=== PATIENT | male | born 1940 | race Caucasian/White ===

== ENCOUNTER 2020-10-13 06:29 | Outpatient (REF) | payer MEDICARE, BC, SELFPAY ==
[2020-10-13 11:23] LABS: MANUAL DIFF FLAG NO
[2020-10-13 11:30] LABS: Basophils Absolute Auto 0.1 X10*3/uL (0.0-0.2); Basophils Percent Auto 0.9 % (0-2); Eosinophils Absolute Auto 0.5 X10*3/uL (0.0-0.4); Eosinophils Percent Auto 9.7 % (0-4); Imm Gran Abs Auto 0.04 X10*3/uL (0.00-0.03); Imm Gran Pct Auto 0.7 % (0.0-0.4); Lymphocytes Absolute Auto 1.2 X10*3/uL (1.2-4.9); Lymphocytes Percent Auto 22.5 % (20-40); Mean Corpuscular HGB Conc 33.3 g/dl (31.0-36.0); Mean Corpuscular Volume 93.1 fL (80-98); Mean Platelet Volume 11.3 fL (9.4-12.4); Monocytes Absolute Auto 0.5 X10*3/uL (0.1-1.2); Monocytes Percent Auto 8.2 % (2-11); Neutrophils Absolute Auto 3.2 X10*3/uL (2.0-8.3); Platelet Count 186 X10*3/uL (160-400); Red Blood Count 4.19 X10*6/uL (4.60-5.80); Red Cell Distribution Width 12.6 % (11.0-16.0); White Blood Count 5.5 X10*3/uL (4.8-10.8)
[2020-10-13 11:35] LABS: Estimated Average Glucose 203 mg/dL; Hemoglobin A1c % 8.7 %
[2020-10-13 11:49] LABS: Alanine Aminotransferase 13 U/L (0-40); Albumin Level 4.6 g/dL (3.5-5.0); Alkaline Phosphatase 56 U/L (39-117); Anion Gap 16 (12-20); Aspartate Amino Transferase 13 U/L (5-37); Bilirubin Total 0.5 mg/dL (0.0-1.0); Blood Urea Nitrogen 45 mg/dL (9-16); Carbon Dioxide 26 mmol/L (22-29); Chloride 106 mmol/L (96-108); Cholesterol 150 mg/dL; Estimated Glomerular Filt Rate 38; Glucose Fasting 135 mg/dL (60-99); HDL Cholesterol 49 mg/dL; LDL Cholesterol Calculated 85 mg/dl; Potassium 5.5 mmol/l (3.3-5.1); Sodium 142 mmol/L (135-145); Triglycerides 84 mg/dL
[2020-10-13 12:00] LABS: Creatinine Urine 93.64 mg/dL; Microalbum/Creatinine Ratio Ur 54.4 ug/mg cr; Prostate Specific Antigen Scr 2.95 ng/mL (<0.05-4.0)
== END 2020-10-13 06:30 | disposition home or self-care (01) ==
LOC: HO.HMGCLDS 06:29
PROVIDERS: PCP Internal Medicine; Visit Provider Internal Medicine
DX: I12.9 Hypertensive chronic kidney disease with stage 1 through stage 4 chronic kidney disease, or unspecified chronic kidney disease (principal); E11.22 Type 2 diabetes mellitus with diabetic chronic kidney disease; N18.9 Chronic kidney disease, unspecified; E78.00 Pure hypercholesterolemia, unspecified; R35.1 Nocturia; Z12.5 Encounter for screening for malignant neoplasm of prostate
CPT/HCPCS: 36415; 80053; 80061; 82043; 83036; 84153; 85025

== ENCOUNTER 2021-02-03 11:50 | Outpatient (REF) | payer MEDICARE, BC, SELFPAY ==
[2021-02-03 13:54] LABS: MANUAL DIFF FLAG NO
[2021-02-03 13:59] LABS: Basophils Percent Auto 0.7 % (0-2); Eosinophils Absolute Auto 0.4 X10*3/uL (0.0-0.4); Eosinophils Percent Auto 6.6 % (0-4); Hematocrit 38.4 % (42-52); Imm Gran Abs Auto 0.03 X10*3/uL (0.00-0.03); Imm Gran Pct Auto 0.5 % (0.0-0.4); Lymphocytes Absolute Auto 1.1 X10*3/uL (1.2-4.9); Mean Corpuscular HGB Conc 33.9 g/dl (31.0-36.0); Mean Corpuscular Hemoglobin 31.6 pg (27.0-33.0); Mean Corpuscular Volume 93.2 fL (80-98); Mean Platelet Volume 11.1 fL (9.4-12.4); Monocytes Absolute Auto 0.5 X10*3/uL (0.1-1.2); Monocytes Percent Auto 9.3 % (2-11); Neutrophils Absolute Auto 3.7 X10*3/uL (2.0-8.3); Neutrophils Percent Auto 63.9 % (45-73); Platelet Count 180 X10*3/uL (160-400); Red Blood Count 4.12 X10*6/uL (4.60-5.80); Red Cell Distribution Width 12.9 % (11.0-16.0); White Blood Count 5.8 X10*3/uL (4.8-10.8)
[2021-02-03 14:08] LABS: Estimated Average Glucose 214 mg/dL; Hemoglobin A1c % 9.1 %
[2021-02-03 14:25] LABS: Alanine Aminotransferase 12 U/L (0-40); Albumin Level 4.4 g/dL (3.5-5.0); Alkaline Phosphatase 54 U/L (39-117); Anion Gap 14 (12-20); Aspartate Amino Transferase 11 U/L (5-37); Bilirubin Total 0.5 mg/dL (0.0-1.0); Blood Urea Nitrogen 33 mg/dL (9-16); Calcium 9.1 mg/dL (8.4-10.2); Carbon Dioxide 25 mmol/L (22-29); Chloride 105 mmol/L (96-108); Estimated Glomerular Filt Rate 42; Glucose Random 174 mg/dL (60-115); Potassium 5.8 mmol/L (3.3-5.1); Sodium 138 mmol/L (135-145); Total Protein 6.6 g/dL (6.5-8.0)
[2021-02-03 14:33] LABS: Creatinine Urine 208.78 mg/dL; Microalbum/Creatinine Ratio Ur 43.5 ug/mg cr
== END 2021-02-03 11:51 | disposition home or self-care (01) ==
LOC: HO.10HDL 11:50
PROVIDERS: Visit Provider Internal Medicine
DX: E11.9 Type 2 diabetes mellitus without complications (principal); N18.9 Chronic kidney disease, unspecified; K21.9 Gastro-esophageal reflux disease without esophagitis
CPT/HCPCS: 36415; 80053; 82043; 83036; 85025

== ENCOUNTER 2021-02-18 11:11 | Outpatient (REF) | payer MEDICARE, BC, SELFPAY ==
--- NOTE | ~2021-02-18 | US_ITS ---
EXAMINATION: US EXTRACRANIAL CAROTID DUPLEX, BILATERAL CLINICAL INFORMATION: Cervical bruit COMPARISON: 01/28/2018 TECHNIQUE: Real-time ultrasound and Doppler techniques (integrating B-mode 2-D vascular images, Doppler spectral analysis and color-flow Doppler imaging) were utilized to interrogate the extracranial carotid arteries, the vertebral arteries and proximal subclavian arteries bilaterally. The degree of stenosis is determined by criteria similar to NASCET. FINDINGS: Right Side: 1. There is mild atherosclerotic plaque seen in the bifurcation/proximal ICA region. 2. The common carotid artery PSV proximally is 87 cm/s and distally 84 cm/s. 3. The proximal internal carotid artery velocities are 61 cm/s systolic and 20 cm/s diastolic. 4. The proximal external carotid artery PSV is 191 cm/s. 5. The vertebral artery shows antegrade flow. 6. The subclavian artery waveforms are normal. Left Side: 1. There is mild atherosclerotic plaque seen in the bifurcation/proximal ICA region. 2. The common carotid artery PSV proximally is 134 cm/s and distally 67 cm/s. 3. The proximal internal carotid artery velocities are 63 cm/s systolic and 22 cm/s diastolic. 4. The proximal external carotid artery PSV is 112 cm/s. 5. The vertebral artery shows antegrade flow. 6. The subclavian artery velocity is elevated. US/US carotid duplex BI IMPRESSION: 1. RIGHT: Minimal, non-hemodynamically significant stenosis of the proximal right internal carotid artery corresponding to a 0-49% stenosis by velocity criteria. 2. LEFT: Minimal, non-hemodynamically significant stenosis of the proximal left internal carotid artery corresponding to a 0-49% stenosis by velocity criteria. 3. Disease category is stable bilaterally compared to 01/28/2018.
[2021-02-18 14:46] LABS: Anion Gap 15 (12-20); Blood Urea Nitrogen 39 mg/dL (9-16); Calcium 9.5 mg/dL (8.4-10.2); Carbon Dioxide 23 mmol/L (22-29); Chloride 108 mmol/L (96-108); Estimated Glomerular Filt Rate 45; Glucose Random 200 mg/dL (60-115); Potassium 6.3 mmol/L (3.3-5.1); Sodium 140 mmol/L (135-145)
== END 2021-02-18 11:12 | disposition home or self-care (01) ==
LOC: HO.US 11:11
PROVIDERS: PCP Internal Medicine; Visit Provider Internal Medicine
DX: R09.89 Other specified symptoms and signs involving the circulatory and respiratory systems (principal); E87.5 Hyperkalemia
CPT/HCPCS: 36415; 80048; 93880

== ENCOUNTER 2021-02-19 07:36 | Outpatient (REF) | payer MEDICARE, BC, SELFPAY ==
[2021-02-19 08:27] LABS: Anion Gap 14 (12-20); Carbon Dioxide 23 mmol/L (22-29); Chloride 108 mmol/L (96-108); Potassium 5.3 mmol/L (3.3-5.1); Sodium 140 mmol/L (135-145)
== END 2021-02-19 07:37 | disposition home or self-care (01) ==
LOC: HO.LAB 07:36
PROVIDERS: PCP Internal Medicine; Visit Provider Internal Medicine
DX: E87.5 Hyperkalemia (principal)
CPT/HCPCS: 36415; 80051

== ENCOUNTER 2021-05-31 11:10 | Outpatient (REF) | payer MEDICARE, BC, SELFPAY ==
[2021-05-31 14:00] LABS: MANUAL DIFF FLAG NO
[2021-05-31 14:08] LABS: Basophils Percent Auto 0.6 % (0-2); Eosinophils Absolute Auto 0.5 X10*3/uL (0.0-0.4); Hematocrit 37.2 % (42-52); Hemoglobin 12.4 g/dl (14.0-18.0); Imm Gran Abs Auto 0.05 X10*3/uL (0.00-0.03); Lymphocytes Absolute Auto 0.9 X10*3/uL (1.2-4.9); Lymphocytes Percent Auto 16.3 % (20-40); Mean Corpuscular HGB Conc 33.3 g/dl (31.0-36.0); Mean Corpuscular Hemoglobin 30.5 pg (27.0-33.0); Mean Corpuscular Volume 91.4 fL (80-98); Mean Platelet Volume 11.3 fL (9.4-12.4); Monocytes Absolute Auto 0.5 X10*3/uL (0.1-1.2); Monocytes Percent Auto 9.8 % (2-11); Neutrophils Absolute Auto 3.3 X10*3/uL (2.0-8.3); Neutrophils Percent Auto 63.3 % (45-73); Platelet Count 221 X10*3/uL (160-400); Red Blood Count 4.07 X10*6/uL (4.60-5.80); Red Cell Distribution Width 12.3 % (11.0-16.0); White Blood Count 5.2 X10*3/uL (4.8-10.8)
[2021-05-31 14:23] LABS: Estimated Average Glucose 194 mg/dL; Hemoglobin A1c % 8.4 %
[2021-05-31 14:39] LABS: Alanine Aminotransferase 13 U/L (0-40); Albumin Level 4.4 g/dL (3.5-5.0); Alkaline Phosphatase 78 U/L (39-117); Anion Gap 17 (12-20); Aspartate Amino Transferase 12 U/L (5-37); Bilirubin Total 0.2 mg/dL (0.0-1.0); Blood Urea Nitrogen 34 mg/dL (9-16); Calcium 9.4 mg/dL (8.4-10.2); Carbon Dioxide 20 mmol/L (22-29); Chloride 108 mmol/L (96-108); Estimated Glomerular Filt Rate 39; Glucose Random 229 mg/dL (60-115); Potassium 5.9 mmol/L (3.3-5.1); Sodium 139 mmol/L (135-145); Total Protein 6.8 g/dL (6.5-8.0)
[2021-05-31 14:48] LABS: Creatinine Urine 155.13 mg/dL; Microalbum/Creatinine Ratio Ur 18.6 ug/mg cr
== END 2021-05-31 11:11 | disposition home or self-care (01) ==
LOC: HO.HMGCLDS 11:10
PROVIDERS: PCP Internal Medicine; Visit Provider Internal Medicine
DX: E11.22 Type 2 diabetes mellitus with diabetic chronic kidney disease (principal); I12.9 Hypertensive chronic kidney disease with stage 1 through stage 4 chronic kidney disease, or unspecified chronic kidney disease; N18.9 Chronic kidney disease, unspecified
CPT/HCPCS: 36415; 80053; 82043; 83036; 85025

== ENCOUNTER 2021-08-23 08:55 | Outpatient (REF) | payer MEDICARE, BC, SELFPAY | END 2021-08-23 08:56 | disposition home or self-care (01) | LOC: HO.LAB 08:55 | PROVIDERS: PCP Internal Medicine; Visit Provider Internal Medicine | DX: Z20.822 Contact with and (suspected) exposure to COVID-19 (principal) | CPT/HCPCS: C9803; U0003; U0005 ==

== ENCOUNTER 2021-12-05 07:00 | Outpatient (REF) | payer MEDICARE, BC, SELFPAY ==
[2021-12-05 07:17] LABS: MANUAL DIFF FLAG NO
[2021-12-05 07:25] LABS: Basophils Percent Auto 0.5 % (0-2); Eosinophils Absolute Auto 0.5 X10*3/uL (0.0-0.4); Eosinophils Percent Auto 8.8 % (0-4); Hematocrit 37.6 % (42.0-52.0); Hemoglobin 12.6 g/dl (14.0-18.0); Imm Gran Abs Auto 0.03 X10*3/uL (0.00-0.03); Imm Gran Pct Auto 0.5 % (0.0-0.4); Lymphocytes Absolute Auto 1.2 X10*3/uL (1.2-4.9); Lymphocytes Percent Auto 22.7 % (20-40); Mean Corpuscular HGB Conc 33.5 g/dl (31.0-36.0); Mean Corpuscular Volume 92.6 fL (80.0-98.0); Mean Platelet Volume 10.6 fL (9.4-12.4); Monocytes Absolute Auto 0.5 X10*3/uL (0.1-1.2); Monocytes Percent Auto 8.8 % (2-11); Neutrophils Absolute Auto 3.2 x10*3/uL (2.0-8.3); Neutrophils Percent Auto 58.7 % (45-73); Platelet Count 168 X10*3/uL (160-400); Red Blood Count 4.06 X10*6/uL (4.60-5.80); Red Cell Distribution Width 12.3 % (11.0-16.0); White Blood Count 5.5 X10*3/uL (4.8-10.8)
[2021-12-05 07:37] LABS: Estimated Average Glucose 209 mg/dL; Hemoglobin A1c % 8.9 %
[2021-12-05 07:54] LABS: Appearance Urine CLEAR; Color Urine YELLOW; Glucose Urine UA 100 MG/DL (NEG); Leukocyte Esterase Urine NEG (NEG); Nitrite Urine NEG (NEG); PH 5.5 (5.0-8.0); Specific Gravity - Urine >= 1.030 (1.005-1.025); Urine Blood NEG (NEG); Urine Ketones NEG (NEG); Urine Protein TRACE MG/DL (NEG-TRACE)
[2021-12-05 08:24] LABS: Creatinine Urine 129.91 mg/dL; Microalbum/Creatinine Ratio Ur 119.3 ug/mg cr
[2021-12-05 08:33] LABS: Prostate Specific Antigen Scr 2.52 ng/mL (<0.05-4.0)
[2021-12-05 08:58] LABS: Alanine Aminotransferase 11 U/L (0-40); Albumin Level 4.3 g/dL (3.5-5.0); Alkaline Phosphatase 54 U/L (39-117); Anion Gap 14 (12-20); Aspartate Amino Transferase 12 U/L (5-37); Bilirubin Total 0.4 mg/dL (0.0-1.0); Blood Urea Nitrogen 38 mg/dL (9-16); Calcium 9.7 mg/dL (8.4-10.2); Carbon Dioxide 23 mmol/L (22-29); Chloride 109 mmol/L (96-108); Cholesterol 144 mg/dL; Estimated Glomerular Filt Rate 36; Glucose Fasting 144 mg/dL (60-99); HDL Cholesterol 51 mg/dL; LDL Cholesterol Calculated 78 mg/dl; Potassium 6.2 mmol/L (3.3-5.1); Sodium 140 mmol/L (135-145); Total Protein 7.1 g/dL (6.5-8.0); Triglycerides 77 mg/dL
== END 2021-12-05 07:01 | disposition home or self-care (01) ==
LOC: HO.LAB 07:00
PROVIDERS: PCP Internal Medicine; Visit Provider Internal Medicine
DX: Z12.5 Encounter for screening for malignant neoplasm of prostate (principal); N40.0 Benign prostatic hyperplasia without lower urinary tract symptoms; E78.00 Pure hypercholesterolemia, unspecified; I10 Essential (primary) hypertension; E11.9 Type 2 diabetes mellitus without complications
CPT/HCPCS: 36415; 80053; 80061; 81003; 82043; 83036; 84153; 85025

== ENCOUNTER 2021-12-05 09:28 | Outpatient (REF) | payer MEDICARE, BC, SELFPAY ==
[2021-12-05 12:53] LABS: Anion Gap 12 (12-20); Blood Urea Nitrogen 37 mg/dL (9-16); Calcium 9.4 mg/dL (8.4-10.2); Carbon Dioxide 24 mmol/L (22-29); Chloride 106 mmol/L (96-108); Estimated Glomerular Filt Rate 36; Glucose Random 228 mg/dL (60-115); Sodium 136 mmol/L (135-145)
== END 2021-12-05 09:29 | disposition home or self-care (01) ==
LOC: HO.HMGCLDS 09:28
PROVIDERS: PCP Internal Medicine; Visit Provider Internal Medicine
DX: E87.5 Hyperkalemia (principal)
CPT/HCPCS: 36415; 80048

== ENCOUNTER 2021-12-05 13:25 | Observation (INO) | payer MEDICARE, BC, SELFPAY ==
--- NOTE | 2021-12-05 | ECG_ITS ---
Test Reason : hyperkalemia Blood Pressure : / mmHG Vent. Rate : 084 BPM Atrial Rate : 084 BPM P-R Int : 148 ms QRS Dur : 070 ms QT Int : 328 ms P-R-T Axes : 065 034 050 degrees QTc Int : 387 ms Normal sinus rhythm Nonspecific ST abnormality Borderline ECG When compared with ECG of 05-MAY-2009 07:27, No significant change was found Referred By: Generic ED Physician Electronically Signed By:AMADEO LYLES
[2021-12-05 14:18] VITALS: BP 114/70; PULSE 86; RESP 17; TEMP 37; O2SAT 98; BMI 19.3
--- NOTE | 2021-12-05 15:13 | ED.GENADULT ---
HPI - General Adult General Chief complaint: Recheck/Abnormal Lab/Rx Stated complaint: abnormal lab result Time Seen by Provider: 12/05/21 14:52 Source: patient Limitations: no limitations History of Present Illness HPI narrative: this is an 81-year-old male sent in for an elevated potassium. He states it was 6.8. He does have known renal disease. He denies any symptoms such as dizziness, chest pain, palpitations, shortness of breath, swelling his extremities. He has been maintaining his normal diet. Related Data Allergies Allergy/AdvReac Type Severity Reaction Status Date / Time dogs and cats Allergy Unknown Uncoded 02/20/17 00:00 year round seasonal Allergy Unknown Uncoded 02/20/17 00:00 Review of Systems Review of Systems: Yes all other systems are reviewed and are negative Constitutional: Constitutional: Reports as per HPI and Denies fever(s) Eyes: Eyes: Reports as per HPI and Reports no additional eye complaints ENT: Reports system reviewed and no additional complaints, except as documented, Reports as per HPI, Denies nasal congestion, Denies nasal discharge and Denies sore throat Cardiovascular: Cardiovascular: Reports as per HPI, Denies chest pain and Denies dyspnea Respiratory: Respiratory: Reports as per HPI, Denies cough and Denies dyspnea Gastrointestinal: Gastrointestinal: Reports as per HPI, Denies abdominal pain, Denies diarrhea and Denies vomiting Genitourinary: Genitourinary: Reports as per HPI, Denies hematuria, Denies dysuria and Denies urinary frequency Musculoskeletal: Musculoskeletal: Reports no additional musculoskeletal complaints and Denies numbness Integumentary/Breasts: Skin/Breast: Reports as per HPI and Denies rash Neurologic: Reports as per HPI, Denies focal weakness and Denies numbness Psychiatric: Psychiatric: Reports no additional psychiatric complaints and Reports as per HPI Endocrine: Endocrine: Reports no additional endocrine complaints and Reports as per HPI Hematologic/Lymphatic: Hematologic/Lymphatic: Reports no additional hematologic/lymphatic complaints, Reports as per HPI and Reports other (No peripheral edema) [facility] Past Medical History Medical History (Updated 12/05/21 @ 16:40 by Karthik Yeboah MD) Diabetes Hyperkalemia Social History Social History Advance Directives: No Advance Directives Information Provided: No Physical Exam ED Vital Signs: Vital Signs - 24 hr 12/05/21 14:18 12/05/21 15:49 12/05/21 16:11 Temperature 98.6 F Pulse Rate 86 86 89 Respiratory Rate 17 12 13 Blood Pressure 114/70 138/79 Pulse Oximetry 98 BMI result Body Mass Index 19.3 Const General: no acute distress Orientation/consciousness: patient oriented x3 HENMT Head: Yes normal to inspection General nose exam: Normal external nose present Mouth: moist mucous membranes Throat: Yes posterior oropharynx normal, Yes tonsils normal and Yes uvula midline Eyes Eyelids: Yes eyelids normal Conjunctivae: conjunctivae normal Pupils: Equal, round and reactive pupils present Neck Neck: Yes supple Resp Effort & Inspection: normal respiratory effort Auscultation: clear to auscultation bilaterally Cardio Rate: regular rate Rhythm: regular rhythm Heart sounds: S1 normal heart sound present, S2 normal heart sound present, no gallops, no murmurs and no rubs GI Inspection: No distended Palpation (GI): Soft to palpation and nontender Auscultation: normal bowel sounds Skin General skin exam: other (Warm and dry) Neuro General: patient oriented x3 and CN's II-XI intact bilaterally Cranial nerves: Yes Equal, round and reactive pupils present Extrem General: Yes no pedal edema Psych Affect: normal affect Attitude: cooperative Medical Decision Making Lab Data Lab results reviewed: Yes I reviewed the patient's lab results. Result diagrams: 12/05/21 15:45 12/05/21 15:45 Labs: Lab Results 12/05/21 12/05/21 12/05/21 Range/Units 15:45 15:45 15:45 WBC 6.0 (4.8-10.8) X10*3/uL RBC 4.04 L (4.60-5.80) X10*6/uL Hgb 12.6 L (14.0-18.0) g/dl Hct 37.4 L (42.0-52.0) % MCV 92.6 (80.0-98.0) fL MCH 31.2 (27.0-33.0) pg MCHC 33.7 (31.0-36.0) g/dl RDW 12.6 (11.0-16.0) % Plt Count 171 (160-400) X10*3/uL MPV 10.5 (9.4-12.4) fL Immature Gran % (Auto) 0.7 H (0.0-0.4) % Neut % (Auto) 64.1 (45-73) % Lymph % (Auto) 19.8 L (20-40) % [place] % (Auto) 7.6 (2-11) % Eos % (Auto) 7.1 H (0-4) % Baso % (Auto) 0.7 (0-2) % Lymph # (Auto) 1.2 (1.2-4.9) X10*3/uL [place] # (Auto) 0.5 (0.1-1.2) X10*3/uL Eos # (Auto) 0.4 (0.0-0.4) X10*3/uL Baso # (Auto) 0.0 (0.0-0.2) X10*3/uL Abs Immat Gran (auto) 0.04 H (0.00-0.03) X10*3/uL Absolute Neuts (auto) 3.9 (2.0-8.3) x10*3/uL Absolute Nucleated RBC 0.000 (0.0-0.012) X10*3/uL Nucleated RBC % (auto) 0.0 (0.0-0.2) /100WBC Sodium 139 (135-145) mmol/L Potassium 5.8 H (3.3-5.1) mmol/L Chloride 106 (96-108) mmol/L Carbon Dioxide 23 (22-29) mmol/L Anion Gap 16 (12-20) BUN 38 H (9-16) mg/dL Creatinine 1.81 H (0.5-1.4) mg/dL Estim Creat Clear Calc 26.6 Estimated GFR 36 Random Glucose 261 H (60-115) mg/dL Calcium 9.3 (8.4-10.2) mg/dL Magnesium 1.9 (1.6-2.6) mg/dL Total Bilirubin 0.2 (0.0-1.0) mg/dL AST 12 (5-37) U/L ALT 11 (0-40) U/L Alkaline Phosphatase 58 (39-117) U/L Total Protein 7.2 (6.5-8.0) g/dL Albumin 4.4 (3.5-5.0) g/dL Urine Color YELLOW Urine Appearance CLEAR Urine pH 6.0 (5.0-8.0) Ur Specific [place] 1.020 (1.005-1.025) Urine Protein NEG (NEG-TRACE) MG/DL Urine Glucose (UA) >=1000 H (NEG) MG/DL Urine Ketones NEG (NEG) MG/DL Urine Blood NEG (NEG) Urine Nitrite NEG (NEG) Ur Leukocyte Esterase NEG (NEG) Urine RBC 0 (0) /HPF Urine WBC 0 (0-4) /HPF Ur Squamous Epith Cells NONE /LPF Urine Bacteria NONE /LPF ECG Data Attestation: I personally reviewed and interpreted this ECG as follows: Interpretation: sinus rhythm with a rate of 84. Peak she weighs visible in leads V2 through the 4. No ST elevation, mild depression in inferolateral leads. Discharge Plan Discharge Clinical Impression: Acute hyperkalemia, Chronic kidney insufficiency
[2021-12-05 15:49] VITALS: PULSE 86; RESP 12; O2SAT 97
[2021-12-05 15:49] LABS: MANUAL DIFF FLAG NO
[2021-12-05] MEDS: Albuterol Sulfate (0.083%) 2.5 MG/3 ML VIAL.NEB 5 MG INHALE (15:49)
[2021-12-05 15:54] LABS: Basophils Percent Auto 0.7 % (0-2); Eosinophils Absolute Auto 0.4 X10*3/uL (0.0-0.4); Eosinophils Percent Auto 7.1 % (0-4); Hematocrit 37.4 % (42.0-52.0); Hemoglobin 12.6 g/dl (14.0-18.0); Imm Gran Abs Auto 0.04 X10*3/uL (0.00-0.03); Imm Gran Pct Auto 0.7 % (0.0-0.4); Lymphocytes Absolute Auto 1.2 X10*3/uL (1.2-4.9); Lymphocytes Percent Auto 19.8 % (20-40); Mean Corpuscular HGB Conc 33.7 g/dl (31.0-36.0); Mean Corpuscular Hemoglobin 31.2 pg (27.0-33.0); Mean Corpuscular Volume 92.6 fL (80.0-98.0); Mean Platelet Volume 10.5 fL (9.4-12.4); Monocytes Absolute Auto 0.5 X10*3/uL (0.1-1.2); Monocytes Percent Auto 7.6 % (2-11); Neutrophils Absolute Auto 3.9 x10*3/uL (2.0-8.3); Neutrophils Percent Auto 64.1 % (45-73); Platelet Count 171 X10*3/uL (160-400); Red Blood Count 4.04 X10*6/uL (4.60-5.80); Red Cell Distribution Width 12.6 % (11.0-16.0)
[2021-12-05 16:01] LABS: Appearance Urine CLEAR; Color Urine YELLOW; Glucose Urine UA >=1000 MG/DL (NEG); Leukocyte Esterase Urine NEG (NEG); Nitrite Urine NEG (NEG); Urine Blood NEG (NEG); Urine Ketones NEG (NEG); Urine Protein NEG (NEG-TRACE)
[2021-12-05 16:08] LABS: RBC Urine 0 /HPF (0); WBC Urine 0 /HPF (0-4)
[2021-12-05 16:11] VITALS: BP 138/79; PULSE 89; RESP 13
[2021-12-05 16:11] LABS: Alanine Aminotransferase 11 U/L (0-40); Albumin Level 4.4 g/dL (3.5-5.0); Alkaline Phosphatase 58 U/L (39-117); Anion Gap 16 (12-20); Aspartate Amino Transferase 12 U/L (5-37); Bilirubin Total 0.2 mg/dL (0.0-1.0); Blood Urea Nitrogen 38 mg/dL (9-16); Calcium 9.3 mg/dL (8.4-10.2); Carbon Dioxide 23 mmol/L (22-29); Chloride 106 mmol/L (96-108); Creatinine Clr Calc Pharmacy 26.6; Estimated Glomerular Filt Rate 36; Glucose Random 261 mg/dL (60-115); Magnesium 1.9 mg/dL (1.6-2.6); Potassium 5.8 mmol/L (3.3-5.1); Sodium 139 mmol/L (135-145); Total Protein 7.2 g/dL (6.5-8.0)
[2021-12-05] MEDS: Insulin Regular, Human 100 UNIT/ML 3 ML VIAL 10 UNIT IVPUSH (16:12)
[2021-12-05] MEDS: Sodium Bicarbonate 8.4% 50 MEQ/50 ML SYRINGE IVPUSH (16:13)
--- NOTE | 2021-12-05 17:20 | PC.NURSE ---
Sina ([facility]) [phone]
[2021-12-05] MEDS: Sodium Polystyrene Sulfon/Sorb 15 GM/60 ML ORAL.SUSP 30 GM PO (17:21)
[2021-12-05 17:28] LABS: Glucose, Whole Blood 146 mg/dL (60-115)
[2021-12-05 17:28] LABS: Glucose, Whole Blood 212 mg/dL (60-115)
--- NOTE | 2021-12-05 17:51 | PC.NURSE ---
plan for pt to be admit to the hospital. he is aware. grandson at bedside phone number placed in notes.
--- NOTE | 2021-12-05 18:09 | PHA.MEDREC ---
Pharmacy Consult ? Medication Reconciliation Pharmacy has completed the medication reconciliation. Spoke with patient in ED who had a list of all medications which also matched claim history. Patient took all AM medications.
[2021-12-05 18:46] VITALS: BP 129/71; PULSE 94; RESP 20; TEMP 36.6; O2SAT 98
--- NOTE | 2021-12-05 18:54 | PM.IMHP ---
History of Present Illness Date of Service: 12/05/21 Attending physician on admission: Lupe Xiao Chief Complaint: HYPERKALEMIA, concern about peaked T-waves EKG 81-year-old male with history of possible CKD, diabetes, hypertension, hypercholesteremia-who was sent from PCP's office because potassium was high-as per ED physician in the PCP office is potassium was 6.8, so sent to the hospital. Patient received Kayexalate, Lokelma, nebs, insulin potassium is coming down to 5.8, ED physician given admission for overnight monitoring, also was concern of EKG peak taking T-waves which seems better than previous EKG. Denies any new complaint of chest pain or shortness of breath or abdominal pain or fever or chills or nausea or vomiting Denies any cough Denies any weakness or numbness. Review of Systems Review of Systems: As above. [facility] Medical History Diabetes Hyperkalemia Pertinent family history: Patient mother had diabetes and hypertension. Social History Advance Directives: No Advance Directives Information Provided: No Meds Allergies Allergy/AdvReac Type Severity Reaction Status Date / Time dogs and cats Allergy Unknown Uncoded 02/20/17 00:00 year round seasonal Allergy Unknown Uncoded 02/20/17 00:00 Active Medications: Current Medications Amlodipine Besylate (Amlodipine Besylate 5 Mg Tablet) 5 mg PO DAILY ZELDA; Protocol Atorvastatin Calcium (Atorvastatin Calcium 20 Mg Tablet) 20 mg PO BEDTIME ZELDA Carvedilol (Carvedilol 6.25 Mg Tablet) 6.25 mg PO BID ZELDA; Protocol Neomycin/Polymyxin/Hydrocortisone (Neomycin/Polymyxin/Hc Otic [place] 10 Ml Drpbtl) 4 drop EAR-BOTH QID ZELDA Omeprazole (Omeprazole 20 Mg Capsule.Dr) 20 mg PO DAILY@0630 PRN PRN Reason: Acid Reflux Pharmacy Consult (Consult Rx Perform Med Rec) 1 each MISCELLANE ONCE PRN PRN Reason: Consult order Sodium Chloride (0.9 % Sodium Chloride Flush 3 Ml Syringe) 3 ml IVFLUSH QSHIFT ZELDA Tamsulosin HCl (Tamsulosin Hcl 0.4 Mg Capsule) 0.4 mg PO BEDTIME ZELDA Vitamin D (Cholecalciferol (Vitamin D3) 25 Mcg Tablet) 25 mcg PO DAILY [facility] Home Medications Medication Instructions Recorded Confirmed Last Taken Type amlodipine 5 mg tablet 1 tab PO DAILY 12/05/21 12/05/21 12/05/21 History carvedilol 6.25 mg tablet 1 tab PO BID 12/05/21 12/05/21 12/05/21 History cholecalciferol (vitamin D3) 25 25 mcg PO DAILY 12/05/21 12/05/21 12/05/21 History mcg (1,000 unit) tablet glipizide 10 mg tablet 1 tab PO BID@0900,1700 12/05/21 12/05/21 12/05/21 History metformin 500 mg tablet 1 tab PO BID@0900,1700 12/05/21 12/05/21 12/05/21 History [id number]-bgpnmzfdw-qbopwlmrh 3.5 4 drp OTIC (EARS) QID 12/05/21 12/05/21 12/05/21 History mg-10,000 unit/mL-1 % ear drops,susp omeprazole 20 mg capsule,delayed 20 mg PO DAILY@0630 PRN 12/05/21 12/05/21 Unknown History release simvastatin 40 mg tablet 1 tab PO BEDTIME 12/05/21 12/05/21 12/04/21 History tamsulosin 0.4 mg capsule 1 cap PO BEDTIME 12/05/21 12/05/21 12/04/21 History Physical Exam Vital Signs and Narrative: Vital Signs: Last Vital Signs Temp 97.9 F 12/05/21 18:46 Pulse 94 12/05/21 18:46 Resp 20 12/05/21 18:46 BP 129/71 12/05/21 18:46 Pulse Ox 98 12/05/21 18:46 BMI result Body Mass Index 19.3 Appearance: Alert.? Oriented X3.? Eyes: Pupils equal, round and reactive to light.? Sclera nonicteric.? ENT: Pharynx normal.? Moist mucous membranes. cvs: rrr, [id number] , no murmur res: clear to auscultation ,no rhonchii or wheezing abd: no rebound or guarding ,nt, bs present. ext pulses present , no cyanosis . neuro: axo3 , nonfocal. Results Labs CBC and Chem 7: 12/05/21 15:45 12/05/21 15:45 Labs: Laboratory Results - last 24 hr 12/05/21 12/05/21 12/05/21 15:45 15:45 15:45 MCV 92.6 MCH 31.2 MCHC 33.7 RDW 12.6 Plt Count 171 MPV 10.5 Immature Gran % (Auto) 0.7 H Neut % (Auto) 64.1 Lymph % (Auto) 19.8 L [place] % (Auto) 7.6 Eos % (Auto) 7.1 H Baso % (Auto) 0.7 Lymph # (Auto) 1.2 [place] # (Auto) 0.5 Eos # (Auto) 0.4 Baso # (Auto) 0.0 Abs Immat Gran (auto) 0.04 H Absolute Neuts (auto) 3.9 Absolute Nucleated RBC 0.000 Nucleated RBC % (auto) 0.0 Anion Gap 16 Estim Creat Clear Calc 26.6 Estimated GFR 36 POC Glucose Random Glucose 261 H Calcium 9.3 Magnesium 1.9 Total Bilirubin 0.2 AST 12 ALT 11 Alkaline Phosphatase 58 Total Protein 7.2 Albumin 4.4 Urine Color YELLOW Urine Appearance CLEAR Urine pH 6.0 Ur Specific [place] 1.020 Urine Protein NEG Urine Glucose (UA) >=1000 H Urine Ketones NEG Urine Blood NEG Urine Nitrite NEG Ur Leukocyte Esterase NEG Urine RBC 0 Urine WBC 0 Ur Squamous Epith Cells NONE Urine Bacteria NONE 12/05/21 12/05/21 16:07 17:08 MCV MCH MCHC RDW Plt Count MPV Immature Gran % (Auto) Neut % (Auto) Lymph % (Auto) [place] % (Auto) Eos % (Auto) Baso % (Auto) Lymph # (Auto) [place] # (Auto) Eos # (Auto) Baso # (Auto) Abs Immat Gran (auto) Absolute Neuts (auto) Absolute Nucleated RBC Nucleated RBC % (auto) Anion Gap Estim Creat Clear Calc Estimated GFR POC Glucose 212 H 146 H Random Glucose Calcium Magnesium Total Bilirubin AST ALT Alkaline Phosphatase Total Protein Albumin Urine Color Urine Appearance Urine pH Ur Specific [place] Urine Protein Urine Glucose (UA) Urine Ketones Urine Blood Urine Nitrite Ur Leukocyte Esterase Urine RBC Urine WBC Ur Squamous Epith Cells Urine Bacteria ECG Attestation: I personally reviewed and interpreted this ECG as follows: (EKG T-waves seems slightly better than the previous EKG.) Assessment and Plan (1) Acute hyperkalemia: Status: Acute (2) Chronic kidney insufficiency: Status: Acute Plan 81-year-old male with past medical history of possible CKD, diabetes, hypertension-ED requested admission for hyperkalemia. 1. CKD/hyperkalemia: Patient was given nebs/insulin/Kayexalate in ED Also added Lokelma Potassium is trending down Monitor patient on tele, repeat EKG in the morning. Monitor BMP in a.m.. Nephrology evaluation. 2. Diabetes: Fingersticks with coverage Hold home oral hypoglycemic medications 3. Hypertension: Continue home medications. 4. DVT prophylaxis: SubQ heparin. Above management discussed with patient in detail length-he understand and in agreement with the plan, time spent 70 minute. patient admitted for observation. Quality Stroke Does the patient have a stroke diagnosis?: No VTE Prior VTE?: No VTE Risk Level:: Medical - moderate - high VTE Device Contraindication: N/A - Device Ordered VTE Drug Contraindication: N/A - Med Ordered
[2021-12-05 19:23] LABS: COVID-19 Test Negative (Negative); IDNOW Serial# 16C4AD1C
[2021-12-05] MEDS: NeoMYCIN/Polymyxin/HC Otic Sus 10 ML DRPBTL 4 DROP EAR-BOTH (21:52)
[2021-12-05] MEDS: carvediloL 6.25 MG TABLET PO (21:52)
[2021-12-05] MEDS: Atorvastatin Calcium 20 MG TABLET PO (21:52)
[2021-12-05] MEDS: Tamsulosin HCL 0.4 MG CAPSULE PO (21:52)
[2021-12-05] MEDS: Heparin Sodium,Porcine 5,000 UNIT/ML VIAL 5000 UNIT SUBCUT (21:53)
[2021-12-05 23:51] LABS: Glucose, Whole Blood 238 mg/dL (60-115)
[2021-12-06 00:15] VITALS: BP 130/88; PULSE 90; RESP 18; TEMP 36.8; O2SAT 98
[2021-12-06] MEDS: 0.9 % Sodium Chloride Flush 3 ML SYRINGE IVFLUSH (01:01)
[2021-12-06 06:11] VITALS: BP 113/69; PULSE 88; RESP 21; TEMP 36.6; O2SAT 97
[2021-12-06 06:13] LABS: MANUAL DIFF FLAG NO
[2021-12-06 06:17] LABS: Basophils Percent Auto 0.6 % (0-2); Eosinophils Absolute Auto 0.4 X10*3/uL (0.0-0.4); Eosinophils Percent Auto 7.2 % (0-4); Hematocrit 35.5 % (42.0-52.0); Imm Gran Abs Auto 0.02 X10*3/uL (0.00-0.03); Imm Gran Pct Auto 0.4 % (0.0-0.4); Lymphocytes Absolute Auto 0.9 X10*3/uL (1.2-4.9); Lymphocytes Percent Auto 17.6 % (20-40); Mean Corpuscular HGB Conc 33.8 g/dl (31.0-36.0); Mean Corpuscular Hemoglobin 31.2 pg (27.0-33.0); Mean Corpuscular Volume 92.2 fL (80.0-98.0); Mean Platelet Volume 10.8 fL (9.4-12.4); Monocytes Absolute Auto 0.4 X10*3/uL (0.1-1.2); Monocytes Percent Auto 7.8 % (2-11); Neutrophils Absolute Auto 3.2 x10*3/uL (2.0-8.3); Neutrophils Percent Auto 66.4 % (45-73); Platelet Count 151 X10*3/uL (160-400); Red Blood Count 3.85 X10*6/uL (4.60-5.80); Red Cell Distribution Width 12.6 % (11.0-16.0); White Blood Count 4.9 X10*3/uL (4.8-10.8)
[2021-12-06 06:35] LABS: Anion Gap 14 (12-20); Blood Urea Nitrogen 38 mg/dL (9-16); Calcium 9.6 mg/dL (8.4-10.2); Carbon Dioxide 26 mmol/L (22-29); Chloride 108 mmol/L (96-108); Creatinine Clr Calc Pharmacy 27.2; Estimated Glomerular Filt Rate 37; Glucose Random 151 mg/dL (60-115); Potassium 6.1 mmol/L (3.3-5.1); Sodium 142 mmol/L (135-145)
--- NOTE | 2021-12-06 06:41 | PM.EVENT ---
Event Note Date of Service: 12/06/21 Event Note: Hyperkalemia: A.m. lab showed potassium of 6.1. Will give insulin + dextrose plus calcium gluconate. Repeat BMP in 4 hours
[2021-12-06 07:22] LABS: Glucose, Whole Blood 135 mg/dL (60-115)
[2021-12-06] MEDS: Insulin Regular, Human 100 UNIT/ML 3 ML VIAL IVPUSH (08:41)
[2021-12-06] MEDS: Calcium Gluconate/NaCl,Iso-Osm 1 GM/50 ML PLAST..BAG IV (08:48)
[2021-12-06] MEDS: Heparin Sodium,Porcine 5,000 UNIT/ML VIAL 5000 UNIT SUBCUT (08:49)
[2021-12-06] MEDS: Cholecalciferol (Vitamin D3) 25 MCG TABLET PO (09:02)
[2021-12-06] MEDS: amLODIPine Besylate 5 MG TABLET PO (09:02)
[2021-12-06] MEDS: carvediloL 6.25 MG TABLET PO (09:02)
--- NOTE | 2021-12-06 09:06 | MHC.CM.PN ---
Patient lives in a house with his and uses a cane at times. [employer] addressed with /Noelle @ [phone] and original will be mailed to her and a copy has been placed on the chart. Home/no services is the goal for dc and CM has initiated and will follow for dc planning. PCP is Dr. Beny Berrios and Patient has received Covid/Moderna vax X3.
[2021-12-06] MEDS: NeoMYCIN/Polymyxin/HC Otic Sus 10 ML DRPBTL 4 DROP EAR-BOTH (09:07)
--- NOTE | 2021-12-06 09:18 | MHC.CM.PN ---
Per RN CM, Patient has been changed from OBS to Inpatient; IMM was addressed with /Noelle over the phone at [phone] and original will be mailed certified letter to her and a copy has been placed on the chart.
[2021-12-06 09:35] VITALS: BP 123/65; PULSE 99; RESP 12; O2SAT 99
[2021-12-06 10:32] LABS: Potassium 5.6 mmol/L (3.3-5.1)
--- NOTE | 2021-12-06 10:39 | PM.CNNEP ---
History of Present Illness Reason for Consult Consult date: 12/06/21 Chief Complaint Chief complaint: Hyperkalemia EKG Changes History of Present Illness Narrative: 81-year-old male with history of CKD, diabetes, hypertension, hypercholesteremia as well as hyperkalemia was sent from PCP's office as his potassium was high. In the PCP office , potassium was 6.8. He received Kayexalate, Lokelma, nebs, insulin. He denies any intake of NSAID's, ACEI, ARB, Spironolactone or HF symptoms. He has no nausea, vomiting or diarrhea. He does not follow low K diet. He is not a diabetic. Nephrology has been consulted to assist in his clinical care during his current hospital stay Review of Systems Review of Systems Yes all other systems are reviewed and are negative PMFSH Past Medical History Medical History Diabetes Hyperkalemia Social History Social History Advance Directives: No Advance Directives Information Provided: No service: No Current occupational status: retired [employer] Allergies Allergy/AdvReac Type Severity Reaction Status Date / Time dogs and cats Allergy Unknown Uncoded 02/20/17 00:00 year round seasonal Allergy Unknown Uncoded 02/20/17 00:00 Active Medications: Current Medications Amlodipine Besylate (Amlodipine Besylate 5 Mg Tablet) 5 mg PO DAILY [facility]; Protocol Last Admin: 12/06/21 09:02 Dose: 5 mg Documented by: Atorvastatin Calcium (Atorvastatin Calcium 20 Mg Tablet) 20 mg PO BEDTIME ZELDA Last Admin: 12/05/21 21:52 Dose: 20 mg Documented by: Carvedilol (Carvedilol 6.25 Mg Tablet) 6.25 mg PO BID ZELDA; Protocol Last Admin: 12/06/21 09:02 Dose: 6.25 mg Documented by: Dextrose (Dextrose 50 % 25 Gm/50 Ml Vial) 25 gm IVPUSH Q15M PRN; Protocol PRN Reason: per Hypoglycemia Standing Ord. Glucose (Glucose Gel 15 Gm Gel..Gram.) 15 gm PO Q15M PRN; Protocol PRN Reason: per Hypoglycemia Standing Ord. Heparin Sodium (Porcine) (Heparin Sodium,Porcine 5,000 Unit/Ml Vial) 5,000 unit SUBCUT Q12H [facility] Last Admin: 12/06/21 08:49 Dose: 5,000 unit Documented by: Insulin Human Lispro (Insulin Lispro 100 Unit/Ml 3 Ml Vial) 0 unit SUBCUT QIDACHS [facility]; Protocol Last Admin: 12/06/21 08:27 Dose: Not Given Documented by: Neomycin/Polymyxin/Hydrocortisone (Neomycin/Polymyxin/Hc Otic [place] 10 Ml Drpbtl) 4 drop EAR-BOTH QID [facility] Last Admin: 12/06/21 09:07 Dose: 4 drop Documented by: Omeprazole (Omeprazole 20 Mg Capsule.Dr) 20 mg PO DAILY@0630 PRN PRN Reason: Acid Reflux Pharmacy Consult (Consult Rx Perform Med Rec) 1 each MISCELLANE ONCE PRN PRN Reason: Consult order Sodium Chloride (0.9 % Sodium Chloride Flush 3 Ml Syringe) 3 ml IVFLUSH QSHIFT [facility] Last Admin: 12/06/21 09:00 Dose: Not Given Documented by: Tamsulosin HCl (Tamsulosin Hcl 0.4 Mg Capsule) 0.4 mg PO BEDTIME [facility] Last Admin: 12/05/21 21:52 Dose: 0.4 mg Documented by: Vitamin D (Cholecalciferol (Vitamin D3) 25 Mcg Tablet) 25 mcg PO DAILY [facility] Last Admin: 12/06/21 09:02 Dose: 25 mcg Documented by: Home Medications Medication Instructions Recorded Confirmed Last Taken Type amlodipine 5 mg tablet 1 tab PO DAILY 12/05/21 12/05/21 12/05/21 History carvedilol 6.25 mg tablet 1 tab PO BID 12/05/21 12/05/21 12/05/21 History cholecalciferol (vitamin D3) 25 25 mcg PO DAILY 12/05/21 12/05/21 12/05/21 History mcg (1,000 unit) tablet glipizide 10 mg tablet 1 tab PO BID@0900,1700 12/05/21 12/05/21 12/05/21 History metformin 500 mg tablet 1 tab PO BID@0900,1700 12/05/21 12/05/21 12/05/21 History ipbvkofe-pueetxelt-tjuzdyexs 3.5 4 drp OTIC (EARS) QID 12/05/21 12/05/21 12/05/21 History mg-10,000 unit/mL-1 % ear drops,susp omeprazole 20 mg capsule,delayed 20 mg PO DAILY@0630 PRN 12/05/21 12/05/21 Unknown History release simvastatin 40 mg tablet 1 tab PO BEDTIME 12/05/21 12/05/21 12/04/21 History tamsulosin 0.4 mg capsule 1 cap PO BEDTIME 12/05/21 12/05/21 12/04/21 History Physical Exam Vital Signs: Last Vital Signs Temp 97.9 F 12/06/21 06:11 Pulse 99 12/06/21 09:35 Resp 12 12/06/21 09:35 BP 123/65 12/06/21 09:35 Pulse Ox 99 12/06/21 09:35 BMI result Body Mass Index 19.3 Const General: no acute distress Eyes EOM: EOMs intact bilaterally Neck Neck: Yes supple Resp Auscultation: diminished lung sounds Cardio Rate: regular rate GI Palpation (GI): Soft to palpation Neuro General: moves all extremities Results Lab Results Result Diagrams: 12/06/21 05:45 12/06/21 10:08 Lab results: Chemistry 12/05/21 12/06/21 12/06/21 15:45 05:45 10:08 Sodium 139 142 Potassium 5.8 H 6.1 H* 5.6 H Carbon Dioxide 23 26 BUN 38 H 38 H Creatinine 1.81 H 1.77 H Calcium 9.3 9.6 Hematology 12/05/21 12/06/21 15:45 05:45 WBC 6.0 4.9 Hgb 12.6 L 12.0 L Plt Count 171 151 L Urinalysis 12/05/21 15:45 Urine Color YELLOW Urine Appearance CLEAR Urine pH 6.0 Ur Specific [place] 1.020 Urine Protein NEG Urine Glucose (UA) >=1000 H Urine Ketones NEG Urine Blood NEG Urine Nitrite NEG Ur Leukocyte Esterase NEG Urine RBC 0 Urine WBC 0 Ur Squamous Epith Cells NONE Assessment and Plan (1) Acute hyperkalemia: Status: Acute (2) CKD (chronic kidney disease) stage 4, GFR 15-29 ml/min: Status: Acute Plan Serum potassium improving Renal functions close to baseline Not metabolically acidotic No DM; Not on ACEI/ARB/Spironolactone Good hydration; No NSAID's 2 Gram Potassium Diet Lokelma 10 Gram daily for a week followed by Lokelma 10 Gram 3 times a week at discharge Shall arrange office follow up when D/[place] Procedures Date of Service Date of Service: 12/06/21
--- NOTE | 2021-12-06 12:52 | P.DS_ITS ---
DS: Providers Provider Date of Service: 12/06/21 <Starr Roldan NP - Last Filed: 12/07/21 16:06> Date of admission: 12/05/21 18:13 <Starr Roldan NP - Last Filed: 12/07/21 16:06> Primary care physician: Beny Berrios MD <Starr Roldan NP - Last Filed: 12/07/21 16:06> Consults: 12/05/21 19:02 Consult to Nephrology Routine Consulting Provider: Leonid French Reason for consultation: ckd , hyperkalemia Has provider been notified: No <Starr Roldan NP - Last Filed: 12/07/21 16:06> Attending physician on discharge: Fox Samuel <Starr Roldan NP - Last Filed: 12/07/21 16:06> Discharging clinician: Starr Roldan <Starr Roldan NP - Last Filed: 12/07/21 16:06> DS: Diagnosis Discharge Diagnosis (1) Acute hyperkalemia: Status: Acute <Starr Roldan NP - Last Filed: 12/07/21 16:06> (2) CKD (chronic kidney disease) stage 4, GFR 15-29 ml/min: Status: Acute <Starr Roldan NP - Last Filed: 12/07/21 16:06> DS: Summary Hospital Course Hospital Course: HP as per admitting provider 81-year-old male with history of possible CKD, diabetes, hypertension, hypercholesteremia-who was sent from PCP's office because potassium was high-as per ED physician in the PCP office is potassium was 6.8, so sent to the hospital.Patient received Kayexalate, Lokelma, nebs, insulin potassium is coming down to 5.8, ED physician given admission for overnight monitoring, also was concern of EKG peak taking T-waves which seems better than previous EKG . CKD stage 4/hyperkalemia Patient was given nebs/insulin/Kayexalate in the ED Also added Lokelma potassium chronically elevated ? diet? Not on Arnold/ARB, no NSAIDs, good hydration , no acidosis continue 2gm potassium diet at home Lokelma 10gm daily for 7 days the 10gms three times weekly Seen and evaluated by nephrology, will follow up in the office as outpatient Diabetes Fingersticks with coverage Home oral hypoglycemic medications held Hypertension Continue home medications. <Starr Roldan NP - Last Filed: 12/07/21 16:06> Time Spent with Patient Time attestation: Total time spent providing and/or coordinating discharge services: <Starr Roldan NP - Last Filed: 12/07/21 16:06> Discharge coordination time: Greater than 30 minutes <Starr Roldan NP - Last Filed: 12/07/21 16:06> Quality: Stroke Does the patient have a stroke diagnosis?: No <Starr Roldan NP - Last Filed: 12/07/21 16:06> Physical Exam Vital Signs: Vital Signs: Last Vital Signs Temp 97.9 F 12/06/21 06:11 Pulse 99 12/06/21 09:35 Resp 12 12/06/21 09:35 BP 123/65 12/06/21 09:35 Pulse Ox 99 12/06/21 09:35 BMI result Body Mass Index 19.3 <Starr Roldan NP - Last Filed: 12/07/21 16:06> Appearing in no acute distress head is normocephalic atraumatic eyes pupils are PERRLA sclera is anicteric mouth throat mucous membranes are intact and moist neck is supple no lymphadenopathy, no JVD noted lung sounds are clear to auscultation heart regular rate rhythm, clear S1, S2 positive bowel sounds, abdomen is soft, nontender neuro patient is alert x3, no focal deficits <Starr Roldan NP - Last Filed: 12/07/21 16:06> DS: Data Data Completed and Pending Labs on day of discharge: Laboratory Results - last 24 hr 12/05/21 12/05/21 12/05/21 15:45 15:45 15:45 WBC 6.0 RBC 4.04 L Hgb 12.6 L Hct 37.4 L MCV 92.6 MCH 31.2 MCHC 33.7 RDW 12.6 Plt Count 171 MPV 10.5 Immature Gran % (Auto) 0.7 H Neut % (Auto) 64.1 Lymph % (Auto) 19.[address] % (Auto) 7.6 Eos % (Auto) 7.1 H Baso % (Auto) 0.7 Lymph # (Auto) 1.2 [place] # (Auto) 0.5 Eos # (Auto) 0.4 Baso # (Auto) 0.0 Abs Immat Gran (auto) 0.04 H Absolute Neuts (auto) 3.9 Absolute Nucleated RBC 0.000 Nucleated RBC % (auto) 0.0 Sodium 139 Potassium 5.8 H Chloride 106 Carbon Dioxide 23 Anion Gap 16 BUN 38 H Creatinine 1.81 H Estim Creat Clear Calc 26.6 Estimated GFR 36 POC Glucose Random Glucose 261 H Calcium 9.3 Magnesium 1.9 Total Bilirubin 0.2 AST 12 ALT 11 Alkaline Phosphatase 58 Total Protein 7.2 Albumin 4.4 Urine Color YELLOW Urine Appearance CLEAR Urine pH 6.0 Ur Specific [place] 1.020 Urine Protein NEG Urine Glucose (UA) >=1000 H Urine Ketones NEG Urine Blood NEG Urine Nitrite NEG Ur Leukocyte Esterase NEG Urine RBC 0 Urine WBC 0 Ur Squamous Epith Cells NONE Urine Bacteria NONE COVID-19 ([facility]ICK) COVID-Mainstream Data 12/05/21 12/05/21 12/05/21 16:07 17:08 18:49 WBC RBC Hgb Hct MCV MCH MCHC RDW Plt Count MPV Immature Gran % (Auto) Neut % (Auto) Lymph % (Auto) [place] % (Auto) Eos % (Auto) Baso % (Auto) Lymph # (Auto) [facility] # (Auto) Eos # (Auto) Baso # (Auto) Abs Immat Gran (auto) Absolute Neuts (auto) Absolute Nucleated RBC Nucleated RBC % (auto) Sodium Potassium Chloride Carbon Dioxide Anion Gap BUN Creatinine Estim Creat Clear Calc Estimated GFR POC Glucose 212 H 146 H Random Glucose Calcium Magnesium Total Bilirubin AST ALT Alkaline Phosphatase Total Protein Albumin Urine Color Urine Appearance Urine pH Ur Specific [place] Urine Protein Urine Glucose (UA) Urine Ketones Urine Blood Urine Nitrite Ur Leukocyte Esterase Urine RBC Urine WBC Ur Squamous Epith Cells Urine Bacteria COVID-19 ([facility]ICK) Negative COVID-19 BenchPrep Com See Note 12/05/21 12/06/21 12/06/21 23:46 05:45 05:45 WBC 4.9 RBC 3.85 L Hgb 12.0 L Hct 35.5 L MCV 92.2 MCH 31.2 MCHC 33.8 RDW 12.6 Plt Count 151 L MPV 10.8 Immature Gran % (Auto) 0.4 Neut % (Auto) 66.4 Lymph % (Auto) 17.[address] % (Auto) 7.8 Eos % (Auto) 7.2 H Baso % (Auto) 0.6 Lymph # (Auto) 0.[address] [place] # (Auto) 0.4 Eos # (Auto) 0.4 Baso # (Auto) 0.0 Abs Immat Gran (auto) 0.02 Absolute Neuts (auto) 3.2 Absolute Nucleated RBC 0.000 Nucleated RBC % (auto) 0.0 Sodium 142 Potassium 6.1 H* Chloride 108 Carbon Dioxide 26 Anion Gap 14 BUN 38 H Creatinine 1.77 H Estim Creat Clear Calc 27.2 Estimated GFR 37 POC Glucose 238 H Random Glucose 151 H D Calcium 9.6 Magnesium Total Bilirubin AST ALT Alkaline Phosphatase Total Protein Albumin Urine Color Urine Appearance Urine pH Ur Specific [place] Urine Protein Urine Glucose (UA) Urine Ketones Urine Blood Urine Nitrite Ur Leukocyte Esterase Urine RBC Urine WBC Ur Squamous Epith Cells Urine Bacteria COVID-19 ([facility]ICK) COVID-19 BenchPrep Com 12/06/21 12/06/21 07:15 10:08 WBC RBC Hgb Hct MCV MCH MCHC RDW Plt Count MPV Immature Gran % (Auto) Neut % (Auto) Lymph % (Auto) [facility] % (Auto) Eos % (Auto) Baso % (Auto) Lymph # (Auto) [facility] # (Auto) Eos # (Auto) Baso # (Auto) Abs Immat Gran (auto) Absolute Neuts (auto) Absolute Nucleated RBC Nucleated RBC % (auto) Sodium Potassium 5.6 H Chloride Carbon Dioxide Anion Gap BUN Creatinine Estim Creat Clear Calc Estimated GFR POC Glucose 135 H Random Glucose Calcium Magnesium Total Bilirubin AST ALT Alkaline Phosphatase Total Protein Albumin Urine Color Urine Appearance Urine pH Ur Specific [place] Urine Protein Urine Glucose (UA) Urine Ketones Urine Blood Urine Nitrite Ur Leukocyte Esterase Urine RBC Urine WBC Ur Squamous Epith Cells Urine Bacteria COVID-19 ([facility]ICK) COVID-19 Clin Com <Starr Roldan NP - Last Filed: 12/07/21 16:06> Discharge Plan Discharge Anticipated Discharge Date/Time: 12/06/21 13:02 <Starr Roldan NP - Last Filed: 12/07/21 16:06> Patient Disposition: Home, Self-Care <Starr Roldan NP - Last Filed: 12/07/21 16:06> Discharge Diagnosis: CKD stage 4 Acute on chronic hypernatremia <Starr Roldan NP - Last Filed: 12/07/21 16:06> Referrals: Beny Berrios MD [Primary Care Provider] - 1 Week Maxi Griffiths MD [Physician] - 1 Week <Starr Roldan NP - Last Filed: 12/07/21 16:06> Discharge Medications: New Lokelma 10 gram powder in packet 10 g PO DAILY Qty: 30 0RF Rx Instructions: take 10 grams daily for seven days then take 10 grams three times a week Continued metformin 500 mg tablet 1 tab PO BID@0900,1700 0RF carvedilol 6.25 mg tablet 1 tab PO BID 0RF glipizide 10 mg tablet 1 tab PO BID@0900,1700 0RF amlodipine 5 mg tablet 1 tab PO DAILY 0RF simvastatin 40 mg tablet 1 tab PO BEDTIME 0RF tamsulosin 0.4 mg capsule 1 cap PO BEDTIME 0RF omeprazole 20 mg Capsule,Delayed Release(Dr/Ec) 20 mg PO DAILY@0630 PRN (Reason: Acid Reflux) 0RF [id number] 3.5-10,000-1 mg/mL-unit/mL-% drops,suspension 4 drp otic (ears) QID 0RF Rx Instructions: PT HAS 3 DAYS LEFT (12/06,12/07,12/08) cholecalciferol (vitamin D3) 25 mcg (1,000 unit) Tablet 25 mcg PO DAILY 0RF <Starr Roldan NP - Last Filed: 12/07/21 16:06> Discharge Orders: Discharge Order (Routine); Ordered 12/06/21 Ordered By: Starr Roldan <Starr Roldan NP - Last Filed: 12/07/21 16:06> Diet: advance to usual diet <Starr Roldan NP - Last Filed: 12/07/21 16:06> Activity on Discharge: As tolerated <Starr Roldan NP - Last Filed: 12/07/21 16:06> Stand Alone Forms: Patient Portal Discharge page <Starr Roldan NP - Last Filed: 12/07/21 16:06> Care Plan Goals: resolution of hyperkalemia <Starr Roldan NP - Last Filed: 12/07/21 16:06> Health Concerns: CKD stage 4 Acute on chronic hypernatremia <Starr Roldan NP - Last Filed: 12/07/21 16:06> Plan of Treatment: Take medications as prescribed Follow-up with primary care as needed Follow-up with the smoke room operator You have been started on a medication called Lokelma. You will take 10 g daily for 7 days then 10 g 3 times a week. Please follow a 2 g potassium diet <Starr Roldan NP - Last Filed: 12/07/21 16:06> Assessment: see discharge summary <Starr Roldan NP - Last Filed: 12/07/21 16:06> Discharge Date/Time: 12/06/21 14:33 <Starr Roldan NP - Last Filed: 12/07/21 16:06>
[2021-12-06 13:23] LABS: Glucose, Whole Blood 175 mg/dL (60-115)
--- NOTE | 2021-12-06 13:25 | MHC.CM.PN ---
Patient has been medically cleared for dc to home today, self care.
== END 2021-12-06 14:33 | disposition home or self-care (01) ==
LOC: HO.ED 14:52 → HO.EDOVER 18:18
PROVIDERS: Admitting Provider Internal Medicine; Emergency Provider Emergency Medicine; PCP Internal Medicine; Visit Provider Nurse Practitioner Acute Care
DX: E87.5 Hyperkalemia (principal); N18.4 Chronic kidney disease, stage 4 (severe); E87.0 Hyperosmolality and hypernatremia; E11.9 Type 2 diabetes mellitus without complications; I10 Essential (primary) hypertension; E78.00 Pure hypercholesterolemia, unspecified; J30.81 Allergic rhinitis due to animal (cat) (dog) hair and dander; J30.2 Other seasonal allergic rhinitis; Z20.822 Contact with and (suspected) exposure to COVID-19; Z79.4 Long term (current) use of insulin; Z79.899 Other long term (current) drug therapy
CPT/HCPCS: 36415; 80048; 80053; 80061; 81001; 81003; 82043; 82947; 83036; 83735; 84132; 84153; 85025; 87635; 93005; 94640; 96365; 96375; 96376; 99219; 99284; 99285; J0610

== ENCOUNTER 2021-12-14 16:33 | Outpatient (REF) | payer MEDICARE, BC, SELFPAY ==
[2021-12-14 17:56] LABS: Anion Gap 15 (12-20); Blood Urea Nitrogen 37 mg/dL (9-16); Calcium 9.7 mg/dL (8.4-10.2); Carbon Dioxide 25 mmol/L (22-29); Chloride 104 mmol/L (96-108); Estimated Glomerular Filt Rate 34; Potassium 5.1 mmol/L (3.3-5.1); Sodium 139 mmol/L (135-145)
== END 2021-12-14 16:34 | disposition home or self-care (01) ==
LOC: HO.LAB 16:33
PROVIDERS: PCP Internal Medicine; Visit Provider Internal Medicine Nephrology
DX: E87.5 Hyperkalemia (principal)
CPT/HCPCS: 36415; 80051; 82310; 82565; 84520

== ENCOUNTER 2022-01-26 06:47 | Outpatient (REF) | payer MEDICARE, BC, SELFPAY ==
[2022-01-26 11:40] LABS: Anion Gap 16 (12-20); Blood Urea Nitrogen 41 mg/dL (9-16); Calcium 9.5 mg/dL (8.4-10.2); Carbon Dioxide 22 mmol/L (22-29); Chloride 106 mmol/L (96-108); Estimated Glomerular Filt Rate 31; Glucose Fasting 238 mg/dL (60-99); Potassium 4.8 mmol/L (3.3-5.1); Sodium 139 mmol/L (135-145)
[2022-01-26 11:41] LABS: Anion Gap 15 (12-20); Blood Urea Nitrogen 40 mg/dL (9-16); Calcium 9.5 mg/dL (8.4-10.2); Carbon Dioxide 23 mmol/L (22-29); Chloride 107 mmol/L (96-108); Estimated Glomerular Filt Rate 31; Potassium 5.1 mmol/L (3.3-5.1); Sodium 140 mmol/L (135-145)
[2022-01-26 11:48] LABS: Estimated Average Glucose 232 mg/dL; Hemoglobin A1c % 9.7 %
== END 2022-01-26 06:48 | disposition home or self-care (01) ==
LOC: HO.HMGCLDS 06:47
PROVIDERS: PCP Internal Medicine; Visit Provider Internal Medicine Nephrology
DX: E87.5 Hyperkalemia (principal); I12.9 Hypertensive chronic kidney disease with stage 1 through stage 4 chronic kidney disease, or unspecified chronic kidney disease; E11.22 Type 2 diabetes mellitus with diabetic chronic kidney disease; N18.9 Chronic kidney disease, unspecified
CPT/HCPCS: 36415; 80048; 80051; 82310; 82565; 83036; 84520

== ENCOUNTER 2022-03-23 11:42 | Outpatient (REF) | payer MEDICARE, BC, SELFPAY ==
[2022-03-23 14:00] LABS: Estimated Average Glucose 243 mg/dL; Hemoglobin A1c % 10.1 %
[2022-03-23 14:08] LABS: Anion Gap 15 (12-20); Blood Urea Nitrogen 41 mg/dL (9-16); Calcium 9.1 mg/dL (8.4-10.2); Carbon Dioxide 23 mmol/L (22-29); Chloride 103 mmol/L (96-108); Estimated Glomerular Filt Rate 31; Glucose Random 267 mg/dL (60-115); Potassium 5.1 mmol/L (3.3-5.1); Sodium 136 mmol/L (135-145)
== END 2022-03-23 11:43 | disposition home or self-care (01) ==
LOC: HO.10HDL 11:42
PROVIDERS: Visit Provider Internal Medicine
DX: I12.9 Hypertensive chronic kidney disease with stage 1 through stage 4 chronic kidney disease, or unspecified chronic kidney disease (principal); N18.9 Chronic kidney disease, unspecified; E11.22 Type 2 diabetes mellitus with diabetic chronic kidney disease
CPT/HCPCS: 36415; 80048; 83036

== ENCOUNTER 2022-06-28 09:40 | Outpatient (REF) | payer MEDICARE, BC, SELFPAY ==
[2022-06-28 10:47] LABS: Estimated Average Glucose 258 mg/dL; Hemoglobin A1c % 10.6 %
[2022-06-28 10:52] LABS: Alanine Aminotransferase 18 U/L (0-40); Albumin Level 4.5 g/dL (3.5-5.0); Alkaline Phosphatase 71 U/L (39-117); Anion Gap 19 (12-20); Aspartate Amino Transferase 14 U/L (5-37); Bilirubin Total 0.5 mg/dL (0.0-1.0); Blood Urea Nitrogen 40 mg/dL (9-16); Calcium 9.5 mg/dL (8.4-10.2); Carbon Dioxide 20 mmol/L (22-29); Chloride 107 mmol/L (96-108); Estimated Glomerular Filt Rate 34; Glucose Random 188 mg/dL (60-115); Potassium 5.8 mmol/L (3.3-5.1); Sodium 140 mmol/L (135-145); Total Protein 7.2 g/dL (6.5-8.0)
[2022-06-28 11:09] LABS: Microalbum/Creatinine Ratio Ur 165.3 ug/mg cr
== END 2022-06-28 09:41 | disposition home or self-care (01) ==
LOC: HO.10HDL 09:40
PROVIDERS: Visit Provider Internal Medicine
DX: I12.9 Hypertensive chronic kidney disease with stage 1 through stage 4 chronic kidney disease, or unspecified chronic kidney disease (principal); E11.22 Type 2 diabetes mellitus with diabetic chronic kidney disease; N18.9 Chronic kidney disease, unspecified
CPT/HCPCS: 36415; 80053; 82043; 83036

== ENCOUNTER 2022-09-20 14:33 | Outpatient (REF) | payer MEDICARE, BC, SELFPAY ==
[2022-09-20 16:13] LABS: Estimated Average Glucose 237 mg/dL; Hemoglobin A1c % 9.9 %
[2022-09-20 16:41] LABS: Anion Gap 14 (12-20); Blood Urea Nitrogen 46 mg/dL (9-16); Calcium 9.3 mg/dL (8.4-10.2); Carbon Dioxide 23 mmol/L (22-29); Chloride 105 mmol/L (96-108); Estimated Glomerular Filt Rate 32; Potassium 5.1 mmol/L (3.3-5.1); Sodium 137 mmol/L (135-145)
== END 2022-09-20 14:34 | disposition home or self-care (01) ==
LOC: HO.LAB 14:33
PROVIDERS: PCP Internal Medicine; Visit Provider Internal Medicine Nephrology
DX: Z13.89 Encounter for screening for other disorder (principal)
CPT/HCPCS: 36415; 80051; 82310; 82565; 83036; 84520

== ENCOUNTER 2022-10-30 10:27 | Inpatient (IN) | payer MEDICARE, BC, SELFPAY ==
[2022-10-30] VITALS (10 sets, daily range): BP systolic 112–160; BP diastolic 59–91; PULSE 85–104; RESP 15–25; TEMP 36.4–37; O2SAT 96–99; BMI 19.0; BMI 17.7
--- NOTE | ~2022-10-30 | XR_ITS ---
EXAMINATION: XR CHEST CLINICAL INFORMATION: Chest pain. COMPARISON: March 14, 2017. TECHNIQUE: Portable AP view of the chest was obtained. XR/XR chest 1V FINDINGS/IMPRESSION: There has been no significant radiographic change compared with March 14, 2017. No infiltrate, effusion, pneumothorax is seen. Minimal blunting of left costophrenic angle appears unchanged. There may be bone islands, pleural calcification, and/or calcified granulomata at the left lung base, unchanged. The heart appears normal in size. The mediastinum and soft tissues appear unremarkable. Orthopedic anchor screws project over the left humeral head. There are degenerative changes of the left glenohumeral joint.
--- NOTE | 2022-10-30 10:28 | ECG_ITS ---
Test Reason : chest pain Blood Pressure : / mmHG Vent. Rate : 109 BPM Atrial Rate : 109 BPM P-R Int : 146 ms QRS Dur : 068 ms QT Int : 308 ms P-R-T Axes : 081 019 006 degrees QTc Int : 414 ms Sinus tachycardia Septal infarct , age undetermined ST & T wave abnormality, consider lateral ischemia Abnormal ECG When compared with ECG of 05-DEC-2021 14:16, Septal infarct is now Present ST now depressed in Inferior leads T wave inversion now evident in Lateral leads Referred By: Generic ED Physician Electronically Signed By:CHRIS CELESTIN MD
--- NOTE | 2022-10-30 10:43 | ED_ITS ---
HPI - Chest Pain General Chief Complaint: Chest Pain Stated Complaint: Chest pain Time Seen by Provider: 10/30/22 10:41 Source: patient Mode of arrival: ambulatory Limitations: no limitations History of Present Illness HPI narrative: 4 days of intermittent chest tightness lasting 30 minutes. Last night had it bad at midnight took an omeprazole which got him better but then came on again at 4am. complaint: chest heaviness Onset (ago): day(s) Timing of current episode: episodic Onset: during rest and during exertion Pain location: substernal Treatment prior to arrival: none Risk Factors Coronary artery disease risk factors: diabetes, hyperlipidemia and hypertension Related Data Home Medications Medication Instructions Recorded Confirmed amlodipine 5 mg tablet 1 tab PO DAILY@0400 12/05/21 10/30/22 carvedilol 6.25 mg tablet 1 tab PO BID@0400,1600 12/05/21 10/30/22 cholecalciferol (vitamin D3) 25 25 mcg PO DAILY@0400 12/05/21 10/30/22 mcg (1,000 unit) tablet glipizide 10 mg tablet 1 tab PO BID@0400,1600 12/05/21 10/30/22 simvastatin 40 mg tablet 1 tab PO DAILY@1600 12/05/21 10/30/22 tamsulosin 0.4 mg capsule 1 cap PO BEDTIME 12/05/21 10/30/22 dapagliflozin 10 mg tablet 1 tab PO DAILY 10/30/22 10/30/22 (Farxiga) sodium zirconium cyclosilicate 10 10 g PO SUTUTH 10/30/22 10/30/22 gram oral powder packet (kelks) Previous Rx's Medication Instructions Recorded heparin (porcine) 25,000 unit/250 25,000 unit (250 mL) continuous IV 10/30/22 mL in 0.45 % sodium chloride IV infusion .Q0M #6,000 mL soln heparin (porcine) 5,000 unit/mL 2,100 unit (0.42 mL) IVPUSH 10/30/22 injection solution PROTOCOL BOLUS PRN 40 Unit/Kg - Heparin Protocol #25 mL heparin (porcine) 5,000 unit/mL 4,200 unit (0.84 mL) IVPUSH 10/30/22 injection solution PROTOCOL BOLUS PRN 80 Unit/Kg - Heparin Protocol #25 mL ondansetron HCl (PF) 4 mg/2 mL 4 mg (2 mL) IVPUSH Q8H PRN Nausea 10/30/22 injection solution And Vomiting #10 mL Allergies Allergy/AdvReac Type Severity Reaction Status Date / Time dogs and cats Allergy Unknown Uncoded 02/20/17 00:00 year round seasonal Allergy Unknown Uncoded 02/20/17 00:00 Review of Systems Review of Systems: Yes all other systems are reviewed and are negative Cardiovascular: Cardiovascular: Reports chest pain Neurologic: Denies Sensory deficit (Neuro) [facility] Past Medical History Medical History Chronic kidney insufficiency Diabetes Hyperkalemia Social History Social History Alcohol intake: never Smoked in Last 30 Days: No Use of substances other than those prescribed or required for medical reasons: No Advance Directives: No Advance Directives Information Provided: Yes service: No Current occupational status: retired Physical Exam Vital Signs: Vital Signs: Last Vital Signs Temp 98.2 F 10/30/22 11:09 Pulse 94 10/30/22 13:57 Resp 18 10/30/22 13:57 BP 127/73 10/30/22 13:57 Pulse Ox 98 10/30/22 13:57 O2 Del Method 10/30/22 13:57 BMI result Body Mass Index 17.7 Const: General: healthy appearing Nutritional Appearance: average body habitus Orientation/consciousness: oriented to person and patient oriented x3 Limitations: no limitations HEENT: Head: Yes normal to inspection Ears: external ears normal General nose exam: Normal external nose present Mouth: Normal oral and palatal mucosa present and oropharynx normal Throat: Yes posterior oropharynx normal Eyes: General: appearance normal, both eyes and all related structures Neck: Other: supple Neck: Yes normal visual inspection Chest: Chest palpation & inspection: normal inspection of the chest Resp: Auscultation: clear to auscultation bilaterally Cardio: Jugular venous distension: no JVD Rate: regular rate Rhythm: regular rhythm Heart sounds: S1 normal heart sound present and S2 normal heart sound present GI: Inspection: Yes normal to inspection Palpation (GI): Soft to palpation, nontender and No hepatosplenomegaly present Auscultation: normal bowel sounds : General: Yes no CVA tenderness Back/Spine/Pelvis: Back: no CVA tenderness Skin: General skin exam: no rashes or lesions noted Neuro: General: oriented to person and patient oriented x3 Cranial nerves: Yes CN's II-XII intact bilaterally Motor exam (neuro): 5/5 motor strength present throughout Sensory Exam: No Sensory deficit (Neuro) Extrem: General: Yes normal to inspection Psych: Appearance: grossly normal Course Reevaluation(s) Reevaluation #1: I spent 40 minutes of critical care, with interventions, assessments, speaking to patient, consultants, and family. Time: 12:32 Reevaluation #2: patient with elevated troponins, discussed plan in detail with dr. Brown Time: 15:02 Medications Administered Generic Name Dose Route Start Last Admin Trade Name Freq PRN Reason Stop Dose Admin Heparin Sodium/Sodium Chloride 25,000 unit in 250 mls @ 0 mls/hr 10/30/22 12:45 10/30/22 13:55 Heparin Sodium,Porcine/1/2ns IVCONT 14 units/kg/hr .Q0M ZELDA 7.42 mls/hr Administration Protocol Per Protocol Nitroglycerin 0.4 mg 10/30/22 10:43 10/30/22 11:12 Nitroglycerin 0.4 Mg Tab.Subl SUBLINGUAL 0.4 mg [id number] PRN Administration Chest Pain Discontinued Medications Generic Name Dose Route Start Last Admin Trade Name Freq PRN Reason Stop Dose Admin Aspirin 325 mg 10/30/22 10:43 10/30/22 11:12 Aspirin Enteric Coated 325 Mg Tablet.Dr RAO 10/30/22 10:44 325 mg ONCE ONE Administration Heparin Sodium (Porcine) 4,500 unit 10/30/22 12:21 10/30/22 13:44 Heparin Sodium,Porcine 5,000 Unit/Ml Vial 80 unit/kg (4500 unit) 10/30/22 12:22 4,500 unit IVPUSH Administration ONCE ONE Nitroglycerin 1 inch 10/30/22 12:14 10/30/22 13:41 Nitroglycerin 2 % Oint 1 Gm Packet TRANSDERMA 10/30/22 12:15 1 inch ONCE ONE Administration Medical Decision Making Differential Diagnosis Differential Diagnoses: The differential diagnosis associated with the presentation includes (Acute AL, cardiac ischemia, GI distress, PE) patient with cardiac ischemia Admission/Observation Consideration of admission/observation: Escalation of care including admission/observation considered (Upon arrival this 82 yo male with HTN, DM, high cholesterol was considered for admission) Consult Healthcare Provider Management of the patient was discussed with: Hospitalist and Photocopier Technician (Dr. Brown, cardiology) Lab Data MDM Lab Attestation statement: I reviewed the patient's lab results. 10/30/22 10:59 10/30/22 10:59 Labs: Lab Results 10/30/22 10/30/22 10/30/22 Range/Units 10:59 10:59 10:59 WBC 6.7 (4.8-10.8) X10*3/uL RBC 4.79 D (4.60-5.80) X10*6/uL Hgb 14.9 D (14.0-18.0) g/dl Hct 43.5 D (42.0-52.0) % MCV 90.8 (80.0-98.0) fL MCH 31.1 (27.0-33.0) pg MCHC 34.3 (31.0-36.0) g/dl RDW 12.6 (11.0-16.0) % Plt Count 183 (160-400) X10*3/uL MPV 10.4 (9.4-12.4) fL Immature Gran % (Auto) 0.7 H (0.0-0.4) % Neut % (Auto) 72.6 (45-73) % Lymph % (Auto) 14.8 L (20-40) % [place] % (Auto) 7.0 (2-11) % Eos % (Auto) 4.2 H (0-4) % Baso % (Auto) 0.7 (0-2) % Lymph # (Auto) 1.0 L (1.2-4.9) X10*3/uL [place] # (Auto) 0.5 (0.1-1.2) X10*3/uL Eos # (Auto) 0.3 (0.0-0.4) X10*3/uL Baso # (Auto) 0.1 (0.0-0.2) X10*3/uL Abs Immat Gran (auto) 0.05 H (0.00-0.03) X10*3/uL Absolute Neuts (auto) 4.9 (2.0-8.3) x10*3/uL Absolute Nucleated RBC 0.000 (0.0-0.012) X10*3/uL Nucleated RBC % (auto) 0.0 (0.0-0.2) /100WBC PT (10.0-13.1) SEC INR (0.9-1.1) aPTT Heparin Protocol (53-77.9) SEC Sodium (135-145) mmol/L Potassium (3.3-5.1) mmol/L Chloride (96-108) mmol/L Carbon Dioxide (22-29) mmol/L Anion Gap (12-20) BUN (9-16) mg/dL Creatinine (0.5-1.4) mg/dL Estim Creat Clear Calc Estimated GFR Random Glucose (60-115) mg/dL Calcium (8.4-10.2) mg/dL Troponin I High Sens 163.0 H* (<3.5-35.0) ng/L COVID-19 ([facility]RICK) Negative (Negative) COVID-19 Clin Com See Note 10/30/22 10/30/22 10/30/22 Range/Units 12:39 12:39 12:40 WBC (4.8-10.8) X10*3/uL RBC (4.60-5.80) X10*6/uL Hgb (14.0-18.0) g/dl Hct (42.0-52.0) % MCV (80.0-98.0) fL MCH (27.0-33.0) pg MCHC (31.0-36.0) g/dl RDW (11.0-16.0) % Plt Count (160-400) X10*3/uL MPV (9.4-12.4) fL Immature Gran % (Auto) (0.0-0.4) % Neut % (Auto) (45-73) % Lymph % (Auto) (20-40) % [place] % (Auto) (2-11) % Eos % (Auto) (0-4) % Baso % (Auto) (0-2) % Lymph # (Auto) (1.2-4.9) X10*3/uL [place] # (Auto) (0.1-1.2) X10*3/uL Eos # (Auto) (0.0-0.4) X10*3/uL Baso # (Auto) (0.0-0.2) X10*3/uL Abs Immat Gran (auto) (0.00-0.03) X10*3/uL Absolute Neuts (auto) (2.0-8.3) x10*3/uL Absolute Nucleated RBC (0.0-0.012) X10*3/uL Nucleated RBC % (auto) (0.0-0.2) /100WBC PT 11.7 (10.0-13.1) SEC INR 1.0 (0.9-1.1) aPTT Heparin Protocol 35.0 L (53-77.9) SEC Sodium 140 (135-145) mmol/L Potassium 5.3 H (3.3-5.1) mmol/L Chloride 106 (96-108) mmol/L Carbon Dioxide 21 L (22-29) mmol/L Anion Gap 18 (12-20) BUN 39 H (9-16) mg/dL Creatinine 1.65 H (0.5-1.4) mg/dL Estim Creat Clear Calc 26.3 Estimated GFR 40 Random Glucose 172 H (60-115) mg/dL Calcium 9.4 (8.4-10.2) mg/dL Troponin I High Sens 406.7 H* D (<3.5-35.0) ng/L COVID-19 (KENRICK) (Negative) COVID-19 Clin Com Independent Interpretation I performed an independent interpretation of an: EKG (sinus tachycardia, Qs V1and V2, St depression II, III, and AVF and V4-V6) and Plain X-Ray (CXR no infiltrate) Independent Historian Clinical information obtained from an independent historian. History obtained from or confirmed by: Other (son and grandson) Discharge Plan Discharge Clinical Impression: Acute coronary syndrome, Elevated troponin Patient Disposition: Admitted As Inpatient
[2022-10-30 11:04] LABS: MANUAL DIFF FLAG NO
[2022-10-30 11:09] LABS: Basophils Absolute Auto 0.1 X10*3/uL (0.0-0.2); Basophils Percent Auto 0.7 % (0-2); Eosinophils Absolute Auto 0.3 X10*3/uL (0.0-0.4); Eosinophils Percent Auto 4.2 % (0-4); Hematocrit 43.5 % (42.0-52.0); Hemoglobin 14.9 g/dl (14.0-18.0); Imm Gran Abs Auto 0.05 X10*3/uL (0.00-0.03); Imm Gran Pct Auto 0.7 % (0.0-0.4); Lymphocytes Percent Auto 14.8 % (20-40); Mean Corpuscular HGB Conc 34.3 g/dl (31.0-36.0); Mean Corpuscular Hemoglobin 31.1 pg (27.0-33.0); Mean Corpuscular Volume 90.8 fL (80.0-98.0); Mean Platelet Volume 10.4 fL (9.4-12.4); Monocytes Absolute Auto 0.5 X10*3/uL (0.1-1.2); Neutrophils Absolute Auto 4.9 x10*3/uL (2.0-8.3); Neutrophils Percent Auto 72.6 % (45-73); Platelet Count 183 X10*3/uL (160-400); Red Blood Count 4.79 X10*6/uL (4.60-5.80); Red Cell Distribution Width 12.6 % (11.0-16.0); White Blood Count 6.7 X10*3/uL (4.8-10.8)
[2022-10-30] MEDS: Nitroglycerin 0.4 MG TAB.SUBL SUBLINGUAL (11:12)
[2022-10-30] MEDS: Aspirin Enteric Coated 325 MG TABLET.DR PO (11:12)
--- NOTE | 2022-10-30 11:14 | PC.NURSE ---
pt AOx3, heart rate slightly elevated, vss otherwise stable. EKG done, child monitor on. Labs drawn. IV inserted. Awaiting lab results.
[2022-10-30 11:25] LABS: COVID-19 Test Negative (Negative); IDNOW Serial# BCCEAD1C
--- NOTE | 2022-10-30 12:14 | ECG_ITS ---
Test Reason : CARDIA ISCHEMIA Blood Pressure : / mmHG Vent. Rate : 087 BPM Atrial Rate : 087 BPM P-R Int : 152 ms QRS Dur : 074 ms QT Int : 360 ms P-R-T Axes : 064 026 080 degrees QTc Int : 433 ms Normal sinus rhythm ST & T wave abnormality, consider anterior ischemia Abnormal ECG When compared with ECG of 30-OCT-2022 10:33, ST no longer depressed in Inferior leads Non-specific change in ST segment in Anterior leads T wave inversion now evident in Anterior leads Referred By: Joseph Steen Electronically Signed By:CHRIS CELESTIN MD
--- NOTE | 2022-10-30 13:06 | P.CONCA_ITS ---
History of Present Illness History of Present Illness Date of Service: 10/30/22 Requesting physician: Joseph Steen Consult reason: other (Acute coronary syndrome) Chief complaint: Chest pain Narrative: I was requested to see Mango in cardiology consultation today for acute onset chest pain. Patient is 82-year-old male with prior history of diabetes, irregular heartbeat, hypertension, chronic kidney disease. Patient has been having intermittent episodes of retrosternal chest heaviness for the last 4 days. Symptoms not always exertional nature. This morning at around 00:00 he developed severe chest discomfort which she describes as pain. He thought this is acid reflux related discomfort in to go omeprazole and then started to do sit-ups. Pain then somewhat subsided. Subsequently woke up at 04:00 with more severe chest discomfort came to the emergency room. Initial EKG in the emergency room shows ST sagging in the inferior and lateral leads. First troponins 163. Creatinine is stable. Patient then got aspirin and sublingual nitroglycerin currently is completely chest pain-free. Patient denies any other recent complaints. Denies any prior cardiovascular history of myocardial infarction or CAD or vascular events Review of Systems Constitutional: Constitutional: Reports no additional constitutional complaints Eyes: Eyes: Reports no additional eye complaints Cardiovascular: Cardiovascular: Reports chest pain, Reports chest pain at rest, Denies leg edema, Denies lightheadedness, Denies Loss of Consciousness, Denies palpitations, Denies dyspnea on exertion and Denies orthopnea Respiratory: Respiratory: Reports no additional respiratory complaints and Denies dyspnea on exertion Gastrointestinal: Gastrointestinal: Reports no additional gastrointestinal complaints Genitourinary: Genitourinary: Reports no additional male genitourinary complaints Musculoskeletal: Musculoskeletal: Reports no additional musculoskeletal complaints Integumentary/Breasts: Skin/Breast: Reports system reviewed and no additional complaints, except as docu Neurologic: Reports system reviewed and no additional complaints, except as documented Psychiatric: Psychiatric: Reports no additional psychiatric complaints Endocrine: Endocrine: Reports no additional endocrine complaints and Denies palpitations PMFSH Past Medical History Medical History Chronic kidney insufficiency Diabetes Hyperkalemia Social History Social History Alcohol intake: never Smoked in Last 30 Days: No Use of substances other than those prescribed or required for medical reasons: No Advance Directives: No Advance Directives Information Provided: Yes service: No Current occupational status: retired Meds Allergies Allergy/AdvReac Type Severity Reaction Status Date / Time dogs and cats Allergy Unknown Uncoded 02/20/17 00:00 year round seasonal Allergy Unknown Uncoded 02/20/17 00:00 Active Medications: Current Medications Heparin Sodium (Porcine) (Heparin Sodium,Porcine 5,000 Unit/Ml Vial) 2,100 unit 40 unit/kg (2100 unit) IVPUSH PROTOCOL BOLUS PRN; Protocol PRN Reason: 40 unit/kg - Heparin Protocol Heparin Sodium (Porcine) (Heparin Sodium,Porcine 5,000 Unit/Ml Vial) 4,200 unit 80 unit/kg (4200 unit) IVPUSH PROTOCOL BOLUS PRN; Protocol PRN Reason: 80 unit/kg - Heparin Protocol Heparin Sodium/Sodium Chloride (Heparin Sodium,Porcine/1/2ns) 25,000 unit in 250 mls @ 0 mls/hr IVCONT .Q0M ZELDA; Protocol Nitroglycerin (Nitroglycerin 0.4 Mg Tab.Subl) 0.4 mg SUBLINGUAL Q5MX3 PRN PRN Reason: Chest Pain Last Admin: 10/30/22 11:12 Dose: 0.4 mg Pharmacy Consult (Consult Rx Perform Med Rec) 1 each MISCELLANE ONCE PRN PRN Reason: Consult order Home Medications Medication Instructions Recorded Confirmed Last Taken Type amlodipine 5 mg tablet 1 tab PO DAILY@0400 12/05/21 10/30/22 12/05/21 History carvedilol 6.25 mg tablet 1 tab PO BID@0400,1600 12/05/21 10/30/22 10/30/22 History cholecalciferol (vitamin D3) 25 25 mcg PO DAILY@0400 12/05/21 10/30/22 12/05/21 History mcg (1,000 unit) tablet glipizide 10 mg tablet 1 tab PO BID@0400,1600 12/05/21 10/30/22 12/05/21 History metformin 500 mg tablet 1 tab PO BID@0400,1600 12/05/21 10/30/22 12/05/21 History simvastatin 40 mg tablet 1 tab PO DAILY@1600 12/05/21 10/30/22 12/04/21 History tamsulosin 0.4 mg capsule 1 cap PO BEDTIME 12/05/21 10/30/22 12/04/21 History dapagliflozin 10 mg tablet 1 tab PO DAILY 10/30/22 10/30/22 10/30/22 History (Farxiga) sodium zirconium cyclosilicate 10 10 g PO SUTUTH 10/30/22 10/30/22 Unknown History gram oral powder packet ([place]) Physical Exam Vital Signs: Vital Signs: Last Vital Signs Temp 98.2 F 10/30/22 11:09 Pulse 93 10/30/22 12:34 Resp 16 10/30/22 12:34 BP 131/75 10/30/22 12:34 Pulse Ox 98 10/30/22 12:34 O2 Del Method 10/30/22 12:34 BMI result Body Mass Index 17.7 Const: General: cooperative, comfortable, no acute distress, well developed, alert and awake Nutritional Appearance: well nourished and thin Orientation/consciousness: patient oriented x3 Limitations: no limitations HEENT: Head: Yes normocephalic and Yes atraumatic Neck: Neck: Yes trachea midline and Yes no JVD Carotids: bruit on the left Resp: Effort & Inspection: normal respiratory effort Auscultation: clear to auscultation bilaterally Cardio: Jugular venous distension: no JVD Palpation: normal PMI Rate: regular rate Rhythm: regular rhythm Heart sounds: S1 normal heart sound present, S2 normal heart sound present, no click, no gallops, no murmurs and no rubs GI: Auscultation: normal bowel sounds Skin: General skin exam: no rashes or lesions noted Neuro: General: patient oriented x3 and no focal motor deficits Extrem: General: Yes no clubbing, cyanosis or edema Psych: Appearance: grossly normal Objective Labs and Meds 10/30/22 10:59 10/30/22 10:59 Lab results: Laboratory Results - last 24 hr 10/30/22 10/30/22 10/30/22 10:59 10:59 10:59 WBC 6.7 RBC 4.79 D Hgb 14.9 D Hct 43.5 D MCV 90.8 MCH 31.1 MCHC 34.3 RDW 12.6 Plt Count 183 MPV 10.4 Immature Gran % (Auto) 0.7 H Neut % (Auto) 72.6 Lymph % (Auto) 14.8 L [place] % (Auto) 7.0 Eos % (Auto) 4.2 H Baso % (Auto) 0.7 Lymph # (Auto) 1.0 L [place] # (Auto) 0.5 Eos # (Auto) 0.3 Baso # (Auto) 0.1 Abs Immat Gran (auto) 0.05 H Absolute Neuts (auto) 4.9 Absolute Nucleated RBC 0.000 Nucleated RBC % (auto) 0.0 Troponin I High Sens 163.0 H* COVID-19 (KENRICK) Negative COVID-19 Clin Com See Note EKG shows normal sinus rhythm with ST sagging inferior lateral leads Imaging Radiologist's impression: Impressions Chest X-Ray 10/30/22 11:38 FINDINGS/IMPRESSION: There has been no significant radiographic change compared with March 14, 2017. No infiltrate, effusion, pneumothorax is seen. Minimal blunting of left costophrenic angle appears unchanged. There may be bone islands, pleural calcification, and/or calcified granulomata at the left lung base, unchanged. The heart appears normal in size. The mediastinum and soft tissues appear unremarkable. Orthopedic anchor screws project over the left humeral head. There are degenerative changes of the left glenohumeral joint. Assessment and Plan (1) Acute coronary syndrome: Status: Acute Acute coronary syndrome with high risk features with elevated biomarkers as well as EKG changes along with high likelihood of underlying obstructive CAD with multiple risk factors with underlying chronic kidney disease. Management was discussed with the patient. Best management will be to do a cardiac love terization to evaluate for coronary anatomy. Given his chronic kidney disease at high risk for contrast induced nephropathy had renal failure. This was discussed with him as well. Will start him on IV heparin. He has been given aspirin. Continue statin therapy and continue beta-susan therapy and maximize beta-susan therapy. He is clinically currently stable. Arrangements are being made for him to be transferred to [facility] for cardiac catheterization. He understands and agrees the risks, benefits, alternatives to the procedure. Thank you for allowing me to partake in his care. Time Spent With Patient Time: Total time managing care of this patient today ____ minutes. Procedures Date of Service Date of Service: 10/30/22
--- NOTE | 2022-10-30 13:10 | PHA.MEDREC ---
Pharmacy Consult ? Medication Reconciliation Pharmacy has completed the medication reconciliation.
[2022-10-30 13:16] LABS: Prothrombin Time 11.7 SEC (10.0-13.1)
[2022-10-30 13:26] LABS: Anion Gap 18 (12-20); Blood Urea Nitrogen 39 mg/dL (9-16); Calcium 9.4 mg/dL (8.4-10.2); Carbon Dioxide 21 mmol/L (22-29); Chloride 106 mmol/L (96-108); Creatinine Clr Calc Pharmacy 26.3; Estimated Glomerular Filt Rate 40; Glucose Random 172 mg/dL (60-115); Potassium 5.3 mmol/L (3.3-5.1); Sodium 140 mmol/L (135-145)
[2022-10-30] MEDS: Nitroglycerin 2 % Oint 1 GM Packet 1 INCH TRANSDERMA (13:41)
[2022-10-30] MEDS: Heparin Sodium,Porcine 5,000 UNIT/ML VIAL 4500 UNIT IVPUSH (13:44)
[2022-10-30 13:46] LABS: Troponin-I High Sensitivity 406.7 ng/L (<3.5-35.0)
[2022-10-30] MEDS: Heparin Sodium,Porcine/1/2NS 25,000 UNIT/250 ML IV.SOLN 7.42 UNIT IVCONT (13:55)
--- NOTE | 2022-10-30 13:58 | PC.NURSE ---
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
--- NOTE | 2022-10-30 14:06 | PM.IMHP ---
History of Present Illness Date of Service: 10/30/22 Chief Complaint: Chest Pain 82-year-old male presents to the emergency room with intermittent chest heaviness retrosternal in nature for the last 4 days. Symptoms were not consistently secondary to exertion. Patient received aspirin/sublingual mitral and is pain-free current lay. Heparin drip initiated. Patient carries a history type 2 diabetes/hypertension/CKD 3 Review of Systems Review of Systems: Admits to chest pain retrosternal in nature Denies orthopnea/exertional dyspnea Denies lower extremity edema Denies fever chills denies nausea vomiting diarrhea PMFSH Medical History Chronic kidney insufficiency Diabetes Hyperkalemia Social History Alcohol intake: never Smoked in Last 30 Days: No Use of substances other than those prescribed or required for medical reasons: No Advance Directives: No Advance Directives Information Provided: Yes service: No Current occupational status: retired [employer] Allergies Allergy/AdvReac Type Severity Reaction Status Date / Time dogs and cats Allergy Unknown Uncoded 02/20/17 00:00 year round seasonal Allergy Unknown Uncoded 02/20/17 00:00 Active Medications: Current Medications Amlodipine Besylate (Amlodipine Besylate 5 Mg Tablet) 5 mg PO DAILY@0400 ZELDA; Protocol Carvedilol (Carvedilol 6.25 Mg Tablet) 6.25 mg PO BID@0400,1600 ZELDA; Protocol Glipizide (Glipizide 10 Mg Tablet) 10 mg PO BID@0400,1600 ZELDA Heparin Sodium (Porcine) (Heparin Sodium,Porcine 5,000 Unit/Ml Vial) 2,100 unit 40 unit/kg (2100 unit) IVPUSH PROTOCOL BOLUS PRN; Protocol PRN Reason: 40 unit/kg - Heparin Protocol Heparin Sodium (Porcine) (Heparin Sodium,Porcine 5,000 Unit/Ml Vial) 4,200 unit 80 unit/kg (4200 unit) IVPUSH PROTOCOL BOLUS PRN; Protocol PRN Reason: 80 unit/kg - Heparin Protocol Heparin Sodium/Sodium Chloride (Heparin Sodium,Porcine/1/2ns) 25,000 unit in 250 mls @ 0 mls/hr IVCONT .Q0M ZELDA; Protocol Last Admin: 10/30/22 13:55 Dose: 14 units/kg/hr, 7.42 mls/hr Nitroglycerin (Nitroglycerin 0.4 Mg Tab.Subl) 0.4 mg SUBLINGUAL Q5MX3 PRN PRN Reason: Chest Pain Last Admin: 10/30/22 11:12 Dose: 0.4 mg Non-Formulary Medication (Simvastatin) 1 tab PO DAILY@1600 [facility] Non-Formulary Medication (Dapagliflozin [Farxiga]) 1 tab PO DAILY [facility] Pharmacy Consult (Consult Rx Perform Med Rec) 1 each MISCELLANE ONCE PRN PRN Reason: Consult order Sodium Zirconium Cyclosilicate (Sodium Zirconium Cyclosilicate 10 Gm Powd.Pack) 10 [facility]m [facility] Tamsulosin HCl (Tamsulosin Hcl 0.4 Mg Capsule) 0.4 mg PO BEDTIME [facility] Vitamin D (Cholecalciferol (Vitamin D3) 25 Mcg Tablet) 25 mcg PO DAILY@0400 [facility] Home Medications Medication Instructions Recorded Confirmed Last Taken Type amlodipine 5 mg tablet 1 tab PO DAILY@0400 12/05/21 10/30/22 12/05/21 History carvedilol 6.25 mg tablet 1 tab PO BID@0400,1600 12/05/21 10/30/22 10/30/22 History cholecalciferol (vitamin D3) 25 25 mcg PO DAILY@0400 12/05/21 10/30/22 12/05/21 History mcg (1,000 unit) tablet glipizide 10 mg tablet 1 tab PO BID@0400,1600 12/05/21 10/30/22 12/05/21 History metformin 500 mg tablet 1 tab PO BID@0400,1600 12/05/21 10/30/22 12/05/21 History simvastatin 40 mg tablet 1 tab PO DAILY@1600 12/05/21 10/30/22 12/04/21 History tamsulosin 0.4 mg capsule 1 cap PO BEDTIME 12/05/21 10/30/22 12/04/21 History dapagliflozin 10 mg tablet 1 tab PO DAILY 10/30/22 10/30/22 10/30/22 History (Farxiga) sodium zirconium cyclosilicate 10 10 g PO SUTUTH 10/30/22 10/30/22 Unknown History gram oral powder packet (Lokelma) Physical Exam Vital Signs and Narrative: Vital Signs: Last Vital Signs Temp 98.2 F 10/30/22 11:09 Pulse 94 10/30/22 13:57 Resp 18 10/30/22 13:57 BP 127/73 10/30/22 13:57 Pulse Ox 98 10/30/22 13:57 O2 Del Method 10/30/22 13:57 BMI result Body Mass Index 17.7 Const: Other: Awake alert oriented x3 chest pain-free Neck: Other: No JVD Resp: Other: Clear to auscultation bilaterally no rales rhonchi or wheezes Cardio: Other: No S4; positive S1-S2; no S3 murmurs rubs or gallops GI: Other: Soft nontender nondistended normoactive bowel sounds Neuro: Other: Cranial nerves 2-12 grossly intact as tested. Motor 5/5 all extremities. Sensation intact. Cognition appropriate Extrem: Other: No edema bilaterally Results Labs 10/30/22 10:59 10/30/22 12:39 Labs: Laboratory Results - last 24 hr 10/30/22 10/30/22 10/30/22 10:59 10:59 10:59 MCV 90.8 MCH 31.1 MCHC 34.3 RDW 12.6 Plt Count 183 MPV 10.4 Immature Gran % (Auto) 0.7 H Neut % (Auto) 72.6 Lymph % (Auto) 14.8 L [place] % (Auto) 7.0 Eos % (Auto) 4.2 H Baso % (Auto) 0.7 Lymph # (Auto) 1.0 L [place] # (Auto) 0.5 Eos # (Auto) 0.3 Baso # (Auto) 0.1 Abs Immat Gran (auto) 0.05 H Absolute Neuts (auto) 4.9 Absolute Nucleated RBC 0.000 Nucleated RBC % (auto) 0.0 PT INR aPTT Heparin Protocol Anion Gap Estim Creat Clear Calc Estimated GFR Random Glucose Calcium Troponin I High Sens 163.0 H* COVID-19 (KENRICK) Negative COVID-19 Clin Com See Note 10/30/22 10/30/22 10/30/22 12:39 12:39 12:40 MCV MCH MCHC RDW Plt Count MPV Immature Gran % (Auto) Neut % (Auto) Lymph % (Auto) [place] % (Auto) Eos % (Auto) Baso % (Auto) Lymph # (Auto) [place] # (Auto) Eos # (Auto) Baso # (Auto) Abs Immat Gran (auto) Absolute Neuts (auto) Absolute Nucleated RBC Nucleated RBC % (auto) PT 11.7 INR 1.0 aPTT Heparin Protocol 35.0 L Anion Gap 18 Estim Creat Clear Calc 26.3 Estimated GFR 40 Random Glucose 172 H Calcium 9.4 Troponin I High Sens 406.7 H* D COVID-19 (KENRICK) COVID-19 Clin Com Imaging Radiologist's Impressions: Impressions Chest X-Ray 10/30/22 11:38 FINDINGS/IMPRESSION: There has been no significant radiographic change compared with March 14, 2017. No infiltrate, effusion, pneumothorax is seen. Minimal blunting of left costophrenic angle appears unchanged. There may be bone islands, pleural calcification, and/or calcified granulomata at the left lung base, unchanged. The heart appears normal in size. The mediastinum and soft tissues appear unremarkable. Orthopedic anchor screws project over the left humeral head. There are degenerative changes of the left glenohumeral joint. Assessment and Plan (1) Acute coronary syndrome: Status: Acute (2) CKD (chronic kidney disease) stage 4, GFR 15-29 ml/min: Status: Acute (3) DM type 2 (diabetes mellitus, type 2): Status: Acute Plan 82-year-old male with history of CKD 4/diabetes type 2/hypertension presents with 4 days of intermittent recurrent retrosternal chest pain. In the emergency room initial troponin 1632 hours later 406 1. ACS -admit to telemetry -heparin drip -continue aspirin/statin/beta-susan -discussed with Cardiology; transferred to [facility] for cardiac catheterization when bed available 2. Dm II -hold metformin pending catheterization -continue glyburide and Farxiga -cover with lispro correctional scale 3. CKD 4 -as above hold metformin pending catheterization -follow renals/divalents Full COde Heparin Patient will require 2 inpatient midnights to maintain heparin drip with ultimate transfer to [facility] for cardiac catheterization. This cannot be achieved a lesser acute facility Time Spent With Patient Time: Total time managing care of this patient today ____ minutes. Quality Stroke Does the patient have a stroke diagnosis?: No VTE Prior VTE?: No VTE Risk Level:: Medical - moderate - high VTE Device Contraindication: Treatment Not Indicated VTE Drug Contraindication: N/A - Med Ordered
--- NOTE | 2022-10-30 14:15 | PM.DS ---
DS: Providers Provider Date of Service: 10/31/22 Date of admission: 10/30/22 14:04 Date of discharge: 10/31/22 Primary care physician: Beny Berrios MD Consults: 10/30/22 12:33 Consult to Cardiology Stat Consulting Provider: Bro Brown Reason for consultation: cardiac ischemia Has provider been notified: Yes DS: Diagnosis Discharge Diagnosis (1) Acute coronary syndrome: Status: Acute (2) CKD (chronic kidney disease) stage 4, GFR 15-29 ml/min: Status: Acute (3) DM type 2 (diabetes mellitus, type 2): Status: Acute DS: Summary Hospital Course Hospital Course: Patient is 82-year-old male with prior history of diabetes, irregular heartbeat, hypertension, chronic kidney disease.? Patient has been having intermittent episodes of retrosternal chest heaviness for the last 4 days.? Symptoms not always exertional nature.? This morning at around 00:00 he developed severe chest discomfort which she describes as pain.? He thought this is acid reflux related discomfort in to go omeprazole and then started to do sit-ups.? Pain then somewhat subsided.? Subsequently woke up at 04:00 with more severe chest discomfort came to the emergency room.? Initial EKG in the emergency room shows ST sagging in the inferior and lateral leads.? First troponins 163.? Creatinine is stable.? Patient then got aspirin and sublingual nitroglycerin currently is completely chest pain-free.? Patient denies any other recent complaints.? Denies any prior cardiovascular history of myocardial infarction or CAD or vascular events [facility] Admitted to telemetry on heparin drip. Statin/aspirin/beta-blockade continued. Uneventful stay. Transferred to [facility] for cardiac catheterization Time Spent with Patient Time attestation: Total time managing care of this patient today ____ minutes. Discharge coordination time: Greater than 30 minutes Quality: Safe Use of Opioids Does Pt have an Active Cancer Diagnosis on the Problem List?: No Quality: Stroke Does the patient have a stroke diagnosis?: No Physical Exam Vital Signs: Vital Signs: Last Vital Signs Temp 98.2 F 10/30/22 11:09 Pulse 94 10/30/22 13:57 Resp 18 10/30/22 13:57 BP 127/73 10/30/22 13:57 Pulse Ox 98 10/30/22 13:57 O2 Del Method 10/30/22 13:57 BMI result Body Mass Index 17.7 Const: Other: Awake alert oriented x3 chest pain-free Neck: Other: No JVD Resp: Other: Clear to auscultation bilaterally no rales rhonchi or wheezes Cardio: Other: No S4; positive S1-S2; no S3 murmurs rubs or gallops GI: Other: Soft nontender nondistended normoactive bowel sounds Neuro: Other: Cranial nerves 2-12 grossly intact as tested. Motor 5/5 all extremities. Sensation intact. Cognition appropriate Extrem: Other: No edema bilaterally DS: Data Data Completed and Pending Labs on day of discharge: Laboratory Results - last 24 hr 10/30/22 10/30/22 10/30/22 10:59 10:59 10:59 WBC 6.7 RBC 4.79 D Hgb 14.9 D Hct 43.5 D MCV 90.8 MCH 31.1 MCHC 34.3 RDW 12.6 Plt Count 183 MPV 10.4 Immature Gran % (Auto) 0.7 H Neut % (Auto) 72.6 Lymph % (Auto) 14.8 L [place] % (Auto) 7.0 Eos % (Auto) 4.2 H Baso % (Auto) 0.7 Lymph # (Auto) 1.0 L [place] # (Auto) 0.5 Eos # (Auto) 0.3 Baso # (Auto) 0.1 Abs Immat Gran (auto) 0.05 H Absolute Neuts (auto) 4.9 Absolute Nucleated RBC 0.000 Nucleated RBC % (auto) 0.0 PT INR aPTT Heparin Protocol Sodium Potassium Chloride Carbon Dioxide Anion Gap BUN Creatinine Estim Creat Clear Calc Estimated GFR Random Glucose Calcium Troponin I High Sens 163.0 H* COVID-19 (KENRICK) Negative COVID-19 Clin Com See Note 10/30/22 10/30/22 10/30/22 12:39 12:39 12:40 WBC RBC Hgb Hct MCV MCH MCHC RDW Plt Count MPV Immature Gran % (Auto) Neut % (Auto) Lymph % (Auto) [place] % (Auto) Eos % (Auto) Baso % (Auto) Lymph # (Auto) [place] # (Auto) Eos # (Auto) Baso # (Auto) Abs Immat Gran (auto) Absolute Neuts (auto) Absolute Nucleated RBC Nucleated RBC % (auto) PT 11.7 INR 1.0 aPTT Heparin Protocol 35.0 L Sodium 140 Potassium 5.3 H Chloride 106 Carbon Dioxide 21 L Anion Gap 18 BUN 39 H Creatinine 1.65 H Estim Creat Clear Calc 26.3 Estimated GFR 40 Random Glucose 172 H Calcium 9.4 Troponin I High Sens 406.7 H* D COVID-19 (KENRICK) COVID-19 Clin Com Discharge Plan Discharge Anticipated Discharge Date/Time: 10/31/22 08:02 Patient Disposition: er [facility] Discharge Diagnosis: Acute coronary syndrome Referrals: Beny Berrios MD [Primary Care Provider] - 1 Week Discharge Medications: New heparin(porcine) in 0.45% NaCl 25,000 unit/250 mL Parenteral Solution 25,000 unit continuous IV infusion .Q0M Qty: 6000 0RF ondansetron HCl (PF) 4 mg/2 mL Solution 4 mg IVPUSH Q8H PRN (Reason: Nausea And Vomiting) Qty: 10 0RF heparin (porcine) 5,000 unit/mL Solution 2,100 unit IVPUSH PROTOCOL BOLUS PRN (Reason: 40 Unit/Kg - Heparin Protocol) Qty: 25 0RF heparin (porcine) 5,000 unit/mL Solution 4,200 unit IVPUSH PROTOCOL BOLUS PRN (Reason: 80 Unit/Kg - Heparin Protocol) Qty: 25 0RF Continued Farxiga 10 mg tablet 1 tab PO DAILY Lokelma 10 gram powder in packet 10 g PO SUTUTH Rx Instructions: take 10 grams daily for seven days then take 10 grams three times a week carvedilol 6.25 mg tablet 1 tab PO BID@0400,1600 glipizide 10 mg tablet 1 tab PO BID@0400,1600 amlodipine 5 mg tablet 1 tab PO DAILY@0400 simvastatin 40 mg tablet 1 tab PO DAILY@1600 tamsulosin 0.4 mg capsule 1 cap PO BEDTIME cholecalciferol (vitamin D3) 25 mcg (1,000 unit) Tablet 25 mcg PO DAILY@0400 Discontinued metformin 500 mg tablet 1 tab PO BID@0400,1600 No Action metformin 500 mg tablet 1 tab PO BID Discharge Orders: Discharge Order (Routine); Ordered 10/31/22 Ordered By: Luc Martin Diet: Advance to usual diet Activity on Discharge: As tolerated Stand Alone Forms: Patient Portal Discharge page Care Plan Goals: Continue heparin drip and other medicines Health Concerns: Notify nursing if any chest pain Plan of Treatment: Transfer to [facility] for cardiac catheterization Assessment: See discharge summary
[2022-10-30 14:17] LABS: Hematocrit 41.3 % (42.0-52.0); Hemoglobin 14.2 g/dl (14.0-18.0); Mean Corpuscular HGB Conc 34.4 g/dl (31.0-36.0); Mean Corpuscular Hemoglobin 30.7 pg (27.0-33.0); Mean Corpuscular Volume 89.2 fL (80.0-98.0); Mean Platelet Volume 10.4 fL (9.4-12.4); Platelet Count 178 X10*3/uL (160-400); Red Blood Count 4.63 X10*6/uL (4.60-5.80); Red Cell Distribution Width 12.6 % (11.0-16.0); White Blood Count 6.7 X10*3/uL (4.8-10.8)
--- NOTE | 2022-10-30 15:46 | PC.NURSE ---
called pharmacy for missing meds
[2022-10-30] MEDS: carvediloL 6.25 MG TABLET PO (16:45)
[2022-10-30] MEDS: glipiZIDE 10 MG TABLET PO (16:45)
[2022-10-30] MEDS: Atorvastatin Calcium 20 MG TABLET PO (16:46)
--- NOTE | 2022-10-30 17:03 | PC.NURSE ---
pt states he takes metformin 500 mg bid, this nurse called pharmacy and they were able to verify this and will add the medication.
[2022-10-30 18:12] LABS: COVID-19 Test Negative (Negative); IDNOW Serial# 9DB6401D
[2022-10-30 19:22] LABS: Glucose, Whole Blood 224 mg/dL (60-115)
[2022-10-30 20:44] LABS: Troponin-I High Sensitivity 2031.1 ng/L (<3.5-35.0)
--- NOTE | 2022-10-30 20:49 | PC.NURSE ---
lab called with increased trop, Dr. Almanza was notified, pt being transferred up to 477.
[2022-10-30 21:05] LABS: PTT Heparin Drip 166.2 SEC (53-77.9)
[2022-10-30 21:19] LABS: Glucose, Whole Blood 274 mg/dL (60-115)
--- NOTE | 2022-10-30 21:48 | PC.NURSE ---
Addendum entered by Luda García RN 10/30/22 23:40: 2250; ptt 64.9 Per protocol, heparin drip decreased and restarted at 10 units/kg/hr, 5.3 mls/hr. Next ptt lab at 0452. witnessed with secondary nurse. Original Note: 2109; patient arrived to room 477, lab notified with critical PTT of 166.2. Per protocol, heparin drip paused, ptt at 2212
[2022-10-30] MEDS: Insulin Lispro 100 UNIT/ML 3 ML VIAL SUBCUT (22:00)
[2022-10-30] MEDS: Tamsulosin HCL 0.4 MG CAPSULE PO (22:01)
[2022-10-30 22:33] LABS: PTT Heparin Drip 64.9 SEC (53-77.9)
[2022-10-30] MEDS: 0.9 % Sodium Chloride Flush 3 ML SYRINGE IVFLUSH (22:55)
[2022-10-30] MEDS: Acetaminophen 325 MG TABLET 650 MG PO (23:04)
[2022-10-31 03:40] VITALS: BP 116/67; PULSE 88; RESP 20; TEMP 37; O2SAT 98
[2022-10-31] MEDS: carvediloL 6.25 MG TABLET PO (03:49)
[2022-10-31] MEDS: Cholecalciferol (Vitamin D3) 25 MCG TABLET PO (03:49)
[2022-10-31] MEDS: glipiZIDE 10 MG TABLET PO (03:50)
[2022-10-31] MEDS: amLODIPine Besylate 5 MG TABLET PO (03:51)
[2022-10-31 04:45] LABS: Hematocrit 37.5 % (42.0-52.0); Mean Corpuscular HGB Conc 34.7 g/dl (31.0-36.0); Mean Corpuscular Hemoglobin 31.3 pg (27.0-33.0); Mean Corpuscular Volume 90.4 fL (80.0-98.0); Mean Platelet Volume 10.5 fL (9.4-12.4); Platelet Count 180 X10*3/uL (160-400); Red Blood Count 4.15 X10*6/uL (4.60-5.80); Red Cell Distribution Width 12.6 % (11.0-16.0); White Blood Count 6.2 X10*3/uL (4.8-10.8)
[2022-10-31 04:55] LABS: INTERNATIONAL NORM RATIO 1.1 (0.9-1.1); Prothrombin Time 12.2 SEC (10.0-13.1)
[2022-10-31 04:57] LABS: PTT Heparin Drip 57.2 SEC (53-77.9)
[2022-10-31 07:37] LABS: Glucose, Whole Blood 128 mg/dL (60-115)
[2022-10-31] MEDS: 0.9 % Sodium Chloride Flush 3 ML SYRINGE IVFLUSH (07:52)
[2022-10-31] MEDS: Sodium Zirconium Cyclosilicate 10 GM POWD.PACK PO (07:52)
[2022-10-31] MEDS: Empagliflozin 10 MG TABLET PO (07:56)
[2022-10-31 07:58] VITALS: BP 129/71; PULSE 80; RESP 20; TEMP 36.3; O2SAT 98
--- NOTE | 2022-10-31 08:41 | MHC.CM.PN ---
IMM 10/31/22 Male DX NSTEMI He lives with his . He is independent all functional mobility. DP [facility] via ALS for Cardiac cath. A HCP has been documented. The patient has receiced copies. It has been scanned into EMR. A copy has been sent with the patient to [facility].
--- NOTE | 2022-10-31 10:06 | PM.PNCARD ---
Subjective Subjective Date of Service: 10/31/22 Principal diagnosis: Acute coronary syndrome. Interval history: Patient has no recurrent chest pain at this point time. Troponin peaked at 1999. Creatinine is improved to 1.65. Patient is waiting for transfer to [facility] for cardiac catheterization. Blood pressure is stable. No ventricular arrhythmias overnight. Review of Systems Review of Systems Yes all other systems are reviewed and are negative Physical Exam Vital Signs: Last Vital Signs Temp 97.4 F 10/31/22 07:58 Pulse 80 10/31/22 07:58 Resp 20 10/31/22 07:58 BP 129/71 10/31/22 07:58 Pulse Ox 98 10/31/22 07:58 O2 Del Method 10/31/22 07:58 BMI result Body Mass Index 17.7 Const General: cooperative, comfortable, no acute distress, well developed, alert and awake Nutritional Appearance: well nourished and thin Orientation/consciousness: patient oriented x3 Limitations: no limitations Neck Neck: Yes trachea midline and Yes no JVD Carotids: bruit on the left Resp Effort & Inspection: normal respiratory effort Auscultation: clear to auscultation bilaterally Cardio Jugular venous distension: no JVD Palpation: normal PMI Rate: regular rate Rhythm: regular rhythm Heart sounds: S1 normal heart sound present, S2 normal heart sound present, no click, no gallops, no murmurs and no rubs GI Auscultation: normal bowel sounds Skin General skin exam: no rashes or lesions noted Neuro General: patient oriented x3 and no focal motor deficits Extrem General: Yes no clubbing, cyanosis or edema Psych Appearance: grossly normal Objective Labs and Meds 10/31/22 04:38 10/30/22 12:39 Lab results: Laboratory Results - last 24 hr 10/30/22 10/30/22 10/30/22 10:59 10:59 10:59 WBC 6.7 RBC 4.79 D Hgb 14.9 D Hct 43.5 D MCV 90.8 MCH 31.1 MCHC 34.3 RDW 12.6 Plt Count 183 MPV 10.4 Immature Gran % (Auto) 0.7 H Neut % (Auto) 72.6 Lymph % (Auto) 14.8 L Stearns % (Auto) 7.0 Eos % (Auto) 4.2 H Baso % (Auto) 0.7 Lymph # (Auto) 1.0 L Stearns # (Auto) 0.5 Eos # (Auto) 0.3 Baso # (Auto) 0.1 Abs Immat Gran (auto) 0.05 H Absolute Neuts (auto) 4.9 Absolute Nucleated RBC 0.000 Nucleated RBC % (auto) 0.0 PT INR aPTT Heparin Protocol Sodium Potassium Chloride Carbon Dioxide Anion Gap BUN Creatinine Estim Creat Clear Calc Estimated GFR POC Glucose Random Glucose Calcium Troponin I High Sens 163.0 H* COVID-19 (KENRICK) Negative COVID-19 Clin Com See Note 10/30/22 10/30/22 10/30/22 12:39 12:39 12:40 WBC RBC Hgb Hct MCV MCH MCHC RDW Plt Count MPV Immature Gran % (Auto) Neut % (Auto) Lymph % (Auto) Stearns % (Auto) Eos % (Auto) Baso % (Auto) Lymph # (Auto) Stearns # (Auto) Eos # (Auto) Baso # (Auto) Abs Immat Gran (auto) Absolute Neuts (auto) Absolute Nucleated RBC Nucleated RBC % (auto) PT 11.7 INR 1.0 aPTT Heparin Protocol 35.0 L Sodium 140 Potassium 5.3 H Chloride 106 Carbon Dioxide 21 L Anion Gap 18 BUN 39 H Creatinine 1.65 H Estim Creat Clear Calc 26.3 Estimated GFR 40 POC Glucose Random Glucose 172 H Calcium 9.4 Troponin I High Sens 406.7 H* D COVID-19 (KENRICK) COVID-19 Clin Com 10/30/22 10/30/22 10/30/22 14:08 14:08 17:44 WBC 6.7 RBC 4.63 Hgb 14.2 Hct 41.3 L MCV 89.2 MCH 30.7 MCHC 34.4 RDW 12.6 Plt Count 178 MPV 10.4 Immature Gran % (Auto) Neut % (Auto) Lymph % (Auto) Stearns % (Auto) Eos % (Auto) Baso % (Auto) Lymph # (Auto) Stearns # (Auto) Eos # (Auto) Baso # (Auto) Abs Immat Gran (auto) Absolute Neuts (auto) Absolute Nucleated RBC 0.000 Nucleated RBC % (auto) 0.0 PT TNP INR TNP aPTT Heparin Protocol TNP Sodium Potassium Chloride Carbon Dioxide Anion Gap BUN Creatinine Estim Creat Clear Calc Estimated GFR POC Glucose Random Glucose Calcium Troponin I High Sens COVID-19 (KENRICK) Negative COVID-[facility] Clin Com See Note 10/30/22 10/30/22 10/30/22 19:19 20:04 20:04 WBC RBC Hgb Hct MCV MCH MCHC RDW Plt Count MPV Immature Gran % (Auto) Neut % (Auto) Lymph % (Auto) Stearns % (Auto) Eos % (Auto) Baso % (Auto) Lymph # (Auto) Stearns # (Auto) Eos # (Auto) Baso # (Auto) Abs Immat Gran (auto) Absolute Neuts (auto) Absolute Nucleated RBC Nucleated RBC % (auto) PT INR aPTT Heparin Protocol 166.2 H* D Sodium Potassium Chloride Carbon Dioxide Anion Gap BUN Creatinine Estim Creat Clear Calc Estimated GFR POC Glucose 224 H Random Glucose Calcium Troponin I High Sens 2031.1 H* D COVID-19 (KENRICK) COVID-[place] 10/30/22 10/30/22 10/31/22 21:14 22:13 04:38 WBC RBC Hgb Hct MCV MCH MCHC RDW Plt Count MPV Immature Gran % (Auto) Neut % (Auto) Lymph % (Auto) Stearns % (Auto) Eos % (Auto) Baso % (Auto) Lymph # (Auto) Stearns # (Auto) Eos # (Auto) Baso # (Auto) Abs Immat Gran (auto) Absolute Neuts (auto) Absolute Nucleated RBC Nucleated RBC % (auto) PT INR aPTT Heparin Protocol 64.9 D 57.2 Sodium Potassium Chloride Carbon Dioxide Anion Gap BUN Creatinine Estim Creat Clear Calc Estimated GFR POC Glucose 274 H Random Glucose Calcium Troponin I High Sens COVID-19 (KENRICK) COVID-[place] 10/31/22 10/31/22 10/31/22 04:38 04:38 07:18 WBC 6.2 RBC 4.15 L Hgb 13.0 L Hct 37.5 L MCV 90.4 MCH 31.3 MCHC 34.7 RDW 12.6 Plt Count 180 MPV 10.5 Immature Gran % (Auto) Neut % (Auto) Lymph % (Auto) Stearns % (Auto) Eos % (Auto) Baso % (Auto) Lymph # (Auto) Stearns # (Auto) Eos # (Auto) Baso # (Auto) Abs Immat Gran (auto) Absolute Neuts (auto) Absolute Nucleated RBC 0.000 Nucleated RBC % (auto) 0.0 PT 12.2 INR 1.1 aPTT Heparin Protocol Sodium Potassium Chloride Carbon Dioxide Anion Gap BUN Creatinine Estim Creat Clear Calc Estimated GFR POC Glucose Random Glucose Calcium Troponin I High Sens 1678.6 H* COVID-19 ([facility]RICK) COVID-19 Clin Com 10/31/22 07:33 WBC RBC Hgb Hct MCV MCH MCHC RDW Plt Count MPV Immature Gran % (Auto) Neut % (Auto) Lymph % (Auto) Stearns % (Auto) Eos % (Auto) Baso % (Auto) Lymph # (Auto) Stearns # (Auto) Eos # (Auto) Baso # (Auto) Abs Immat Gran (auto) Absolute Neuts (auto) Absolute Nucleated RBC Nucleated RBC % (auto) PT INR aPTT Heparin Protocol Sodium Potassium Chloride Carbon Dioxide Anion Gap BUN Creatinine Estim Creat Clear Calc Estimated GFR POC Glucose 128 H Random Glucose Calcium Troponin I High Sens COVID-19 (KENRICK) COVID-19 Clin Com Imaging Radiologist's impression: Impressions Chest X-Ray 10/30/22 11:38 FINDINGS/IMPRESSION: There has been no significant radiographic change compared with March 14, 2017. No infiltrate, effusion, pneumothorax is seen. Minimal blunting of left costophrenic angle appears unchanged. There may be bone islands, pleural calcification, and/or calcified granulomata at the left lung base, unchanged. The heart appears normal in size. The mediastinum and soft tissues appear unremarkable. Orthopedic anchor screws project over the left humeral head. There are degenerative changes of the left glenohumeral joint. Progress Note: A&P Assessment and plan (1) Acute coronary syndrome: Status: Acute Assessment and Plan: Patient currently is asymptomatic. Plan for transfer to [facility] today for cardiac catheterization hopefully later today. Continue IV heparin. Continue aspirin blood pressure is better optimized continue metoprolol and high-intensity statin therapy. Patient and patient's family at bedside and discussed the need for cardiac catheterization. Kidney function is improved marginally. Still at risk for contrast induced nephropathy but understands the risk. Cardiac catheterization to further guide therapy. Risks and benefits were discussed again. Will sign of the case. Case discussed with his cardiology team. Time Spent With Patient Time: Total time managing care of this patient today ____ minutes. Progress Note: Quality Stroke Does the patient have a stroke diagnosis?: No Procedures Date of Service Date of Service: 10/31/22
== END 2022-10-31 10:32 | disposition short-term general hospital (02) | DRG 684 ==
LOC: HO.ED 10:58 → HO.EDOVER 14:11 → HO.IMC 19:05
PROVIDERS: Internal Medicine; Admitting Provider Hospitalist; Emergency Provider Emergency Medicine; PCP Internal Medicine; Visit Provider Hospitalist
DX: I12.9 Hypertensive chronic kidney disease with stage 1 through stage 4 chronic kidney disease, or unspecified chronic kidney disease (principal); N18.9 Chronic kidney disease, unspecified; E11.22 Type 2 diabetes mellitus with diabetic chronic kidney disease; Z20.822 Contact with and (suspected) exposure to COVID-19; Z79.84 Long term (current) use of oral hypoglycemic drugs; Z79.899 Other long term (current) drug therapy
CPT/HCPCS: 36415; 71045; 80048; 82947; 84484; 85025; 85027; 85610; 85730; 87635; 93005; 99285; J1643

== ENCOUNTER 2023-01-03 10:06 | Outpatient (REF) | payer MEDICARE, BC, SELFPAY ==
[2022-12-26 08:52] VITALS: BP 134/64; BP 144/80; BMI 19.4
[2023-01-03 14:12] LABS: MANUAL DIFF FLAG NO
[2023-01-03 14:23] LABS: Basophils Absolute Auto 0.1 X10*3/uL (0.0-0.2); Basophils Percent Auto 1.1 % (0-2); Eosinophils Absolute Auto 0.3 X10*3/uL (0.0-0.4); Eosinophils Percent Auto 4.1 % (0-4); Hemoglobin 9.5 g/dl (14.0-18.0); Imm Gran Abs Auto 0.03 X10*3/uL (0.00-0.03); Imm Gran Pct Auto 0.5 % (0.0-0.4); Lymphocytes Absolute Auto 0.7 X10*3/uL (1.2-4.9); Lymphocytes Percent Auto 11.1 % (20-40); Mean Corpuscular HGB Conc 30.6 g/dl (31.0-36.0); Mean Corpuscular Hemoglobin 26.1 pg (27.0-33.0); Mean Corpuscular Volume 85.2 fL (80.0-98.0); Mean Platelet Volume 10.1 fL (9.4-12.4); Monocytes Absolute Auto 0.6 X10*3/uL (0.1-1.2); Monocytes Percent Auto 8.9 % (2-11); Neutrophils Percent Auto 74.3 % (45-73); Platelet Count 297 X10*3/uL (160-400); Red Blood Count 3.64 X10*6/uL (4.60-5.80); Red Cell Distribution Width 14.8 % (11.0-16.0); White Blood Count 6.7 X10*3/uL (4.8-10.8)
[2023-01-03 14:39] LABS: Estimated Average Glucose 146 mg/dL; Hemoglobin A1c % 6.7 %
[2023-01-03 14:47] LABS: Alanine Aminotransferase 20 U/L (0-40); Albumin Level 3.6 g/dL (3.5-5.0); Alkaline Phosphatase 126 U/L (39-117); Anion Gap 15 (12-20); Aspartate Amino Transferase 16 U/L (5-37); Bilirubin Total 0.4 mg/dL (0.0-1.0); Blood Urea Nitrogen 27 mg/dL (9-16); Calcium 8.5 mg/dL (8.4-10.2); Carbon Dioxide 22 mmol/L (22-29); Chloride 108 mmol/L (96-108); Estimated Glomerular Filt Rate 36; Glucose Random 116 mg/dL (60-115); Iron 18 mcg/dL (45-160); Percent Iron Saturation 5 % (15-50); Potassium 4.5 mmol/L (3.3-5.1); Sodium 140 mmol/L (135-145); Total Iron Binding Capacity 334 mcg/dL (228-428); Total Protein 6.6 g/dL (6.5-8.0); Unsaturated Iron Binding 316 ug/dL
== END 2023-01-03 10:07 | disposition home or self-care (01) ==
LOC: HO.10HDL 10:06
PROVIDERS: Visit Provider Internal Medicine
DX: D64.9 Anemia, unspecified (principal); E11.9 Type 2 diabetes mellitus without complications; Z95.1 Presence of aortocoronary bypass graft
CPT/HCPCS: 36415; 80053; 83036; 83540; 85025

== ENCOUNTER 2023-04-13 06:11 | Outpatient (REF) | payer MEDICARE, BC, SELFPAY ==
[2023-04-05 14:09] VITALS: BP 114/54; BP 134/64; BP 144/80; BMI 18.7
[2023-04-13 13:55] LABS: MANUAL DIFF FLAG NO
[2023-04-13 14:08] LABS: Basophils Percent Auto 0.7 % (0-2); Eosinophils Absolute Auto 0.2 X10*3/uL (0.0-0.4); Eosinophils Percent Auto 4.7 % (0-4); Hematocrit 44.9 % (42.0-52.0); Hemoglobin 14.6 g/dl (14.0-18.0); Imm Gran Abs Auto 0.03 X10*3/uL (0.00-0.03); Imm Gran Pct Auto 0.7 % (0.0-0.4); Lymphocytes Absolute Auto 0.5 X10*3/uL (1.2-4.9); Mean Corpuscular HGB Conc 32.5 g/dl (31.0-36.0); Mean Corpuscular Hemoglobin 27.5 pg (27.0-33.0); Mean Corpuscular Volume 84.7 fL (80.0-98.0); Monocytes Absolute Auto 0.6 X10*3/uL (0.1-1.2); Monocytes Percent Auto 12.7 % (2-11); Neutrophils Absolute Auto 3.2 x10*3/uL (2.0-8.3); Neutrophils Percent Auto 71.2 % (45-73); Platelet Count 154 X10*3/uL (160-400); Red Cell Distribution Width 19.9 % (11.0-16.0); White Blood Count 4.5 X10*3/uL (4.8-10.8)
[2023-04-13 14:20] LABS: Estimated Average Glucose 157 mg/dL; Hemoglobin A1c % 7.1 %
[2023-04-13 14:21] LABS: Alanine Aminotransferase 30 U/L (0-40); Albumin Level 3.7 g/dL (3.5-5.0); Alkaline Phosphatase 97 U/L (39-117); Anion Gap 14 (12-20); Aspartate Amino Transferase 26 U/L (5-37); Bilirubin Total 0.5 mg/dL (0.0-1.0); Blood Urea Nitrogen 41 mg/dL (9-16); Carbon Dioxide 23 mmol/L (22-29); Chloride 104 mmol/L (96-108); Estimated Glomerular Filt Rate 31; Glucose Random 170 mg/dL (60-115); Potassium 3.9 mmol/L (3.3-5.1); Sodium 137 mmol/L (135-145); Total Protein 6.6 g/dL (6.5-8.0)
[2023-04-13 14:31] LABS: Creatinine Urine 59.26 mg/dL; Microalbum/Creatinine Ratio Ur 84.3 ug/mg cr
== END 2023-04-13 06:12 | disposition home or self-care (01) ==
LOC: HO.HMGCLDS 06:11
PROVIDERS: Absent Provider Internal Medicine Nephrology; PCP Internal Medicine; Visit Provider Internal Medicine
DX: E11.22 Type 2 diabetes mellitus with diabetic chronic kidney disease (principal); I12.9 Hypertensive chronic kidney disease with stage 1 through stage 4 chronic kidney disease, or unspecified chronic kidney disease; N18.9 Chronic kidney disease, unspecified; D63.1 Anemia in chronic kidney disease; I25.10 Atherosclerotic heart disease of native coronary artery without angina pectoris
CPT/HCPCS: 36415; 80053; 82043; 83036; 85025

== ENCOUNTER 2023-05-21 12:26 | Outpatient (REF) | payer MEDICARE, BC, SELFPAY ==
[2023-04-05 14:09] VITALS: BP 114/54; BP 134/64; BP 144/80; BMI 18.7
[2023-05-21 16:00] LABS: MANUAL DIFF FLAG NO
[2023-05-21 16:08] LABS: Basophils Percent Auto 0.8 % (0-2); Eosinophils Absolute Auto 0.3 X10*3/uL (0.0-0.4); Eosinophils Percent Auto 6.3 % (0-4); Hematocrit 43.1 % (42.0-52.0); Hemoglobin 14.2 g/dl (14.0-18.0); Imm Gran Abs Auto 0.02 X10*3/uL (0.00-0.03); Imm Gran Pct Auto 0.4 % (0.0-0.4); Lymphocytes Absolute Auto 0.6 X10*3/uL (1.2-4.9); Lymphocytes Percent Auto 11.2 % (20-40); Mean Corpuscular HGB Conc 32.9 g/dl (31.0-36.0); Mean Corpuscular Hemoglobin 29.5 pg (27.0-33.0); Mean Corpuscular Volume 89.4 fL (80.0-98.0); Mean Platelet Volume 10.5 fL (9.4-12.4); Monocytes Absolute Auto 0.5 X10*3/uL (0.1-1.2); Monocytes Percent Auto 9.6 % (2-11); Neutrophils Absolute Auto 3.5 x10*3/uL (2.0-8.3); Neutrophils Percent Auto 71.7 % (45-73); Platelet Count 161 X10*3/uL (160-400); Red Blood Count 4.82 X10*6/uL (4.60-5.80); Red Cell Distribution Width 16.6 % (11.0-16.0); White Blood Count 4.9 X10*3/uL (4.8-10.8)
[2023-05-21 16:12] LABS: Estimated Average Glucose 160 mg/dL; Hemoglobin A1c % 7.2 % (<6.0)
[2023-05-21 16:27] LABS: Anion Gap 12 (12-20); Blood Urea Nitrogen 47 mg/dL (9-16); Carbon Dioxide 23 mmol/L (22-29); Chloride 109 mmol/L (96-108); Estimated Glomerular Filt Rate 29; Glucose Random 229 mg/dL (60-115); Potassium 5.2 mmol/L (3.3-5.1); Sodium 139 mmol/L (135-145)
== END 2023-05-21 12:27 | disposition home or self-care (01) ==
LOC: HO.HMGCLDS 12:26
PROVIDERS: PCP Internal Medicine; Visit Provider Internal Medicine
DX: I25.10 Atherosclerotic heart disease of native coronary artery without angina pectoris (principal); I12.9 Hypertensive chronic kidney disease with stage 1 through stage 4 chronic kidney disease, or unspecified chronic kidney disease; E11.22 Type 2 diabetes mellitus with diabetic chronic kidney disease; N18.9 Chronic kidney disease, unspecified
CPT/HCPCS: 36415; 80048; 83036; 85025

== ENCOUNTER 2023-06-05 06:37 | Outpatient (REF) | payer MEDICARE, BC, SELFPAY ==
[2023-04-05 14:09] VITALS: BP 114/54; BP 134/64; BP 144/80; BMI 18.7
[2023-06-05 11:48] LABS: Cholesterol 154 mg/dL (<200); HDL Cholesterol 69 mg/dL (>40); LDL Cholesterol Calculated 69 mg/dL (<100); Triglycerides 83 mg/dL (<150)
== END 2023-06-05 06:38 | disposition home or self-care (01) ==
LOC: HO.HMGCLDS 06:37
PROVIDERS: PCP Internal Medicine; Visit Provider Radiology Diagnostic Ultrasound
DX: E78.2 Mixed hyperlipidemia (principal)
CPT/HCPCS: 36415; 80061

== ENCOUNTER 2023-09-07 09:10 | Outpatient (AMB) | payer MEDICARE, BC, SELFPAY ==
[2023-04-05 14:09] VITALS: BP 114/54; BP 134/64; BP 144/80; BMI 18.7
--- NOTE | 2023-09-07 09:24 | HO.NEPHOV_ITS ---
HPI HPI Comments History of Present Illness Details I had the privilege of seeing Mango in follow-up of his hypertension and history of hyponatremia as well as chronic kidney disease. He is a diabetic.He is on Farxiga. His serum creatinine had gone up but stable. He had history of coronary artery bypass grafting pre He denies nausea, vomiting, diarrhea, shortness of breath, proximal nocturnal dyspnea, orthopnea, pedal edema or urinary symptoms. He has not been taking any nonsteroidal anti- inflammatory medications. He recently did not have any blood work. 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 His hemoglobin A1c is better [facility] Medical History Chronic kidney insufficiency Diabetes Hyperkalemia Social History Household Members: Spouse Housing: House Do you presently have visiting nurse or other home services: Yes (meals on wheels) Alcohol intake: never Comment: rings appropriately, 1 assist with walker Patient Tobacco Use Status: Never used Tobacco service: No Current occupational status: retired Vital Signs 09/07/23 09:25 Height 5 ft 8 in Weight 123 lb 4 oz BMI 18.7 BP 120/80 Blood Pressure Location Rt brachial Position Sitting Pulse 89 Pulse Source Pulse Oximeter Pulse Oximetry (%) 98 Oxygen Delivery Method Room Air Physical Exam Vital Signs: Last Vital Signs Pulse 89 09/07/23 09:25 BP 120/80 09/07/23 09:25 Pulse Ox 98 09/07/23 09:25 Oxygen Delivery Method Room Air 09/07/23 09:25 BMI result Body Mass Index 18.7 Const General: comfortable and no acute distress Orientation/consciousness: patient oriented x3 HEENT Head: Yes normocephalic Mouth: Normal oral and palatal mucosa present Eyes EOM: EOMs intact bilaterally Neck Neck: Yes supple Resp Auscultation: clear to auscultation bilaterally Cardio Jugular venous distension: no JVD Rate: regular rate GI Palpation (GI): Soft to palpation Auscultation: normal bowel sounds General: Yes no CVA tenderness Back/Spine/Pelvis Back: no CVA tenderness Skin General skin exam: no rashes or lesions noted Neuro General: patient oriented x3 and moves all extremities Extrem General: Yes no pedal edema Assessment & Plan Assessment & Plan (1) CKD (chronic kidney disease) stage 4, GFR 15-29 ml/min: Code(s): N18.4 - Chronic kidney disease, stage 4 (severe) (2) Hypertension: Code(s): I10 - Essential (primary) hypertension Qualifiers: Hypertension type: primary hypertension Qualified Code(s): I10 - Essential (primary) hypertension (3) Hx of CABG: Code(s): Z95.1 - Presence of aortocoronary bypass graft Plan Mango has CKD stage 4. His blood pressure is at goal. His volume status is optimal. His blood sugar control is better. He is on Farxiga. He is not on any MEI inhibitor or ARB. His urine output is good. He avoids nonsteroidal anti-inflammatory medications and tries to keep himself well hydrated. I ordered blood work for today and in 3 months. I have not made any medication changes but shall if the lab work indicates it. He should take potassium lowering medication as ordered. All his questions were answered. Time spent retrieving data, documentation and patient encounter 29 minutes. Follow-up given. Orders: Orders Blood Urea Nitrogen Today I10 - Essential (primary) hypertension, N18.4 - Chronic kidney disease, stage 4 (severe) Calcium Today I10 - Essential (primary) hypertension, N18.4 - Chronic kidney disease, stage 4 (severe) Protein Creatinine Ratio, Ur Today I10 - Essential (primary) hypertension, N18.4 - Chronic kidney disease, stage 4 (severe) Complete Blood Count Auto Diff Today I10 - Essential (primary) hypertension, N18.4 - Chronic kidney disease, stage 4 (severe) Parathyroid Hormone Intact Today I10 - Essential (primary) hypertension, N18.4 - Chronic kidney disease, stage 4 (severe) Creatinine 3 Months I10 - Essential (primary) hypertension, N18.4 - Chronic kidney disease, stage 4 (severe) Electrolytes Today I10 - Essential (primary) hypertension, N18.4 - Chronic kidney disease, stage 4 (severe) Creatinine Today I10 - Essential (primary) hypertension, N18.4 - Chronic kidney disease, stage 4 (severe) Electrolytes 3 Months I10 - Essential (primary) hypertension, N18.4 - Chronic kidney disease, stage 4 (severe) Blood Urea Nitrogen 3 Months I10 - Essential (primary) hypertension, N18.4 - Chronic kidney disease, stage 4 (severe) Coding Level of Care Code Est Pt Level 3 (57653) Diagnoses CKD (chronic kidney disease) stage 4, GFR 15-29 ml/min N18.4 Primary hypertension I10 Hypertension type: primary hypertension Hx of CABG Z95.1 Results Reviewed Nephrology Results: Hgb 14.2 g/dl (14.0-18.0) 05/21/23 WBC 4.9 X10*3/uL (4.8-10.8) 05/21/23 Plt Count 161 X10*3/uL (160-400) 05/21/23 Sodium 139 mmol/L (135-145) 05/21/23 Potassium 5.2 mmol/L (3.3-5.1) H 05/21/23 Chloride 109 mmol/L (96-108) H 05/21/23 Carbon Dioxide 23 mmol/L (22-29) 05/21/23 BUN 47 mg/dL (9-16) H 05/21/23 Creatinine 2.18 mg/dL (0.5-1.4) H 05/21/23 Calcium 9.0 mg/dL (8.4-10.2) 05/21/23 Urine Creatinine 59.26 mg/dL 04/13/23
[2023-09-07 09:25] VITALS: BP 120/80; PULSE 89; O2SAT 98; BMI 18.7
== END 2023-09-07 09:51 | disposition home or self-care (01) ==
PROVIDERS: PCP Internal Medicine; Visit Provider Internal Medicine Nephrology
DX: I12.9 Hypertensive chronic kidney disease with stage 1 through stage 4 chronic kidney disease, or unspecified chronic kidney disease (principal); N18.4 Chronic kidney disease, stage 4 (severe); Z95.1 Presence of aortocoronary bypass graft
CPT/HCPCS: 99213

== ENCOUNTER → 2023-09-07 09:10 | Outpatient (BNVA) | payer MEDICARE, BC, SELFPAY ==
[2023-04-05 14:09] VITALS: BP 114/54; BP 134/64; BP 144/80; BMI 18.7
== END ==
PROVIDERS: PCP Internal Medicine; Visit Provider Internal Medicine Nephrology
DX: I12.9 Hypertensive chronic kidney disease with stage 1 through stage 4 chronic kidney disease, or unspecified chronic kidney disease (principal); N18.4 Chronic kidney disease, stage 4 (severe); Z95.1 Presence of aortocoronary bypass graft
CPT/HCPCS: 36415; 80051; 82310; 82565; 82570; 83970; 84156; 84520; 85025; 99212

== ENCOUNTER 2023-09-07 10:01 | Outpatient (REF) | payer MEDICARE, BC, SELFPAY ==
[2023-04-05 14:09] VITALS: BP 114/54; BP 134/64; BP 144/80; BMI 18.7
[2023-09-07 10:27] LABS: MANUAL DIFF FLAG NO
[2023-09-07 10:57] LABS: Anion Gap 14 (12-20); Blood Urea Nitrogen 49 mg/dL (9-16); Calcium 9.5 mg/dL (8.4-10.2); Carbon Dioxide 25 mmol/L (22-29); Chloride 106 mmol/L (96-108); Estimated Glomerular Filt Rate 32; Potassium 5.3 mmol/L (3.3-5.1); Sodium 140 mmol/L (135-145)
[2023-09-07 11:25] LABS: Parathyroid Hormone Intact 190.1 pg/mL (8.7-77.1)
[2023-09-07 12:16] LABS: Basophils Absolute Auto 0.1 X10*3/uL (0.0-0.2); Basophils Percent Auto 0.8 % (0-2); Eosinophils Absolute Auto 0.7 X10*3/uL (0.0-0.4); Eosinophils Percent Auto 10.9 % (0-4); Hematocrit 47.1 % (42.0-52.0); Hemoglobin 15.6 g/dl (14.0-18.0); Imm Gran Abs Auto 0.04 X10*3/uL (0.00-0.03); Imm Gran Pct Auto 0.6 % (0.0-0.4); Lymphocytes Absolute Auto 0.7 X10*3/uL (1.2-4.9); Lymphocytes Percent Auto 11.1 % (20-40); Mean Corpuscular HGB Conc 33.1 g/dl (31.0-36.0); Mean Corpuscular Hemoglobin 30.4 pg (27.0-33.0); Mean Corpuscular Volume 91.6 fL (80.0-98.0); Mean Platelet Volume 10.5 fL (9.4-12.4); Monocytes Absolute Auto 0.6 X10*3/uL (0.1-1.2); Monocytes Percent Auto 8.9 % (2-11); Neutrophils Absolute Auto 4.4 x10*3/uL (2.0-8.3); Neutrophils Percent Auto 67.7 % (45-73); Platelet Count 154 X10*3/uL (160-400); Red Blood Count 5.14 X10*6/uL (4.60-5.80); Red Cell Distribution Width 13.6 % (11.0-16.0); White Blood Count 6.5 X10*3/uL (4.8-10.8)
[2023-09-07 14:15] LABS: Creatinine Urine 81.82 mg/dL; Protein/Creatinine Ratio, Ur 0.37 (<0.2); Total Protein Urine Random 30 mg/dL (<12)
== END 2023-09-07 10:02 | disposition home or self-care (01) ==
LOC: HO.10HDL 10:01
PROVIDERS: Visit Provider Internal Medicine Nephrology
DX: Z13.89 Encounter for screening for other disorder (principal)
CPT/HCPCS: 36415; 80051; 82310; 82565; 82570; 83970; 84156; 84520; 85025

== ENCOUNTER 2023-12-19 09:14 | Outpatient (REF) | payer MEDICARE, BC, SELFPAY ==
[2023-04-05 14:09] VITALS: BP 114/54; BP 134/64; BP 144/80; BMI 18.7
[2023-12-19 10:26] LABS: MANUAL DIFF FLAG NO
[2023-12-19 12:09] LABS: Basophils Percent Auto 0.6 % (0-2); Eosinophils Absolute Auto 0.7 X10*3/uL (0.0-0.4); Eosinophils Percent Auto 9.8 % (0-4); Hematocrit 47.7 % (42.0-52.0); Hemoglobin 15.5 g/dl (14.0-18.0); Imm Gran Abs Auto 0.05 X10*3/uL (0.00-0.03); Imm Gran Pct Auto 0.8 % (0.0-0.4); Lymphocytes Absolute Auto 1.1 X10*3/uL (1.2-4.9); Lymphocytes Percent Auto 15.9 % (20-40); Mean Corpuscular HGB Conc 32.5 g/dl (31.0-36.0); Mean Corpuscular Hemoglobin 30.7 pg (27.0-33.0); Mean Corpuscular Volume 94.5 fL (80.0-98.0); Mean Platelet Volume 11.4 fL (9.4-12.4); Monocytes Absolute Auto 0.6 X10*3/uL (0.1-1.2); Neutrophils Absolute Auto 4.3 x10*3/uL (2.0-8.3); Neutrophils Percent Auto 63.9 % (45-73); Platelet Count 156 X10*3/uL (160-400); Red Blood Count 5.05 X10*6/uL (4.60-5.80); Red Cell Distribution Width 14.3 % (11.0-16.0); White Blood Count 6.7 X10*3/uL (4.8-10.8)
[2023-12-19 12:48] LABS: Anion Gap 13 (12-20); Blood Urea Nitrogen 46 mg/dL (9-16); Carbon Dioxide 25 mmol/L (22-29); Chloride 108 mmol/L (96-108); Estimated Glomerular Filt Rate 34; Potassium 5.3 mmol/L (3.3-5.1); Sodium 141 mmol/L (135-145)
== END 2023-12-19 09:15 | disposition home or self-care (01) ==
LOC: HO.LAB 09:14
PROVIDERS: PCP Internal Medicine; Visit Provider Internal Medicine Nephrology
DX: I10 Essential (primary) hypertension (principal); N18.4 Chronic kidney disease, stage 4 (severe); E87.1 Hypo-osmolality and hyponatremia
CPT/HCPCS: 36415; 80051; 82310; 82565; 84520; 85025; 99212

== ENCOUNTER 2023-12-19 09:14 | Outpatient (AMB) | payer MEDICARE, BC, SELFPAY ==
[2023-04-05 14:09] VITALS: BP 114/54; BP 134/64; BP 144/80; BMI 18.7
--- NOTE | 2023-12-19 09:30 | HO.NEPHOV ---
HPI HPI Comments History of Present Illness Details I had the privilege of seeing Mango in follow-up of his hypertension and history of hyponatremia as well as chronic kidney disease. He is a diabetic.He is on Farxiga. His serum creatinine is stable. He had history of coronary artery bypass grafting pre He denies nausea, vomiting, diarrhea, shortness of breath, proximal nocturnal dyspnea, orthopnea, pedal edema or urinary symptoms. He has not been taking any nonsteroidal anti-inflammatory medications. He recently did not have any blood work. 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 His hemoglobin A1c is better [facility] Medical History Chronic kidney insufficiency Diabetes Hyperkalemia Social History Household Members: Spouse Housing: House Do you presently have visiting nurse or other home services: Yes (meals on wheels) Alcohol intake: never Comment: rings appropriately, 1 assist with walker Patient Tobacco Use Status: Never used Tobacco service: No Current occupational status: retired Vital Signs 12/19/23 09:33 Height 5 ft 8 in Weight 125 lb 8 oz BMI 19.1 BP 110/70 Blood Pressure Location Rt brachial Position Sitting Pulse 86 Pulse Source Pulse Oximeter Pulse Oximetry (%) 99 Oxygen Delivery Method Room Air Physical Exam Const General: comfortable and no acute distress Orientation/consciousness: patient oriented x3 HEENT Head: Yes normocephalic Mouth: Normal oral and palatal mucosa present Eyes EOM: EOMs intact bilaterally Neck Neck: Yes supple Resp Auscultation: clear to auscultation bilaterally Cardio Jugular venous distension: no JVD Rate: regular rate GI Palpation (GI): Soft to palpation Auscultation: normal bowel sounds General: Yes no CVA tenderness Back/Spine/Pelvis Back: no CVA tenderness Skin General skin exam: no rashes or lesions noted Neuro General: patient oriented x3 and moves all extremities Extrem General: Yes no pedal edema Assessment & Plan Assessment & Plan (1) Hypertension: Code(s): I10 - Essential (primary) hypertension Qualifiers: Hypertension type: primary hypertension Qualified Code(s): I10 - Essential (primary) hypertension (2) CKD (chronic kidney disease) stage 4, GFR 15-29 ml/min: Code(s): N18.4 - Chronic kidney disease, stage 4 (severe) Plan Mango has CKD stage 4. His blood pressure is at goal. His volume status is optimal. His blood sugar control is better. He is on Farxiga. He is not on any MEI inhibitor or ARB. His urine output is good. He avoids nonsteroidal anti-inflammatory medications and tries to keep himself well hydrated. I ordered blood work for today and in 3 months. I have not made any medication changes but shall if the lab work indicates it. He should take potassium lowering medication as ordered. All his questions were answered. Orders: Orders Electrolytes Today I10 - Essential (primary) hypertension, N18.4 - Chronic kidney disease, stage 4 (severe) Calcium Today I10 - Essential (primary) hypertension, N18.4 - Chronic kidney disease, stage 4 (severe) Blood Urea Nitrogen 3 Months I10 - Essential (primary) hypertension, N18.4 - Chronic kidney disease, stage 4 (severe) Creatinine Today I10 - Essential (primary) hypertension, N18.4 - Chronic kidney disease, stage 4 (severe) Blood Urea Nitrogen Today I10 - Essential (primary) hypertension, N18.4 - Chronic kidney disease, stage 4 (severe) Complete Blood Count Auto Diff Today I10 - Essential (primary) hypertension, N18.4 - Chronic kidney disease, stage 4 (severe) Creatinine 3 Months I10 - Essential (primary) hypertension, N18.4 - Chronic kidney disease, stage 4 (severe) Electrolytes 3 Months I10 - Essential (primary) hypertension, N18.4 - Chronic kidney disease, stage 4 (severe) Coding Level of Care Code Est Pt Level 4 (47356) Diagnoses Primary hypertension I10 Hypertension type: primary hypertension CKD (chronic kidney disease) stage 4, GFR 15-29 ml/min N18.4 Results Reviewed Nephrology Results: Hgb 15.6 g/dl (14.0-18.0) 09/07/23 WBC 6.5 X10*3/uL (4.8-10.8) 09/07/23 Plt Count 154 X10*3/uL (160-400) L 09/07/23 Sodium 140 mmol/L (135-145) 09/07/23 Potassium 5.3 mmol/L (3.3-5.1) H 09/07/23 Chloride 106 mmol/L (96-108) 09/07/23 Carbon Dioxide 25 mmol/L (22-29) 09/07/23 BUN 49 mg/dL (9-16) H 09/07/23 Creatinine 2.03 mg/dL (0.5-1.4) H 09/07/23 Calcium 9.5 mg/dL (8.4-10.2) 09/07/23 PTH Intact 190.1 pg/mL (8.7-77.1) H 09/07/23 Urine Creatinine 81.82 mg/dL 09/07/23 Protein/Creatinin Ratio 0.37 (<0.2) H 09/07/23
[2023-12-19 09:33] VITALS: BP 110/70; PULSE 86; O2SAT 99; BMI 19.1
== END 2023-12-19 09:55 | disposition home or self-care (01) ==
PROVIDERS: PCP Internal Medicine; Visit Provider Internal Medicine Nephrology
DX: I12.9 Hypertensive chronic kidney disease with stage 1 through stage 4 chronic kidney disease, or unspecified chronic kidney disease (principal); N18.4 Chronic kidney disease, stage 4 (severe)
CPT/HCPCS: 99214

== ENCOUNTER 2024-01-03 15:17 | Outpatient (REF) | payer MEDICARE, BC, SELFPAY ==
[2023-04-05 14:09] VITALS: BP 114/54; BP 134/64; BP 144/80; BMI 18.7
--- NOTE | ~2024-01-03 | US_ITS ---
EXAMINATION: US VENOUS ULTRASOUND WITH DOPPLER LOWER EXTREMITY, RIGHT CLINICAL INFORMATION: Right-sided catheter pain COMPARISON: None available. TECHNIQUE: Ultrasound of the deep veins is performed from the hip to the calf with compression sonography and color and pulse Doppler assessment. Spectral analysis with color-flow imaging is performed. FINDINGS: There is normal venous compression and respiratory variation and augmented flow. The visualized common femoral vein, superficial femoral vein, profunda femoral vein, popliteal vein, and the trifurcation region shows no evidence of deep venous thrombosis. There is no significant popliteal fossa cyst. Contralateral left common femoral vein appears normal. If the patient's symptoms persist, followup ultrasound in 5 days 7 days might be of value to exclude proximal propagation from a non-visualized calf vein. US/US venous duplex LE RT IMPRESSION: No DVT demonstrated in the right lower extremity.
== END 2024-01-03 15:18 | disposition home or self-care (01) ==
LOC: HO.US 15:17
PROVIDERS: PCP Internal Medicine; Visit Provider Internal Medicine
DX: R22.41 Localized swelling, mass and lump, right lower limb (principal); T85.848A Pain due to other internal prosthetic devices, implants and grafts, initial encounter; Y82.8 Other medical devices associated with adverse incidents
CPT/HCPCS: 93971

== ENCOUNTER 2024-03-04 09:27 | Outpatient (REF) | payer MEDICARE, BC, SELFPAY ==
[2023-04-05 14:09] VITALS: BP 114/54; BP 134/64; BP 144/80; BMI 18.7
[2024-03-04 12:27] LABS: Anion Gap 14 (12-20); Blood Urea Nitrogen 44 mg/dL (9-16); Carbon Dioxide 24 mmol/L (22-29); Chloride 105 mmol/L (96-108); Estimated Glomerular Filt Rate 37; Potassium 5.1 mmol/L (3.3-5.1); Sodium 138 mmol/L (135-145)
== END 2024-03-04 09:28 | disposition home or self-care (01) ==
LOC: HO.10HDL 09:27
PROVIDERS: Visit Provider Internal Medicine Nephrology
DX: Z13.89 Encounter for screening for other disorder (principal)
CPT/HCPCS: 36415; 80051; 82565; 84520

== ENCOUNTER 2024-03-04 13:14 | Outpatient (REF) | payer MEDICARE, BC, SELFPAY ==
[2023-04-05 14:09] VITALS: BP 114/54; BP 134/64; BP 144/80; BMI 18.7
== END 2024-03-04 13:15 | disposition home or self-care (01) ==
LOC: HO.LNP 13:14
PROVIDERS: Visit Provider Internal Medicine
DX: H66.91 Otitis media, unspecified, right ear (principal)
CPT/HCPCS: 36415; 80051; 82565; 84520; 87070; 87077; 87186; 87205

== ENCOUNTER 2024-03-21 14:28 | Outpatient (AMB) | payer MEDICARE, BC, SELFPAY ==
[2023-04-05 14:09] VITALS: BP 114/54; BP 134/64; BP 144/80; BMI 18.7
--- NOTE | 2024-03-21 15:08 | HO.NEPHOV_ITS ---
Vital Signs 03/21/24 15:09 Height 5 ft 8 in Weight 122 lb 2 oz BMI 18.6 BP 118/70 Blood Pressure Location Rt brachial Position Sitting Pulse 86 Pulse Source Pulse Oximeter Pulse Oximetry (%) 99 Oxygen Delivery Method Room Air Intake Visit Reasons: Rscng missed 03/19 appt Technical Cable Jointer Required: No Accompanied by: Self / Same As Patient Allergies dogs and cats Allergy (Unknown, Uncoded 12/19/23 09:37) Unknown year round seasonal Allergy (Unknown, Uncoded 12/19/23 09:37) Unknown HPI Comments Details: I had the privilege of seeing Mango in follow-up of his hypertension as well as chronic kidney disease. He is a diabetic.He is on Farxiga. His serum creatinine is stable. He had history of coronary artery bypass grafting pre He denies nausea, vomiting, diarrhea, shortness of breath, proximal nocturnal dyspnea, orthopnea, pedal edema or urinary symptoms. He has not been taking any nonsteroidal anti-inflammatory medications. He recently did not have any blood work. 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 His hemoglobin A1c is better [facility] Medical History Chronic kidney insufficiency Diabetes Hyperkalemia Social History Household Members: Spouse Housing: House Do you presently have visiting nurse or other home services: Yes (meals on wheels) Alcohol intake: never Comment: rings appropriately, 1 assist with walker Patient Tobacco Use Status: Never used Tobacco service: No Current occupational status: retired Physical Exam Vital Signs: Last Vital Signs Pulse 86 03/21/24 15:09 BP 118/70 03/21/24 15:09 Pulse Ox 99 03/21/24 15:09 Oxygen Delivery Method Room Air 03/21/24 15:09 BMI result Body Mass Index 18.6 Const General: comfortable and no acute distress Orientation/consciousness: patient oriented x3 HEENT Head: Yes normocephalic Mouth: Normal oral and palatal mucosa present Eyes EOM: EOMs intact bilaterally Neck Neck: Yes supple Resp Auscultation: clear to auscultation bilaterally Cardio Jugular venous distension: no JVD Rate: regular rate GI Palpation (GI): Soft to palpation Auscultation: normal bowel sounds General: Yes no CVA tenderness Back/Spine/Pelvis Back: no CVA tenderness Skin General skin exam: no rashes or lesions noted Neuro General: patient oriented x3 and moves all extremities Extrem General: Yes no pedal edema Results Reviewed Nephrology Results: Hgb 15.5 g/dl (14.0-18.0) 12/19/23 WBC 6.7 X10*3/uL (4.8-10.8) 12/19/23 Plt Count 156 X10*3/uL (160-400) L 12/19/23 Sodium 138 mmol/L (135-145) 03/04/24 Potassium 5.1 mmol/L (3.3-5.1) 03/04/24 Chloride 105 mmol/L (96-108) 03/04/24 Carbon Dioxide 24 mmol/L (22-29) 03/04/24 BUN 44 mg/dL (9-16) H 03/04/24 Creatinine 1.77 mg/dL (0.5-1.4) H 03/04/24 Calcium 9.0 mg/dL (8.4-10.2) 12/19/23 PTH Intact 190.1 pg/mL (8.7-77.1) H 09/07/23 Urine Creatinine 81.82 mg/dL 09/07/23 Protein/Creatinin Ratio 0.37 (<0.2) H 09/07/23 Assessment & Plan Assessment & Plan (1) CKD (chronic kidney disease) stage 4, GFR 15-29 ml/min: Code(s): N18.4 - Chronic kidney disease, stage 4 (severe) Category: Medical (2) Hypertension: Code(s): I10 - Essential (primary) hypertension Category: Medical Qualifiers: Hypertension type: primary hypertension Qualified Code(s): I10 - Essential (primary) hypertension Plan Mango has CKD stage 4. His blood pressure is at goal. His volume status is optimal. His blood sugar control is better. He is on Farxiga. He is not on any MEI inhibitor or ARB. His urine output is good. He avoids nonsteroidal anti-inflammatory medications and tries to keep himself well hydrated. I have not made any medication changes today. He should take potassium lowering medication as ordered. Follow up labs ordered. All his questions were answered. Orders: Orders Creatinine 03/21/24 I10 - Essential (primary) hypertension, N18.4 - Chronic ki dney disease, stage 4 (severe) Blood Urea Nitrogen 03/21/24 I10 - Essential (primary) hypertension, N18.4 - Chronic kidney disease, stage 4 (severe) Electrolytes 03/21/24 I10 - Essential (primary) hypertension, N18.4 - Chronic kidney disease, stage 4 (severe) Coding Level of Care Code Est Pt Level 4 (09304) Diagnoses CKD (chronic kidney disease) stage 4, GFR 15-29 ml/min N18.4 Primary hypertension I10 Hypertension type: primary hypertension
[2024-03-21 15:09] VITALS: BP 118/70; PULSE 86; O2SAT 99; BMI 18.6
== END 2024-03-21 15:33 | disposition home or self-care (01) ==
PROVIDERS: PCP Internal Medicine; Visit Provider Internal Medicine Nephrology
DX: I12.9 Hypertensive chronic kidney disease with stage 1 through stage 4 chronic kidney disease, or unspecified chronic kidney disease (principal); N18.4 Chronic kidney disease, stage 4 (severe)
CPT/HCPCS: 99214

== ENCOUNTER → 2024-03-21 14:28 | Outpatient (BNVA) | payer MEDICARE, BC, SELFPAY ==
[2023-04-05 14:09] VITALS: BP 114/54; BP 134/64; BP 144/80; BMI 18.7
== END ==
PROVIDERS: PCP Internal Medicine; Visit Provider Internal Medicine Nephrology
DX: I12.9 Hypertensive chronic kidney disease with stage 1 through stage 4 chronic kidney disease, or unspecified chronic kidney disease (principal); N18.4 Chronic kidney disease, stage 4 (severe)
CPT/HCPCS: 99212

== ENCOUNTER 2024-06-25 14:19 | Outpatient (REF) | payer MEDICARE, BC, SELFPAY ==
[2023-04-05 14:09] VITALS: BP 114/54; BP 134/64; BP 144/80; BMI 18.7
[2024-06-25 16:06] LABS: MANUAL DIFF FLAG NO
[2024-06-25 16:22] LABS: Alanine Aminotransferase 39 U/L (0-40); Albumin Level 3.9 g/dL (3.5-5.0); Alkaline Phosphatase 126 U/L (39-117); Anion Gap 13 (12-20); Aspartate Amino Transferase 35 U/L (5-37); Bilirubin Total 0.7 mg/dL (0.0-1.0); Blood Urea Nitrogen 35 mg/dL (9-16); Calcium 8.9 mg/dL (8.4-10.2); Carbon Dioxide 25 mmol/L (22-29); Chloride 108 mmol/L (96-108); Cholesterol 152 mg/dL (<200); Estimated Glomerular Filt Rate 48; Glucose Random 149 mg/dL (60-115); Potassium 5.3 mmol/L (3.3-5.1); Sodium 141 mmol/L (135-145); Total Protein 6.9 g/dL (6.5-8.0)
[2024-06-25 16:27] LABS: Basophils Percent Auto 0.9 % (0-2); Eosinophils Absolute Auto 0.4 X10*3/uL (0.0-0.4); Eosinophils Percent Auto 9.1 % (0-4); Hemoglobin 14.1 g/dl (14.0-18.0); Imm Gran Abs Auto 0.02 X10*3/uL (0.00-0.03); Imm Gran Pct Auto 0.4 % (0.0-0.4); Lymphocytes Absolute Auto 0.8 X10*3/uL (1.2-4.9); Mean Corpuscular HGB Conc 33.6 g/dl (31.0-36.0); Mean Corpuscular Hemoglobin 32.2 pg (27.0-33.0); Mean Corpuscular Volume 95.9 fL (80.0-98.0); Mean Platelet Volume 11.5 fL (9.4-12.4); Monocytes Absolute Auto 0.6 X10*3/uL (0.1-1.2); Neutrophils Absolute Auto 2.7 x10*3/uL (2.0-8.3); Neutrophils Percent Auto 59.6 % (45-73); Platelet Count 141 X10*3/uL (160-400); Red Blood Count 4.38 X10*6/uL (4.60-5.80); Red Cell Distribution Width 15.1 % (11.0-16.0); White Blood Count 4.5 X10*3/uL (4.8-10.8)
[2024-06-25 16:42] LABS: Estimated Average Glucose 151 mg/dL; Hemoglobin A1C 186.1945 umol/L; Hemoglobin A1c % 6.9 % (<6.0); Total Hemoglobin (HGBA1C) 3553.4602 umol/L
== END 2024-06-25 14:20 | disposition home or self-care (01) ==
LOC: HO.HMGCLDS 14:19
PROVIDERS: PCP Internal Medicine; Referring Provider Internal Medicine Nephrology; Visit Provider Internal Medicine
DX: E11.22 Type 2 diabetes mellitus with diabetic chronic kidney disease (principal); R63.4 Abnormal weight loss; I25.10 Atherosclerotic heart disease of native coronary artery without angina pectoris; I12.9 Hypertensive chronic kidney disease with stage 1 through stage 4 chronic kidney disease, or unspecified chronic kidney disease; N18.9 Chronic kidney disease, unspecified
CPT/HCPCS: 36415; 80053; 82465; 83036; 85025

== ENCOUNTER 2024-07-11 09:59 | Outpatient (AMB) | payer MEDICARE, BC, SELFPAY ==
[2023-04-05 14:09] VITALS: BP 114/54; BP 134/64; BP 144/80; BMI 18.7
--- NOTE | 2024-07-11 10:02 | HO.NEPHOV ---
Vital Signs 07/11/24 10:03 Height 5 ft 8 in Weight 116 lb BMI 17.6 BP 130/80 Blood Pressure Location Rt brachial Position Sitting Pulse 85 Pulse Source Pulse Oximeter Pulse Oximetry (%) 99 Oxygen Delivery Method Room Air Intake Visit Reasons: Oct follow up- Conf [place] Picker Required: No Accompanied by: Son Allergies dogs and cats Allergy (Unknown, Uncoded 12/19/23 09:37) Unknown year round seasonal Allergy (Unknown, Uncoded 12/19/23 09:37) Unknown HPI Comments Details: I had the privilege of seeing Mango in follow-up of his hypertension as well as chronic kidney disease. He is a diabetic.He is on Farxiga. His serum creatinine is better. He had history of coronary artery bypass grafting . He denies nausea, vomiting, diarrhea, shortness of breath, proximal nocturnal dyspnea, orthopnea, pedal edema or urinary symptoms. He has not been taking any nonsteroidal anti-inflammatory medications. 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 His hemoglobin A1c is better [facility] Medical History Chronic kidney insufficiency Diabetes Hyperkalemia Social History Household Members: Spouse Housing: House Do you presently have visiting nurse or other home services: Yes (meals on wheels) Alcohol intake: never Comment: rings appropriately, 1 assist with walker Patient Tobacco Use Status: Never used Tobacco service: No Current occupational status: retired Review of Systems Const All systems reviewed & are unremarkable except as noted in HPI and below Physical Exam Vital Signs: Last Vital Signs Pulse 85 07/11/24 10:03 BP 170/92 H 07/11/24 10:03 Pulse Ox 99 07/11/24 10:03 Oxygen Delivery Method Room Air 07/11/24 10:03 BMI result Body Mass Index 17.6 Const General: comfortable and no acute distress Orientation/consciousness: patient oriented x3 HEENT Head: Yes normocephalic Mouth: Normal oral and palatal mucosa present Eyes EOM: EOMs intact bilaterally Neck Neck: Yes supple Resp Auscultation: clear to auscultation bilaterally Cardio Jugular venous distension: no JVD Rate: regular rate GI Palpation (GI): Soft to palpation Auscultation: normal bowel sounds General: Yes no CVA tenderness Back/Spine/Pelvis Back: no CVA tenderness Skin General skin exam: no rashes or lesions noted Neuro General: patient oriented x3 and moves all extremities Extrem General: Yes no pedal edema Results Reviewed Nephrology Results: Hgb 14.1 g/dl (14.0-18.0) 06/25/24 WBC 4.5 X10*3/uL (4.8-10.8) L 06/25/24 Plt Count 141 X10*3/uL (160-400) L 06/25/24 Sodium 141 mmol/L (135-145) 06/25/24 Potassium 5.3 mmol/L (3.3-5.1) H 06/25/24 Chloride 108 mmol/L (96-108) 06/25/24 Carbon Dioxide 25 mmol/L (22-29) 06/25/24 BUN 35 mg/dL (9-16) H 06/25/24 Creatinine 1.40 mg/dL (0.5-1.4) 06/25/24 Calcium 8.9 mg/dL (8.4-10.2) 06/25/24 PTH Intact 190.1 pg/mL (8.7-77.1) H 09/07/23 Urine Creatinine 81.82 mg/dL 09/07/23 Protein/Creatinin Ratio 0.37 (<0.2) H 09/07/23 Assessment & Plan Assessment & Plan (1) Hypertension: Code(s): I10 - Essential (primary) hypertension Category: Medical Qualifiers: Hypertension type: primary hypertension Qualified Code(s): I10 - Essential (primary) hypertension (2) CKD (chronic kidney disease) stage 4, GFR 15-29 ml/min: Code(s): N18.4 - Chronic kidney disease, stage 4 (severe) Category: Medical Plan Mango has CKD stage 4. His blood pressure is at goal. His volume status is optimal. His blood sugar control is better. He is on Farxiga. He is not on any MEI inhibitor or ARB. His urine output is good. He avoids nonsteroidal anti-inflammatory medications and tries to keep himself well hydrated. I have not made any medication changes today. He should take potassium lowering medication as ordered. Follow up labs ordered. All his questions were answered Orders: Orders Creatinine 4 Months I10 - Essential (primary) hypertension, N18.4 - Chronic kidney disease, stage 4 (severe) Blood Urea Nitrogen 4 Months I10 - Essential (primary) hypertension, N18.4 - Chronic kidney disease, stage 4 (severe) Electrolytes 4 Months I10 - Essential (primary) hypertension, N18.4 - Chronic kidney disease, stage 4 (severe) Coding Level of Care Code Est Pt Level 4 (23398) Diagnoses Primary hypertension I10 Hypertension type: primary hypertension CKD (chronic kidney disease) stage 4, GFR 15-29 ml/min N18.4
[2024-07-11 10:03] VITALS: BP 130/80; PULSE 85; O2SAT 99; BMI 17.6
== END 2024-07-11 10:47 | disposition home or self-care (01) ==
PROVIDERS: PCP Internal Medicine; Visit Provider Internal Medicine Nephrology
DX: I12.9 Hypertensive chronic kidney disease with stage 1 through stage 4 chronic kidney disease, or unspecified chronic kidney disease (principal); N18.4 Chronic kidney disease, stage 4 (severe)
CPT/HCPCS: 99214

== ENCOUNTER → 2024-07-11 09:59 | Outpatient (BNVA) | payer MEDICARE, BC, SELFPAY ==
[2023-04-05 14:09] VITALS: BP 114/54; BP 134/64; BP 144/80; BMI 18.7
== END ==
PROVIDERS: PCP Internal Medicine; Visit Provider Internal Medicine Nephrology
DX: I12.9 Hypertensive chronic kidney disease with stage 1 through stage 4 chronic kidney disease, or unspecified chronic kidney disease (principal); N18.4 Chronic kidney disease, stage 4 (severe)
CPT/HCPCS: 99212

== ENCOUNTER 2024-10-24 06:15 | Outpatient (REF) | payer MEDICARE, BC, SELFPAY ==
[2023-04-05 14:09] VITALS: BP 114/54; BP 134/64; BP 144/80; BMI 18.7
[2024-10-24 10:51] LABS: Appearance Urine Clear; Color Urine Yellow; Glucose Urine UA >=1000 mg/dL (Negative); Leukocyte Esterase Urine Negative (Negative); Nitrite Urine Negative (Negative); PH 5.5 (5.0-9.0); Specific Gravity - Urine >= 1.030 (1.005-1.025); UMIC TRIGGER UA YES; Urine Blood Negative (Negative); Urine Ketones Negative (Negative); Urine Protein 30 (1+) mg/dL (Neg-Trace)
[2024-10-24 10:55] LABS: MANUAL DIFF FLAG NO
[2024-10-24 10:56] LABS: Bacteria Urine None Seen (None Seen); Hyaline Casts Urine 0-2 /LPF (0-2); RBC Urine 0-2 /HPF (0-2); Squamous Epithelial Cell Urine 0-2 /HPF (0-2); WBC Urine 0-5 /HPF (0-5)
[2024-10-24 11:02] LABS: Basophils Absolute Auto 0.1 X10*3/uL (0.0-0.2); Basophils Percent Auto 0.7 % (0-2); Eosinophils Absolute Auto 0.4 X10*3/uL (0.0-0.4); Eosinophils Percent Auto 5.4 % (0-4); Hematocrit 49.3 % (42.0-52.0); Hemoglobin 16.4 g/dl (14.0-18.0); Imm Gran Abs Auto 0.03 X10*3/uL (0.00-0.03); Imm Gran Pct Auto 0.4 % (0.0-0.4); Lymphocytes Absolute Auto 1.2 X10*3/uL (1.2-4.9); Lymphocytes Percent Auto 17.4 % (20-40); Mean Corpuscular HGB Conc 33.3 g/dl (31.0-36.0); Mean Corpuscular Hemoglobin 31.2 pg (27.0-33.0); Mean Corpuscular Volume 93.7 fL (80.0-98.0); Mean Platelet Volume 11.5 fL (9.4-12.4); Monocytes Absolute Auto 0.7 X10*3/uL (0.1-1.2); Neutrophils Absolute Auto 4.4 x10*3/uL (2.0-8.3); Neutrophils Percent Auto 66.1 % (45-73); Platelet Count 137 X10*3/uL (160-400); Red Blood Count 5.26 X10*6/uL (4.60-5.80); White Blood Count 6.7 X10*3/uL (4.8-10.8)
[2024-10-24 11:09] LABS: Estimated Average Glucose 174 mg/dL; Hemoglobin A1C 262.1649 umol/L; Hemoglobin A1c % 7.7 % (<6.0); Total Hemoglobin (HGBA1C) 4292.4911 umol/L
[2024-10-24 11:10] LABS: Creatinine Urine 72.42 mg/dL; Microalbum/Creatinine Ratio Ur 440.4 ug/mg cr (<30)
[2024-10-24 11:29] LABS: Alanine Aminotransferase 49 U/L (0-40); Albumin Level 4.1 g/dL (3.5-5.0); Alkaline Phosphatase 115 U/L (39-117); Anion Gap 12 (12-20); Aspartate Amino Transferase 47 U/L (5-37); Bilirubin Total 0.9 mg/dL (0.0-1.0); Blood Urea Nitrogen 54 mg/dL (9-16); Calcium 9.5 mg/dL (8.4-10.2); Carbon Dioxide 25 mmol/L (22-29); Chloride 110 mmol/L (96-108); Cholesterol 150 mg/dL (<200); Estimated Glomerular Filt Rate 41; Glucose Fasting 144 mg/dL (60-99); HDL Cholesterol 63 mg/dL (>40); Iron 128 mcg/dL (45-160); LDL Cholesterol Calculated 74 mg/dL (<100); Percent Iron Saturation 46 % (15-50); Potassium 4.6 mmol/L (3.3-5.1); Sodium 142 mmol/L (135-145); Total Iron Binding Capacity 277 mcg/dL (228-428); Total Protein 7.4 g/dL (6.5-8.0); Triglycerides 68 mg/dL (<150); Unsaturated Iron Binding 149 ug/dL
== END 2024-10-24 06:16 | disposition home or self-care (01) ==
LOC: HO.HMGCLDS 06:15
PROVIDERS: PCP Internal Medicine; Referring Provider Internal Medicine Nephrology; Visit Provider Internal Medicine
DX: I10 Essential (primary) hypertension (principal); E11.9 Type 2 diabetes mellitus without complications; E78.00 Pure hypercholesterolemia, unspecified; D64.9 Anemia, unspecified; N18.9 Chronic kidney disease, unspecified; I25.10 Atherosclerotic heart disease of native coronary artery without angina pectoris
CPT/HCPCS: 36415; 80053; 80061; 81001; 82043; 82570; 83036; 83540; 85025

== ENCOUNTER 2024-11-07 09:32 | Outpatient (AMB) | payer MEDICARE, BC, SELFPAY ==
[2023-04-05 14:09] VITALS: BP 114/54; BP 134/64; BP 144/80; BMI 18.7
--- NOTE | 2024-11-07 09:49 | HO.NEPHOV_ITS ---
Vital Signs 11/07/24 09:51 Height 5 ft 8 in Weight 126 lb 4 oz BMI 19.2 BP 120/60 Blood Pressure Location Rt brachial Position Sitting Pulse 56 Pulse Source Pulse Oximeter Pulse Oximetry (%) 96 Oxygen Delivery Method Room Air Intake Visit Reasons: 4mon follow up/ Conf Pathology Transcriptionist Required: No Accompanied by: Self / Same As Patient Allergies dogs and cats Allergy (Unknown, Uncoded 12/19/23 09:37) Unknown year round seasonal Allergy (Unknown, Uncoded 12/19/23 09:37) Unknown HPI Comments Details: I had the privilege of seeing Mango in follow-up of his hypertension as well as chronic kidney disease. He is a diabetic.He is on Farxiga. His serum creatinine is better. He had history of coronary artery bypass grafting . He denies nausea, vomiting, diarrhea, shortness of breath, proximal nocturnal dyspnea, orthopnea, pedal edema or urinary symptoms. He has not been taking any nonsteroidal anti-inflammatory medications. 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 [facility] Medical History Chronic kidney insufficiency Diabetes Hyperkalemia Social History Household Members: Spouse Housing: House Do you presently have visiting nurse or other home services: Yes (meals on wheels) Alcohol intake: never Comment: rings appropriately, 1 assist with walker Patient Tobacco Use Status: Never used Tobacco service: No Current occupational status: retired Review of Systems Const All systems reviewed & are unremarkable except as noted in HPI and below Physical Exam Vital Signs: Last Vital Signs Pulse 56 11/07/24 09:51 BP 120/60 11/07/24 09:51 Pulse Ox 96 11/07/24 09:51 Oxygen Delivery Method Room Air 11/07/24 09:51 BMI result Body Mass Index 19.2 Const General: comfortable and no acute distress Orientation/consciousness: patient oriented x3 HEENT Head: Yes normocephalic Mouth: Normal oral and palatal mucosa present Eyes EOM: EOMs intact bilaterally Neck Neck: Yes supple Resp Auscultation: clear to auscultation bilaterally Cardio Jugular venous distension: no JVD Rate: regular rate GI Palpation (GI): Soft to palpation Auscultation: normal bowel sounds General: Yes no CVA tenderness Back/Spine/Pelvis Back: no CVA tenderness Skin General skin exam: no rashes or lesions noted Neuro General: patient oriented x3 and moves all extremities Extrem General: Yes no pedal edema Results Reviewed Nephrology Results: Hgb 16.4 g/dl (14.0-18.0) 10/24/24 WBC 6.7 X10*3/uL (4.8-10.8) 10/24/24 Plt Count 137 X10*3/uL (160-400) L 10/24/24 Sodium 142 mmol/L (135-145) 10/24/24 Potassium 4.6 mmol/L (3.3-5.1) 10/24/24 Chloride 110 mmol/L (96-108) H 10/24/24 Carbon Dioxide 25 mmol/L (22-29) 10/24/24 BUN 54 mg/dL (9-16) H 10/24/24 Creatinine 1.62 mg/dL (0.5-1.4) H 10/24/24 Calcium 9.5 mg/dL (8.4-10.2) 10/24/24 PTH Intact 190.1 pg/mL (8.7-77.1) H 09/07/23 Urine Protein 30 (1+) mg/dL (Neg-Trace) H 10/24/24 Urine Creatinine 72.42 mg/dL 10/24/24 Protein/Creatinin Ratio 0.37 (<0.2) H 09/07/23 Assessment & Plan Assessment & Plan (1) Hypertension: Code(s): I10 - Essential (primary) hypertension Category: Medical Qualifiers: Hypertension type: primary hypertension Qualified Code(s): I10 - Essential (primary) hypertension (2) CKD (chronic kidney disease) stage 4, GFR 15-29 ml/min: Code(s): N18.4 - Chronic kidney disease, stage 4 (severe) Category: Medical Plan Mango has CKD stage 4. His blood pressure is at goal. His volume status is optimal. His blood sugar control is fair. He is on Farxiga. He is not on any MEI inhibitor or ARB. His urine output is good. He avoids nonsteroidal anti- inflammatory medications and tries to keep himself well hydrated. I have not made any medication changes today. Follow up labs ordered. All his questions were answered Orders: Orders Creatinine 4 Months I10 - Essential (primary) hypertension, N18.4 - Chronic kidney disease, stage 4 (severe) Electrolytes 4 Months I10 - Essential (primary) hypertension, N18.4 - Chronic kidney disease, stage 4 (severe) Blood Urea Nitrogen 4 Months I10 - Essential (primary) hypertension, N18.4 - Chronic kidney disease, stage 4 (severe) Coding Level of Care Code Est Pt Level 4 (26844) Diagnoses Primary hypertension I10 Hypertension type: primary hypertension CKD (chronic kidney disease) stage 4, GFR 15-29 ml/min N18.4
[2024-11-07 09:51] VITALS: BP 120/60; PULSE 56; O2SAT 96; BMI 19.2
--- OUTSIDE RECORDS SUMMARY | 2024-11-07 09:59 | XMS_ITS | Clinical Summary ---
Author Organization [facility] Address [address] [place] [address] Phone Care Team Providers Care Garment Manufacturing Supervisor Name Role Phone Beny Berrios MD Primary Care Provider [phone] Allergies Active Allergy Reactions Criticality Noted Date Comments Cat Dander 11/30/2022 Levonorgestrel-Ethin yl Estrad 07/02/2018 Other Other (see comments) 11/25/2021 Other reaction(s): Other (See Comments) Cats, pollen- runny nose, tearing eyes Cats, pollen- runny nose, tearing eyes Medications glipiZIDE (GLUCOTROL) 10 MG tablet Take 10 mg by mouth in the morning and 10 mg in the evening. Take before meals. Active tamsulosin (FLOMAX) 0.4 MG 24 hr capsule Take 0.4 mg by mouth in the morning. Active Dapagliflozin Propanediol (Farxiga) 10 MG tablet Take 1 tablet by mouth 1 (one) time each day Active sodium polystyrene sulfonate (KAYEXALATE) powder MIX 30G IN LIQUID AND DRINK3 TIMES A WEEK 908 g 1 02/28/2023 Active aspirin (ST PETTY) 81 MG EC tablet Take 81 mg by mouth 1 (one) time each day Active metoprolol succinate XL (TOPROL XL) 25 MG 24 hr tablet Take 25 mg by mouth 1 (one) time each day Do not crush or chew. 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 His surgical site is well healed. Overall, he's doing very well aside from a lot of episodic hypoglycemia. He's following up with his PCP about this tomorrow. I've encouraged him to remain physically active since he is no longer going to cardiac rehab. He does not smoke and is very conscious about following a heart healthy diet. Amiodarone has been discontinued as it has been three months since his surgery. He will remain on Plavix in addition to 81 mg aspirin for one year post- operatively. 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 No numbers. Electrocardiogram abnormal 11/05/2018 Type 2 diabetes mellitus in nonobese 07/02/2018 Ventricular arrhythmia 07/02/2018 Overview (12/14/2021): Last Assessment & Plan: Denies palpitations or lightheaded spells. Resolved Problems Problem Noted Date Diagnosed Date Resolved Date Diabetes mellitus 12/14/2021 12/14/2021 Gastroesophageal reflux disease 12/14/2021 12/14/2021 H/O: tuberculosis 12/14/2021 12/14/2021 Hypercholesterolemia 12/14/2021 022 Immunizations Name Administration Dates Next Due Influenza Split High Dose Pr eservative Free IM 07/13/2018 Moderna SARS-COV-2 04/17/2022 Pfizer SARS-COV-2 07/07/2021,11/24/2020,11/03/19 21 Pneumococcal Conjugate 13-Valent 06/18/2017 Pneumococcal Polysaccharide 06/27/2018 Shingrix 06/27/2018 Family History Medical History Relation Comments Diabetes Mother Heart disease Mother [place] Relation Status Comments Father Mother Social History Tobacco Use Types Packs/Day Years Used Date Smoking Tobacco: Never Smokeless Tobacco: Never Tobacco Cessation:Counseling Given: Not Answered Alcohol Use Standard Drinks/Week Comments Not Currently 0 (1 standard drink = 0.6 oz pure alcohol) Alcoholic Drinks/day: Occasional social drink Sex and Gender Information Value Date Recorded Sex Assigned at Not on file Legal Sex Male 4:46 PM EST Gender Identity Not on file Sexual Orientation Not on file Last Filed Vital Signs Vital Sign Reading Time Taken Comments Blood Pressure 100/60 06/20/2023 3:29 PM EDT Pulse 64 06/20/2023 3:29 PM EDT Temperature - - Respiratory Rate - - Oxygen Saturation 96% 06/20/2023 3:29 PM EDT Inhaled Oxygen Concentration - - Weight 54.1 kg (119 lb 3.2 oz) 06/20/2023 3:29 P M EDT Height 172.7 cm (5' 8 ) 09/20/2022 1:59 PM EST Body Mass Index 18.12 09/20/2022 1:59 PM EST Plan of Treatment Health Maintenance Due Date Last Done Comments Diabetes: Ophthalmology Exam 10/24/2020 Diabetes: Pedal Pulse Checked 10/24/2020 Diabetes: Sensory Foot Exam 10/24/2020 Diabetes: Visual Foot Exam 10/24/2020 Diabetes: Hemoglobin A1C 12/19/2022 09/20/2022 Influenza Vaccine (#1) 2024 07/13/2018 Pneumococcal Vaccine: 65+ Years Completed 06/27/2018, 06/18/2017 Hepatitis B Vaccine Aged Out No longe r eligible based on patient's age to complete this topic Procedures Procedure Name Priority Date/Time Associated Diagnosis Comments HEMOGLOBIN A1C Routine 09/20/2022 2:50 PM EST Renal disorder due to type 2 diabetes mellitus <Diabetic nephropathy> (HCC) Hyperkalemia Chronic kidney disease stage 3 (HCC) Hypertension from Last 3 Months or Most Recently Relevant to Health Maintenance Results * Hemoglobin A1c (09/20/2022 2:50 PM EST) Hemoglobin A1C 9.9 % NEVIN Comment: ?Hemoglobin A1C Reference Range ? Adults: ??4.8 - 6.0 % ? Non diabetic: ??< 6.0 % ? Goal: ??< 7.0 % Additional Action Suggested: ??> 8.0 % Note: ??Hemoglobin A1c results are invalid for patients ? with abnormal amounts of HbF. ??Blood transfusions ? may impact the HbA1c concentration in the patient ? sample. Estimated Average Glucose 237 mg/dL NEVIN Comment: eAG = Estimated average glucose which is %A1C expressed as average glucose, using the formula of the [id number] Average Glucose study (ADAG), Diabetes Care, Vol.31,#8, Apr. 2007 Blood (Blood, Venous) 09/20/2022 2:50 PM EST 09/20/2022 2:50 PM EST us Maxi Griffiths MD LAB BLOOD ORDERABLES Final Resul t NEVIN from Last 3 Months or Most Recently Relevant to Health Maintenance Insurance MEDICARE [facility] MEDICARE [facility] Care Teams Garment Manufacturing Supervisor Relationship Specialty Start Date End Date Beny Berrios MD [address] [place] [address] [id number] [place], [place] [facility] - General 10/04/20
== END 2024-11-07 10:02 | disposition home or self-care (01) ==
PROVIDERS: PCP Internal Medicine; Visit Provider Internal Medicine Nephrology
DX: I12.9 Hypertensive chronic kidney disease with stage 1 through stage 4 chronic kidney disease, or unspecified chronic kidney disease (principal); N18.4 Chronic kidney disease, stage 4 (severe)
CPT/HCPCS: 99214

== ENCOUNTER → 2024-11-07 09:32 | Outpatient (BNVA) | payer MEDICARE, BC, SELFPAY ==
[2023-04-05 14:09] VITALS: BP 114/54; BP 134/64; BP 144/80; BMI 18.7
== END ==
PROVIDERS: PCP Internal Medicine; Visit Provider Internal Medicine Nephrology
DX: E11.22 Type 2 diabetes mellitus with diabetic chronic kidney disease (principal); I12.9 Hypertensive chronic kidney disease with stage 1 through stage 4 chronic kidney disease, or unspecified chronic kidney disease; N18.4 Chronic kidney disease, stage 4 (severe); Z79.899 Other long term (current) drug therapy
CPT/HCPCS: 99212

== ENCOUNTER 2025-02-25 13:17 | Outpatient (AMB) | payer MEDICARE, BC, SELFPAY ==
[2023-04-05 14:09] VITALS: BP 114/54; BP 134/64; BP 144/80; BMI 18.7
[2025-02-25 13:29] VITALS: BP 130/76; PULSE 92; TEMP 36.3; O2SAT 98; BMI 18.5
--- NOTE | 2025-02-25 13:29 | A.OFFPC_ITS ---
Vital Signs 02/25/25 13:29 Height 5 ft 8 in Weight 122 lb BMI 18.5 BP 130/76 Blood Pressure Location Rt brachial Position Sitting Pulse 92 Pulse Source Pulse Oximeter Temp 97.4 F Temp Source Axillary Pulse Oximetry (%) 98 Oxygen Delivery Method Room Air Intake Visit Reasons: Routine Accompanied by: Self / Same As Patient Allergies dogs and cats Allergy (Mild, Uncoded 02/25/25 13:33) Unknown year round seasonal Allergy (Unknown, Uncoded 12/19/23 09:37) Unknown Tobacco use date assessed: 02/25/25 Fall risk assessment: No Falls in past year Last assessed Fall Risk: 02/25/25 Dental Screening Dental Screen Date: 02/25/25 Did you have a dental visit in the last 12 months?: Yes Did you have a dental problem in the last 6 months where you did not have access to dental care?: No [facility] Medical History Chronic kidney insufficiency Hyperkalemia Diabetes Surgical History History of colonoscopy (~12/04/18) Family History (Updated 02/25/25 @ 13:40 by Rosibel Olvera MA) Mother No problems noted. Father No problems noted. Social History Household Members: Spouse Housing: House Do you presently have visiting nurse or other home services: Yes (meals on wheels) Alcohol intake: never Comment: rings appropriately, 1 assist with walker Patient Tobacco Use Status: Never used Tobacco e-Cigarette/Vaping Use: Never Used service: No Current occupational status: retired Cognitive needs: Yes (cane) Hearing needs: Yes (bilateral hearing aids.) Vision needs: No Questionnaire PHQ-9 Over the last 2 weeks, how often have you been bothered by any of the following problems? 1. Little interest or pleasure in doing things: not at all 2. Feeling down, depressed, or hopeless: not at all 3. Trouble falling or staying asleep, or sleeping too much: not at all 4. Feeling tired or having little energy: not at all 5. Poor appetite or overeating: not at all 6. Feeling bad about yourself - or that you are a failure or have let yourself or your family down: not at all 7. Trouble concentrating on things, such as reading the newspaper or watching television: not at all 8. Moving or speaking so slowly that other people could have noticed. Or the opposite - being so fidgety or restless that you have been moving around a lot more than usual: not at all Source: Developed by Drs. Rey Cabrera, Sara Piña, Farrukh Castillo and colleagues, with an educational bettye from [employer] Thrive Questionnaire Date Thrive assessed: 02/25/25 I am a: Patient Within the past 12 months, did the food you bought not last and you didn't have the money to get more?: Never true Within the past 12 months, did you worry whether your food would run out before you got money to buy more?: Never true Do you have trouble paying for medicines?: No Do you have trouble getting transportation to medical appointments?: No Do you have trouble paying your heating and electricity bill?: No Do you have trouble taking care of your child, family member or friend?: No Do you have trouble with day-to-day activities such as bathing, preparing meals, shopping, managing finances, etc.?: No Are you currently unemployed and looking for a job?: No Are you interested in more education?: No Currently or been in a relationship where the following occur: No concerns reported THRIVE Score: 0 AUDIT C Alcohol Use Questionnaire (AUDIT-C) 1. How often do you have a drink containing alcohol?: Never 3. How often do you have six or more drinks on one occasion?: Never Total Score: 0 NIRMALA-7 AMB Questionnaire NIRMALA-7 Date NIRMALA - 7 assessed: 02/25/25 Feeling nervous, anxious, or on edge: 0 = Not at all Not being able to stop or control worryin = Not at all Worrying too much about different things: 0 = Not at all Trouble relaxin = Not at all Being so restless that it is hard to sit still: 0 = Not at all Becoming easily annoyed or irritable: 0 = Not at all Feeling afraid as if something awful might happen: 0 = Not at all Total NIRMALA-7 score (0-4 normal; 5-9 mild; 10-14 moderate; 15-21 severe): 0 Source: Developed by Drs. Rey Cabrera, Sara Piña, Farrukh Castillo and colleagues, with an educational bettye from [employer] Physical exam (Primary Care) Vital Signs: Last Vital Signs Temp 97.4 F 02/25/25 13:29 Pulse 92 02/25/25 13:29 BP 130/76 02/25/25 13:29 Pulse Ox 98 02/25/25 13:29 Oxygen Delivery Method Room Air 02/25/25 13:29 BMI result Body Mass Index 18.5 Tobacco/Smoking Status: Tobacco use Status Tobacco use date assessed 02/25/25 02/25/25 13:40 Patient Tobacco Use Status Never used Tobacco 02/25/25 13:40 e-Cigarette/Vaping Use Never Used 02/25/25 13:40 Thrive Assessment: Date of Thrive Assessment Date Thrive assessed 02/25/25 02/25/25 13:40 Currently or been in a relationship where the following occur: No concerns reported Advance Care Planning discussion: Exists, not on file Date of discussion: 02/25/25 Who was present: Patient Forms completed: Health Care Proxy and MOLST Coding Level of Care Code New Pt Level 4 (06615) Complex EM visit Add On G2211 Diagnoses DM type 2 (diabetes mellitus, type 2) E11.9 Additional Codes Vital Signs *Quality* - Advance Care Planning discussion: Exists, not on file ([id number]) Assessment & Plan Assessment & Plan (1) DM type 2 (diabetes mellitus, type 2): Code(s): E11.9 - Type 2 diabetes mellitus without complications Category: Medical Plan: Insulin prescription written. BW has been ordered. Plan History of Present Illness - The patient is an 84-year-old male presenting with diabetes management concerns and medication-related issues. - Engages in regular exercise by walking indoors 15 times, four times a day. - Expresses concerns with fluctuating blood glucose levels, registering 92 mg/dL in the morning and an hygiene teacher low of 63 mg/dL. - Uses weekly Trulicity injections and three daily insulin doses, adjusting between four and twenty units based on diet. - Financial concerns arise from a generic medication switch causing increased costs against expectations. - He notes expenses of about $18,000 yearly on medications for him and his . - Reports visual challenges in night driving, noting discomfort but no visual halos. 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 Social History - Engages in home exercises, predominantly by indoor walking circuits four times daily. - Reports annual health-related costs of approximately $18,000. 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 - Habituated to living on a hill but avoids slope walks. - Drives occasionally, mainly for household needs, despite disinclination for night driving. Review of Systems - Endocrine: Reports variable blood glucose readings. - Ophthalmologic: Denies seeing halos around lights when driving at night. - Musculoskeletal: Reports engaging in indoor exercises. - Social/Environmental: Reports concerns about medication costs. Physical Exam General: Cooperative and healthy appearing Nutritional Appearance: Well nourished Orientation/consciousness: Patient oriented x3 Limitations: No limitations Head: Normal to inspection General: Appearance normal, both eyes and all related structures Neck: Normal visual inspection Chest: Normal palpation of entire chest wall Respiratory: Normal respiratory effort Neurology: Patient oriented x3 Results - Labs: Blood glucose reported as 92 mg/dL; hygiene teacher glucose noted at 63 mg/dL. Plan 1. Type 2 Diabetes Mellitus - Continue weekly injectable Trulicity. - Prescribe insulin at 10 units thrice daily, tailored between 4-20 units based on intake. - Plan for A1c evaluation to track diabetes control. - Reinforce compliance with dietary adherence and regular glucose assessments. 2. Hyperglycemia - Advise vigilant monitoring and management of blood glucose. - Stress recognizing symptoms and adjusting insulin/diet accordingly. 3. Medication Management Issues - Process medication switch back from generic variation. - Confirm dispensing through [facility] for a three-month course. 4. Vision Concerns - Provide driving guidance, particularly under low light conditions. - Observe alterations in vision or driving capacity. 5. Elevated Healthcare Costs - Discuss medication cost alleviation techniques. - Consider accessing marketing financial analyst or discounts. Discussion Notes We discussed ongoing management for the patient's Type 2 Diabetes Mellitus, including maintaining current medications such as Trulicity and adjusting insulin dosages based on dietary intake and glucose levels. Reinforcement was given on monitoring blood glucose regularly, with an emphasis on recognizing hypoglycemic events. Medication costs were highlighted, prompting plans to revert from a generic medication to an original brand where pricing is more favorable to the patient. Insulin prescriptions were to be duly addressed, ensuring a 90-day supply. The importance of visual safety while driving, particularly at night, was addressed, considering potential impacts on personal and familial logistics. Additionally, we explored ways to manage health-related expenses effectively. A follow-up on A1c testing and the necessity for routine blood count monitoring were outlined in the patient's care plan. Patient Instructions - Continue Trulicity injections weekly. - Take insulin at 10 units, three times per day. - Monitor your blood glucose daily. - Have blood tests, including an A1c, as planned. - Contact the pharmacy to ensure medications are filled correctly. - Consider ways to lower medication costs. - Drive carefully at night, and monitor any changes in vision. - Follow up with your healthcare provider as discussed. Orders: Orders Thyroid Stimulating Hormone Today E11.9 - Type 2 diabetes mellitus without complications UA and rflx microscopic Today E11.9 - Type 2 diabetes mellitus without complications Basic Metabolic Panel Today E11.9 - Type 2 diabetes mellitus without complications Complete Blood Count no Diff Today E11.9 - Type 2 diabetes mellitus without complications Microalbumin, Random (w Creat) Today E11.9 - Type 2 diabetes mellitus without complications Lipid Panel Today E11.9 - Type 2 diabetes mellitus without complications Liver Panel Today E11.9 - Type 2 diabetes mellitus without complications Hemoglobin A1c Today E11.9 - Type 2 diabetes mellitus without complications Medications: Changed From insulin lispro subcut To insulin lispro 10 units (0.1 mL) subcut TID 27 mL 1RF 90 days
--- OUTSIDE RECORDS SUMMARY | 2025-02-25 13:32 | XMS_ITS | Continuity of Care Document ---
Author Organization [facility] [address] [place] [address] Phone [phone] Care Team Providers Care Carbon Plant Grinder Name Role Phone Beny Berrios M.D. Care Team Information Receiv er [phone] Problems Active Problems Provider Date Type 2 diabetes mellitus Richard Samuel M.D. Onset: 05/10/2023 Coronary artery bypass graft Richard Samuel M.D. Onset: 05/10/2023 Chronic kidney disease stage 3 Richard Samuel M.D. Onset: 09/01/2024 Social History Type Date Description Comments Sex Unknown Tobacco Use Start: Unknown Never Smoked Cigarettes Smoking Status Reviewed: 05/10/23 Never Smoked Cigaret garry ETOH Use Never used alcohol Allergies and adverse reactions Description No Known Drug Allergies Medications Active Medications SIG Qnty Indications Order ing Provider Date [id number] Tablets 1 tablet by mouth every day 90tabs Richard Samuel M.D. 01/05/2025 Alcohol PrepPads 70% Pads use 1 alcohol pad to disinfect the are before injection dx: e11.9 500units Richard Samuel M.D. 03/05/[address] 1 by mouth every day Richard Samuel M.D. 05/10/2023 Freestyle Rosalie 3/Sensor/Glucose Monitoring [id number] Misc one sensor to skin every 10 days dx: e11.9 3units E11.9 Richard Samuel M.D. 05/10/2023 BD Pen Needle/Short/Ultra- Fine/31G X 8mm31G X 8 mm Misc use as directed 5 times daily DX: E11.9 500units E11.9 Richard Samuel M.D. Pigtioyix30bv Tablets Take 1 Tablet By Mouth Every Morning & 1 Tablet By Mouth In The Evening Beny Berrios M.D. Kiggmlnolyq32zs Tablets Take 1 Tablet By Mouth Daily. Beny Berrios M.D. Insulin Lispro (1 Unit Dial)100Unit/ML Solution Pen-Inject inject 24 units per day as directed for 90 days 45ml Richard Samuel M.D. Clopidogrel Cgqczqqra11kz Tablets Take 1 Tablet By Mouth Every Day Unknown Trulicity0.75mg/0.5 ML Solution Pen-Inject Inject 0.75 MG Subcutaneously Once Weekly. Rotate Injection Sites. Beny Berrios M.D. Metoprolol Succinate ER25mg Tablets ER 24HR Take 1 Tablet By Mouth Every Day Unknown Tamsulosin HCL0.4mg Capsules 1 cap by mouth every night 90caps Beny Berrios M.D. Atorvastatin Ddisrpd92lw Tablets Take 1 Tablet By Mouth Every Day AT Bedtime Unknown Vital Signs Date Vital Result Comment 01/05/2025 9:32am BP Systolic 130 mmHg BP Diastolic 70 mmHg Heart Rate 72 /min Height 68 inches 5'8 Weight 128.12 lb BMI (Body Mass Index) 19.5 kg/m2 Results Test Acquired Date Facility Test Result H/L Range N ote Hemoglobin A1c 01/05/2025 Inhouse Hemoglobin A1c 7.8% Glucose Fingerstick 01/05/2025 Inhouse Glucose Fingerstick 204 Hemoglobin A1c 09/01/2024 Inhouse Hemoglobin A1c 7.7% Glucose Fingerstick 09/01/2024 Inhouse Glucose Fingerstick 268 Hemoglobin A1c 05/22/2024 Inhouse Hemoglobin A1c 7.8% Glucose Fingerstick 05/22/2024 Inhouse Glucose Fingerstick 171 Hemoglobin A1c 02/14/2024 Inhouse Hemoglobin A1c 7.2% Glucose Fingerstick 02/14/2024 Inhouse Glucose Fingerstick 148 Hemoglobin A1c 11/01/2023 Inhouse Hemoglobin A1c 7.1% Glucose Fingerstick 11/01/2023 Inhouse Glucose Fingerstick 127 Hemoglobin A1c 08/01/2023 Inhouse Hemoglobin A1c 7.0% Glucose Fingerstick 08/01/2023 Inhouse Glucose Fingerstick 120 Glucose Fingerstick 06/14/2023 Inhouse Glucose Fingerstick 113 Hemoglobin A1c 05/10/2023 Inhouse Hemoglobin A1c 7.4% Glucose Fingerstick 05/10/2023 Inhouse Glucose Fingerstick 153 Procedures Date Code Description Status 02/14/2024 95698 Glucose Monitoring Interpeta tion And Report Completed Medical Devices Description No Information Available Encounters Type Date Location Provider Dx Diagnosis Office Visit 01/05/2025 9:15a Main Office Richard Samuel M.D. E11.9 Type 2 diabetes mellitus without complications Assessments Date Code Description Provider 01/05/2025 E11.9 Type 2 diabetes mellitus without complications Richard Samuel M.D. Plan of Treatment Future Appointment(s):* 05/14/2025 9:15 am - Richard Samuel M.D. at Main Office 01/05/2025 - Richard Samuel M.D.* E11.9 Type 2 diabetes mellitus without complications * Functional Status Description No Information Available Mental Status Description No Information Available Referrals Description No Information Available
== END 2025-02-25 13:57 | disposition home or self-care (01) ==
LOC: HO.HMCHD 13:17
PROVIDERS: PCP Internal Medicine; Visit Provider Internal Medicine
DX: E11.9 Type 2 diabetes mellitus without complications (principal); Z00.00 Encounter for general adult medical examination without abnormal findings

== ENCOUNTER → 2025-02-25 13:17 | Outpatient (BNVA) | payer MEDICARE, BC, SELFPAY ==
[2023-04-05 14:09] VITALS: BP 114/54; BP 134/64; BP 144/80; BMI 18.7
== END ==
PROVIDERS: PCP Internal Medicine; Visit Provider Internal Medicine
DX: E11.9 Type 2 diabetes mellitus without complications (principal)
CPT/HCPCS: 99202

== ENCOUNTER 2025-02-27 06:05 | Outpatient (REF) | payer MEDICARE, BC, SELFPAY ==
[2023-04-05 14:09] VITALS: BP 114/54; BP 134/64; BP 144/80; BMI 18.7
[2025-02-27 10:30] LABS: Hemoglobin 15.6 g/dl (14.0-18.0); Mean Corpuscular HGB Conc 33.2 g/dl (31.0-36.0); Mean Corpuscular Hemoglobin 31.1 pg (27.0-33.0); Mean Corpuscular Volume 93.6 fL (80.0-98.0); Mean Platelet Volume 11.4 fL (9.4-12.4); Platelet Count 118 X10*3/uL (160-400); Red Blood Count 5.02 X10*6/uL (4.60-5.80); Red Cell Distribution Width 13.3 % (11.0-16.0); White Blood Count 5.6 X10*3/uL (4.8-10.8)
[2025-02-27 10:43] LABS: Appearance Urine Clear; Color Urine Yellow; Glucose Urine UA >=1000 mg/dL (Negative); Leukocyte Esterase Urine Negative (Negative); Nitrite Urine Negative (Negative); PH 5.5 (5.0-9.0); Specific Gravity - Urine >= 1.030 (1.005-1.025); UMIC TRIGGER UA YES; Urine Blood Negative (Negative); Urine Ketones Negative (Negative); Urine Protein 30 (1+) mg/dL (Neg-Trace)
[2025-02-27 10:50] LABS: Bacteria Urine None Seen (None Seen); Hyaline Casts Urine 0-2 /LPF (0-2); RBC Urine 0-2 /HPF (0-2); Squamous Epithelial Cell Urine 0-2 /HPF (0-2); WBC Urine 0-5 /HPF (0-5)
[2025-02-27 11:05] LABS: Alanine Aminotransferase 50 U/L (0-40); Anion Gap 14 (12-20); Aspartate Amino Transferase 53 U/L (5-37); Bilirubin Direct 0.3 mg/dL (0.0-0.5); Bilirubin Total 0.7 mg/dL (0.0-1.0); Blood Urea Nitrogen 42 mg/dL (9-16); Calcium 8.9 mg/dL (8.4-10.2); Carbon Dioxide 25 mmol/L (22-29); Chloride 109 mmol/L (96-108); Cholesterol 141 mg/dL (<200); Estimated Average Glucose 186 mg/dL; Estimated Glomerular Filt Rate 43; Glucose Random 140 mg/dL (60-115); HDL Cholesterol 56 mg/dL (>40); Hemoglobin A1c % 8.1 % (<6.0); LDL Cholesterol Calculated 73 mg/dL (<100); Potassium 5.4 mmol/L (3.3-5.1); Sodium 143 mmol/L (135-145); Total Hemoglobin (HGBA1C) 4084.3051 umol/L; Total Protein 6.6 g/dL (6.5-8.0); Triglycerides 62 mg/dL (<150)
[2025-02-27 11:11] LABS: Thyroid Stimulating Hormone 1.62 uIU/mL (0.32-4.0)
[2025-02-27 12:01] LABS: Alkaline Phosphatase 117 U/L (39-117)
[2025-02-27 12:23] LABS: Creatinine Urine 83.17 mg/dL; Microalbum/Creatinine Ratio Ur 304.1 ug/mg cr (<30)
== END 2025-02-27 06:06 | disposition home or self-care (01) ==
LOC: HO.HMGCLDS 06:05
PROVIDERS: PCP Internal Medicine; Referring Provider Internal Medicine Nephrology; Visit Provider Internal Medicine
DX: E11.9 Type 2 diabetes mellitus without complications (principal)
CPT/HCPCS: 36415; 80048; 80061; 80076; 81001; 82043; 82570; 83036; 84443; 85027

== ENCOUNTER 2025-03-11 10:56 | Outpatient (AMB) | payer MEDICARE, BC, SELFPAY ==
[2023-04-05 14:09] VITALS: BP 114/54; BP 134/64; BP 144/80; BMI 18.7
--- NOTE | 2025-03-11 10:03 | A.OFFPC_ITS ---
Vital Signs 03/11/25 10:04 Height 5 ft 8 in Intake Visit Reasons: review lab Corporate Investigator Required: No Accompanied by: Self / Same As Patient Allergies dogs and cats Allergy (Mild, Uncoded 03/11/25 12:44) Unknown year round seasonal Allergy (Unknown, Uncoded 03/11/25 12:44) Unknown Medication List - Last Reconciled 03/11/25 by Miah Handley MD aspirin 81 mg PO DAILY atorvastatin 80 mg PO DAILY carvedilol 1 tab PO BID@0400,1600 dapagliflozin propanediol (Farxiga) 10 mg PO DAILY dulaglutide (Trulicity) 0.75 mg (0.5 mL) subcut QWEEK glipizide 10 mg PO DAILY insulin lispro 10 units (0.1 mL) subcut TID 90 days tamsulosin 1 cap PO BEDTIME Tobacco use date assessed: 03/11/25 Fall risk assessment: No Falls in past year Last assessed Fall Risk: 03/11/25 Dental Screening Dental Screen Date: 02/25/25 Did you have a dental visit in the last 12 months?: Yes Did you have a dental problem in the last 6 months where you did not have access to dental care?: No HPI review lab HPI Details 84-year-old male wishes to discuss his [facility] health via [facility]. After his last visit, patient had routine blood work done. The results showed worsening of his A1c. His kidney functions also show that his serum creatinine is elevated. Patient reports that despite the dosage mentioned in the list, he only takes 4 units of insulin 3 times a day. He is compliant with Trulicity and glipizide. Patient has noticed that his blood sugars is more than 200 after a meal. [facility] Medical History Chronic kidney insufficiency Hyperkalemia Diabetes Surgical History History of colonoscopy (~12/04/18) Family History Mother No problems noted. Father No problems noted. Social History Household Members: Spouse Housing: House Do you presently have visiting nurse or other home services: Yes (meals on wheels) Alcohol intake: never Comment: rings appropriately, 1 assist with walker Patient Tobacco Use Status: Never used Tobacco e-Cigarette/Vaping Use: Never Used service: No Current occupational status: retired Cognitive needs: Yes (cane) Hearing needs: Yes (bilateral hearing aids.) Vision needs: No Questionnaire PHQ-9 Over the last 2 weeks, how often have you been bothered by any of the following problems? 1. Little interest or pleasure in doing things: not at all 2. Feeling down, depressed, or hopeless: not at all 3. Trouble falling or staying asleep, or sleeping too much: not at all 4. Feeling tired or having little energy: not at all 5. Poor appetite or overeating: not at all 6. Feeling bad about yourself - or that you are a failure or have let yourself or your family down: not at all 7. Trouble concentrating on things, such as reading the newspaper or watching television: not at all 8. Moving or speaking so slowly that other people could have noticed. Or the opposite - being so fidgety or restless that you have been moving around a lot more than usual: not at all 9. Thoughts that you would be better off or of hurting yourself in some way: not at all Total score: 0 Source: Developed by Drs. Rey Cabrera, Sara Piña, Farrukh Castillo and colleagues, with an educational bettye from [employer]. Thrive Questionnaire Date Thrive assessed: 03/11/25 I am a: Patient Within the past 12 months, did the food you bought not last and you didn't have the money to get more?: Never true Within the past 12 months, did you worry whether your food would run out before you got money to buy more?: Never true Do you have trouble paying for medicines?: No Do you have trouble getting transportation to medical appointments?: No Do you have trouble paying your heating and electricity bill?: No Do you have trouble taking care of your child, family member or friend?: No Do you have trouble with day-to-day activities such as bathing, preparing meals, shopping, managing finances, etc.?: No Are you currently unemployed and looking for a job?: No Are you interested in more education?: No THRIVE Score: 0 AUDIT C Alcohol Use Questionnaire (AUDIT-C) 1. How often do you have a drink containing alcohol?: Never 3. How often do you have six or more drinks on one occasion?: Never Total Score: 0 NIRMALA-7 AMB Questionnaire NIRMALA-7 Date NIRMALA - 7 assessed: 03/11/25 Feeling nervous, anxious, or on edge: 0 = Not at all Not being able to stop or control worryin = Not at all Worrying too much about different things: 0 = Not at all Trouble relaxin = Not at all Being so restless that it is hard to sit still: 0 = Not at all Becoming easily annoyed or irritable: 0 = Not at all Feeling afraid as if something awful might happen: 0 = Not at all Total NIRMALA-7 score (0-4 normal; 5-9 mild; 10-14 moderate; 15-21 severe): 0 Source: Developed by Drs. Rey Cbarera, Sara Piña, Farrukh Castillo and colleagues, with an educational bettye from [employer]. Physical exam (Primary Care) Tobacco/Smoking Status: Tobacco use Status Tobacco use date assessed 03/11/25 03/11/25 10:05 Patient Tobacco Use Status Never used Tobacco 03/11/25 10:05 e-Cigarette/Vaping Use Never Used 03/11/25 10:05 PHQ-9: PHQ-9 Score PHQ-9: Total score 0 03/11/25 10:05 Thrive Assessment: Date of Thrive Assessment Date Thrive assessed 03/11/25 03/11/25 10:05 Telehealth Telehealth Telehealth [facility]: [facility] Location of provider rendering services: practice address Location of patient: address on file Patient Identification confirmed using: Name, : Yes Telehealth method: voice only Patient verbally consented to treatment: Yes Patient verbally consented to billing insurance company: Yes Patient informed of any privacy concerns related to visit: Yes Minutes spent on Phone/Video with Pt.: 15 Coding Level of Care Code Est Pt Level 4 (08984) Complex EM visit Add On G2211 Diagnoses DM type 2 (diabetes mellitus, type 2) E11.9 Assessment & Plan Assessment & Plan (1) DM type 2 (diabetes mellitus, type 2): Code(s): E11.9 - Type 2 diabetes mellitus without complications Category: Medical Plan: I advised the patient to take the insulin at dosages prescribed. To take 10 units 3 times a day. Continue other medications.
--- OUTSIDE RECORDS SUMMARY | 2025-03-11 12:37 | XMS_ITS | Continuity of Care Document ---
Author Organization [facility] [address] [place] [address] Phone [phone] Care Team Providers Care Health Care Attorney Name Role Phone Beny Berrios M.D. Care Team Information Receiv er [phone] Problems Active Problems Provider Date Type 2 diabetes mellitus Richard Samuel M.D. Onset: 05/10/2023 Coronary artery bypass graft Richard Samuel M.D. Onset: 05/10/2023 Chronic kidney disease stage 3 Richard Samuel M.D. Onset: 09/01/2024 Social History Type Date Description Comments Sex Male Sex Unknown Tobacco Use Start: Unknown Never Smoked Cigarettes Smoking Status Reviewed: 05/10/23 Never Smoked Cigaret garry ETOH Use Never used alcohol Allergies and adverse reactions Description No Known Drug Allergies Medications Active Medications SIG Qnty Indications Order ing Provider Date Vxkkcnh22ok Tablets 1 tablet by mouth every day 90tabs Richard Samuel M.D. 01/05/2025 Alcohol PrepPads 70% Pads use 1 alcohol pad to disinfect the are before injection dx: e11.9 500units Richard Samuel M.D. 03/05/[address] 1 by mouth every day Richard Samuel M.D. 05/10/2023 Freestyle Rosalie 3/Sensor/Glucose Monitoring Dmnksg2Vvgrqa Misc one sensor to skin every 10 days dx: e11.9 3units E11.Yvan Samuel M.D. 05/10/2023 BD Pen Needle/Short/Ultra- Fine/31G X 8mm31G X 8 mm Misc use as directed 5 times daily DX: E11.9 500units E11.9 Richard Samuel M.D. Ttthbitnd67pu Tablets Take 1 Tablet By Mouth Every Morning & 1 Tablet By Mouth In The Evening Beny Berrios M.D. Xhxlvidgiiy86xl Tablets Take 1 Tablet By Mouth Daily. Beny Berrios M.D. Insulin Lispro (1 Unit Dial)100Unit/ML Solution Pen-Inject inject 24 units per day as directed for 90 days 45ml Richard Samuel M.D. Clopidogrel Mgqrogiyw05at Tablets Take 1 Tablet By Mouth Every Day Unknown Trulicity0.75mg/0.5 ML Solution Pen-Inject Inject 0.75 MG Subcutaneously Once Weekly. Rotate Injection Sites. Beny Berrios M.D. Metoprolol Succinate ER25mg Tablets ER 24HR Take 1 Tablet By Mouth Every Day Unknown Tamsulosin HCL0.4mg Capsules 1 cap by mouth every night 90caps Beny Berrios M.D. Atorvastatin Ovlknvx33kt Tablets Take 1 Tablet By Mouth Every [...] 153 Procedures Date Code Description Status 02/14/2024 22561 Glucose Monitoring Interpeta tion And Report Completed [...]
== END 2025-03-11 11:45 | disposition home or self-care (01) ==
LOC: HO.HMCHD 10:56
PROVIDERS: PCP Internal Medicine; Visit Provider Internal Medicine
DX: E11.9 Type 2 diabetes mellitus without complications (principal)

== ENCOUNTER → 2025-03-11 10:56 | Outpatient (BNVA) | payer MEDICARE, BC, SELFPAY ==
[2023-04-05 14:09] VITALS: BP 114/54; BP 134/64; BP 144/80; BMI 18.7
== END ==
PROVIDERS: PCP Internal Medicine; Visit Provider Internal Medicine
DX: E11.9 Type 2 diabetes mellitus without complications (principal)
CPT/HCPCS: 99212

== ENCOUNTER 2025-03-13 09:22 | Outpatient (AMB) | payer MEDICARE, BC, SELFPAY ==
[2023-04-05 14:09] VITALS: BP 114/54; BP 134/64; BP 144/80; BMI 18.7
--- NOTE | 2025-03-13 09:31 | HO.NEPHOV_ITS ---
Vital Signs 03/13/25 09:33 Height 5 ft 8 in Weight 122 lb 2 oz BMI 18.6 BP 116/80 Blood Pressure Location Rt brachial Position Sitting Pulse 80 Pulse Source Pulse Oximeter Pulse Oximetry (%) 93 Oxygen Delivery Method Room Air Intake Visit Reasons: CKD-Conf Community Health Specialist Required: No Accompanied by: Self / Same As Patient Allergies dogs and cats Allergy (Mild, Uncoded 03/11/25 12:44) Unknown year round seasonal Allergy (Unknown, Uncoded 03/11/25 12:44) Unknown HPI Comments Details: I had the privilege of seeing Mango in follow-up of his hypertension as well as chronic kidney disease. He is a diabetic. His HbA1c is marginally worse. He is on Farxiga. His serum creatinine is better. He had history of coronary artery bypass grafting . He denies nausea, vomiting, diarrhea, shortness of breath, proximal nocturnal dyspnea, orthopnea, pedal edema or urinary symptoms. He has not been taking any nonsteroidal anti-inflammatory medications. 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 His serum K has been high normal inspite of taking Kionex 3 times a week COUNT INCLUDES THE [facility] Medical History (Updated 03/13/25 @ 09:43 by Maxi Griffiths MD) Chronic kidney insufficiency Hyperkalemia Diabetes Surgical History History of colonoscopy (~12/04/18) Family History Mother No problems noted. Father No problems noted. Social History Household Members: Spouse Housing: House Do you presently have visiting nurse or other home services: Yes (meals on wheels) Alcohol intake: never Comment: rings appropriately, 1 assist with walker Patient Tobacco Use Status: Never used Tobacco e-Cigarette/Vaping Use: Never Used service: No Current occupational status: retired Cognitive needs: Yes (cane) Hearing needs: Yes (bilateral hearing aids.) Vision needs: No Review of Systems Const All systems reviewed & are unremarkable except as noted in HPI and below Physical Exam Vital Signs: Last Vital Signs Pulse 80 03/13/25 09:33 BP 116/80 03/13/25 09:33 Pulse Ox 93 03/13/25 09:33 Oxygen Delivery Method Room Air 03/13/25 09:33 BMI result Body Mass Index 18.6 Const General: comfortable and no acute distress Orientation/consciousness: patient oriented x3 HEENT Head: Yes normocephalic Mouth: Normal oral and palatal mucosa present Eyes EOM: EOMs intact bilaterally Neck Neck: Yes supple Resp Auscultation: clear to auscultation bilaterally Cardio Jugular venous distension: no JVD Rate: regular rate GI Palpation (GI): Soft to palpation Auscultation: normal bowel sounds General: Yes no CVA tenderness Back/Spine/Pelvis Back: no CVA tenderness Skin General skin exam: no rashes or lesions noted Neuro General: patient oriented x3 and moves all extremities Extrem General: Yes no pedal edema Results Reviewed Nephrology Results: Hgb, (14.0-18.0) 15.6 g/dl 02/27/25 WBC, (4.8-10.8) 5.6 X10*3/uL 02/27/25 Plt Count, (160-400) 118 X10*3/uL L 02/27/25 Sodium, (135-145) 143 mmol/L 02/27/25 Potassium, (3.3-5.1) 5.4 mmol/L H 02/27/25 Chloride, (96-108) 109 mmol/L H 02/27/25 Carbon Dioxide, (22-29) 25 mmol/L 02/27/25 BUN, (9-16) 42 mg/dL H 02/27/25 Creatinine, (0.5-1.4) 1.54 mg/dL H 02/27/25 Calcium, (8.4-10.2) 8.9 mg/dL Δ 02/27/25 Urine Protein, (Neg-Trace) 30 (1+) mg/dL H 02/27/25 Urine Creatinine 83.17 mg/dL 02/27/25 Assessment & Plan Assessment & Plan (1) Hypertension: Code(s): I10 - Essential (primary) hypertension Category: Medical Qualifiers: Hypertension type: primary hypertension Qualified Code(s): I10 - Essential (primary) hypertension (2) CKD (chronic kidney disease) stage 4, GFR 15-29 ml/min: Code(s): N18.4 - Chronic kidney disease, stage 4 (severe) Category: Medical (3) Hyperkalemia: Code(s): E87.5 - Hyperkalemia Category: Medical Plan Mango has CKD stage 4. Her renal functions are stable. His serum K is high. He is on Kionex 3 times a week which I may increase to 4 times a week if his K remains high. His Hb A1c needs to be better. His blood pressure is at goal. His volume status is optimal. He is on Farxiga. He is not on any MEI inhibitor or ARB. His urine output is good. He avoids nonsteroidal anti-inflammatory medications and tries to keep himself well hydrated. I have not made any medication changes today. Follow up labs ordered. All his questions were answered Orders: Orders Creatinine 3 Months I10 - Essential (primary) hypertension, N18.4 - Chronic ki dney disease, stage 4 (severe) Blood Urea Nitrogen 3 Months I10 - Essential (primary) hypertension, N18.4 - Chronic kidney disease, stage 4 (severe) Electrolytes 3 Months I10 - Essential (primary) hypertension, N18.4 - Chronic kidney disease, stage 4 (severe) Electrolytes 6 Weeks E87.5 - Hyperkalemia, I10 - Essential (primary) hypertension, N18.4 - Chronic kidney disease, stage 4 (severe) Blood Urea Nitrogen 6 Weeks E87.5 - Hyperkalemia, I10 - Essential (primary) hypertension, N18.4 - Chronic kidney disease, stage 4 (severe) Creatinine 6 Weeks E87.5 - Hyperkalemia, I10 - Essential (primary) hypertension, N18.4 - Chronic kidney disease, stage 4 (severe) Coding Level of Care Code Est Pt Level 4 (78038) Diagnoses Primary hypertension I10 Hypertension type: primary hypertension CKD (chronic kidney disease) stage 4, GFR 15-29 ml/min N18.4 Hyperkalemia E87.5
[2025-03-13 09:33] VITALS: BP 116/80; PULSE 80; O2SAT 93; BMI 18.6
--- OUTSIDE RECORDS SUMMARY | 2025-03-13 09:41 | XMS_ITS | Continuity of Care Document ---
Author Organization [facility] [address] [place] [address] Phone [phone] Care Team Providers Care Heavy Duty Mechanic Farm Equipment Name Role Phone Beny Berrios M.D. Care Team Information Receiv er [phone] Problems Active Problems Provider Date Type 2 [...] SIG Qnty Indications Order ing Provider Date Ljyqnxq01ku Tablets 1 tablet by mouth every day 90tabs Richard Samuel M.D. 01/05/2025 Alcohol PrepPads 70% Pads use 1 alcohol pad to disinfect the are before injection dx: e11.9 500units Richard Samuel M.D. 03/05/[address] 1 by mouth every day Richard Samuel M.D. 05/10/2023 Freestyle Rosalie 3/Sensor/Glucose Monitoring [id number] Misc one sensor to skin every 10 days dx: e11.9 3units E11.Yvan Samuel M.D. 05/10/2023 BD Pen Needle/Short/Ultra- Fine/31G X 8mm31G X 8 mm Misc use as directed 5 times daily DX: E11.9 500units E11.9 Richard Samuel M.D. Aqmungqvh43yh Tablets Take 1 Tablet By Mouth Every Morning & 1 Tablet By Mouth In The Evening Beny Berrios M.D. Jhoxhfzrzvn41bo Tablets Take 1 Tablet By Mouth Daily. Beny Berrios M.D. Insulin Lispro (1 Unit Dial)100Unit/ML Solution Pen-Inject inject 24 units per day as directed for 90 days 45ml Richard Samuel M.D. Clopidogrel Mqlpryexl54ar Tablets Take 1 Tablet By Mouth Every Day Unknown Trulicity0.75mg/0.5 ML Solution Pen-Inject Inject 0.75 MG Subcutaneously Once Weekly. Rotate Injection Sites. Beny Berrios M.D. Metoprolol Succinate ER25mg Tablets ER 24HR Take 1 Tablet By Mouth Every Day Unknown Tamsulosin HCL0.4mg Capsules 1 cap by mouth every night 90caps Beny Berrios M.D. Atorvastatin Whchcol94xk Tablets Take 1 Tablet By Mouth Every [...] 153 Procedures Date Code Description Status 02/14/2024 28946 Glucose Monitoring Interpeta tion And Report Completed [...]
== END 2025-03-13 09:50 | disposition home or self-care (01) ==
LOC: HO.HKA 09:23
PROVIDERS: PCP Internal Medicine; Visit Provider Internal Medicine Nephrology
DX: I12.9 Hypertensive chronic kidney disease with stage 1 through stage 4 chronic kidney disease, or unspecified chronic kidney disease (principal); N18.4 Chronic kidney disease, stage 4 (severe); E87.5 Hyperkalemia
CPT/HCPCS: 99214

== ENCOUNTER → 2025-03-13 09:22 | Outpatient (BNVA) | payer MEDICARE, BC, SELFPAY ==
[2023-04-05 14:09] VITALS: BP 114/54; BP 134/64; BP 144/80; BMI 18.7
== END ==
PROVIDERS: PCP Internal Medicine; Visit Provider Internal Medicine Nephrology
DX: I12.9 Hypertensive chronic kidney disease with stage 1 through stage 4 chronic kidney disease, or unspecified chronic kidney disease (principal); N18.4 Chronic kidney disease, stage 4 (severe); E87.5 Hyperkalemia
CPT/HCPCS: 99212

== ENCOUNTER 2025-04-14 06:08 | Outpatient (REF) | payer MEDICARE, BC, SELFPAY ==
[2023-04-05 14:09] VITALS: BP 114/54; BP 134/64; BP 144/80; BMI 18.7
--- OUTSIDE RECORDS SUMMARY | 2025-04-14 06:11 | XMS_ITS | Clinical Summary ---
Author Organization [facility] Address [address] [place] [address] Phone Care Team Providers Care Sole Painter Name Role Phone Beny Berrios MD Primary Care Provider [phone] Allergies Active Allergy Reactions Criticality Noted Date [...] tuberculosis 12/14/2021 12/14/2021 Hypercholesterolemia 12/14/2021 022 Immunizations Immunization Administration Dates Next Due Influenza Split High Dose Pr eservative Free IM 07/13/2018 Moderna SARS-COV-2 04/17/2022 Pfizer SARS-COV-2 07/07/2021,11/24/2020,11/03/19 21 Pneumococcal Conjugate 13-Valent 06/18/2017 Pneumococcal Polysaccharide 06/27/2018 Shingrix 06/27/2018 Family History Medical History Relation Comments Diabetes Mother Heart disease Mother NM Relation Status Comments Father Mother Social History [...] Hemoglobin A1C 12/19/2022 09/20/2022 Influenza Vaccine (#1) 2025 07/13/2018 Pneumococcal Vaccine: 50+ Years Completed 06/27/2018, 06/18/2017 Pneumococcal Vaccine: Peds ( 0 to 5 Years) and At-Risk Patients (6 to 49 Years) Discontinued 06/27/2018, 06/18/2017 Hepatitis B Vaccine Aged Out [...] EST) Hemoglobin A1C 9.9 % NEVIN Comment: Hemoglobin A1C Reference Range Adults: 4.8 - 6.0 % Non diabetic: < 6.0 % Goal: < 7.0 % Additional Action Suggested: > 8.0 % Note: Hemoglobin A1c results are invalid for patients with abnormal amounts of HbF. Blood transfusions may impact the HbA1c concentration in the patient sample. Estimated Average Glucose 237 mg/dL NEVIN Comment: eAG = Estimated average glucose which is %A1C expressed as average glucose, using the formula of the [id number] Average Glucose study (ADAG), Diabetes Care, Vol.31,#8, Apr. 2007 Blood specimen (specimen) Venous blood / Unknown 09/20/2022 2:50 PM EST 09/20/2022 2:50 PM EST us Maxi Griffiths MD LAB BLOOD ORDERABLES Final Resul t [place] from Last 3 Months or Most Recently Relevant to Health Maintenance Insurance Medicare [facility] Medicare [facility] Care Teams Sole Painter Relationship Specialty Start Date End Date Beny Berrios MD [address] [place] PCP - General 10/04/20
--- OUTSIDE RECORDS SUMMARY | 2025-04-14 06:11 | XMS_ITS | Encounter Summary ---
Author Organization [facility] Address [address] [place] [address] [place] [address] Phone Care Team Providers Care Power Saw Mechanic Name Role Phone Beny Berrios MD Primary Care Provider Reason for Referral * MRI/CAT Scan - Closed Specialty Diagnoses / Procedures Referred By Contfrancisco lopes Referred To Contact Radiology Diagnoses Abnormal electrocardiogram Procedures NC Myocardial Perfusion Stress Single NC Myocardial Perfusion Exercise Multiple Alison Wayne NP Phone: tel: Referral ID Status Reason Start Date Expiration Date Visits Re quested Visits Authorized [id number] Closed 11/05/2018 11/05/2019 1 1 Encounter Details Date Type Department Care Team (Latest Contact Info) Description 12/06/2018 Ancillary Orders [facility] [address] [place] [address] [address], [address] [place] [address] Alison Wayne NP [address] [facility] [address] [place] [address] Abnormal electrocardiogram Social History Tobacco Use Types Packs/Day Years Used Date Smoking Tobacco: Never Smokeless Tobacco: Never Sex and Gender Information Value Date Recorded Sex Assigned at Not on file Legal Sex Male 6:19 PM EST Gender Identity Not on file Sexual Orientation Not on file documented as of this encounter Plan of Treatment Upcoming Encounters Date Type Department Care Team (Late st Contact Info) Description 02/05/2025 Procedure Pass [facility] [address] [place] [address] 07/06/2025 12:30 PM EDT Appointment [facility] [address] [place] [address] Sathish Matthews MD [address], [address] [place] [address] [email or web address] 08/12/2025 8:20 AM EST Office Visit [facility] [address], [address] [place] [address] Sathish Matthews MD [address], [address] [place] [address] [email or web address] documented as of this encounter Results * NC Myocardial Perfusion Stress Single (12/06/2018 11:40 AM EDT) Nuc Stress EF 48 % LV Systolic Volume Index 32 mL/m2 LV Diastolic Volume Index 62 mL/m2 Anatomical Region Laterality Modality Heart Ultrasound Narrative 12/10/2018 2:06 PM EDT Normal study. There is no evidence of myocardial infarction or ischemia. Normal LV size and function with no regional wall motion abnormalities. Very low likelihood of hemodynamically significant coronary artery disease. Low risk study for myocardial events or cardiac in the next two years. Nuclear Study Quality Overall image quality is good. TYPE OF STUDY: Myocardial Perfusion Imaging after exercise utilizing a standard Roel protocol with gated SPECT. PROTOCOL USED: One day stress protocol only in the supine and prone position. Images were obtained after 20 minutes in gated tomographic technique. Images were processed in SPECT format, reconstructed tomographically and compared [id number] in short axis, horizontal long axis and vertical long axis. DOSE: Technetium 99m Sestamibi 12.5 mCi injected intravenously during stress on 12/06/2018 with post injection scan time of 20 minutes.. Study was gated successfully. Perfusion Defect The Lung Heart Ratio is .24. Response to Stress BMI: 19.31 Pt exercised for 6:58 min on a ROEL protocol achieving 9.9 METS. TEst terminated due to fatigue. Baseline resting HR was 93. Max heart rate achieved was 150 bpm which represents 104% of the MPHR. 1. EKG - Baseline EKG showed normal sinus rhythm with nonspecific ST-T wave abnormalities which worsened when the patient stood up. During exercise, there were 0.[address] depressions and T wave inversions in the inferolateral leads. 2. SYMPTOMS -no chest pain 3. EXERCISE PHYSIOLOGY -normal blood pressure response to exercise. Normal functional capacity for age. 4. ARRHYTHMIAS -occasional PVCs noted Conclusion -equivocal stress test with slight EKG changes with exercise In the setting of abnormal baseline. Nuclear images pending and will be reported separately. See attached stress report for full details. Rolando Man COMMUNICATION CENTER OPERATOR . Stress Function Comments Post-stress ejection fraction was 48%. Stress end diastolic index: 62 mL/m2. Stress end systolic index: 32 mL/m2. Nuclear Prior Study There is no prior study available for comparison. Perfusion Scoring Stress Summed Score: 0 Percent Normal: 0.00% The left ventricular perfusion is normal. us Alison Wayne COMMUNICATION CENTER OPERATOR CV NM CARDIAC Final Result documented in this encounter Visit Diagnoses Diagnosis Ventricular ectopy- Primary Other premature beats Abnormal electrocardiogram Nonspecific abnormal electrocardiogram (ECG) (EKG) Abnormal electrocardiogram Nonspecific abnormal electrocardiogram (ECG) (EKG) documented in this encounter Care Teams Power Saw Mechanic Relationship Specialty Start Date End Date Beny Berrios MD [address] [place] [address] [place] [address] PCP - General Internal Medicine 07/02/18 documented as of this encounter Additional Source Comments The information contained in this document represents components of the legal health record. It is not the complete legal health record.[facility]
--- OUTSIDE RECORDS SUMMARY | 2025-04-14 06:11 | XMS_ITS | Patient Health Record ---
Author Organization [facility] Address [address] [place] [address] Care Team Providers Care Agriscience Instructor Name Role Phone Agustina (RETIRED) Beny SUN Primary Care Provide r Unavailable Stevo Beaver Jr Unavailable Reason For Referral No Information Medications Medication SIG (Take, Route, Frequency, Duration) Notes Start Date End Date Status Tamsulosin HCl 0.4 MG 1 capsule Orally O nce a day Active Omeprazole 20 MG 1 capsule Orally Onc e a day Active Carvedilol 3.125 MG 1 Orally BID Active Sodium Polystyrene Sulfonate - 4 level tsp in water as directed twice a week Active metFORMIN HCl 500 MG 1 tablet with a deng l Orally twice a day Active Colyte with Flavor Packs 240 GM As directed Orally Over the specified time. for 1 day(s) Active Simvastatin 40 MG 1 tablet in the even ing Orally Once a day Active glipiZIDE 10 MG 1 tablet Orally twic e a day Active Immunizations Vaccine Route Administration Date Status Comme nts Influenza Unknown 06/25/2018 Administered Social History Tobacco Use: Social History Observation Description Date Details (start date - stop date) Never Smoker NA - NA Tobacco Use/Smoking Question Answer Notes Patient is a nonsmoker Alcohol Screen Question Answer Notes Did you have a drink contain ing alcohol in the past year? Yes How often did you have a dri nk containing alcohol in the past year? Monthly or less (1 point) How many drinks did you have on a typical day when you were drinking in the past year? 1 or 2 drinks (0 point) How often did you have 6 or more drinks on one occasion in the past year? 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 (Z79.84) Active confirmed Problem 14056362 Hypertension, unspecified type (I10) Active confirmed Plan Of Treatment Future Test Test Name Order Date COLONOSCOPY 08/14/2018 Insurance Providers Payer Name Payer Address Payer Phone Subscriber Number Group Number Insured Name Patient Relationship to Insured Coverage Start Date Coverage End Date MEDICARE OF [place] [address] [place] [address] [id number] MOHAMUD CASSIDY Self - patient is the insured [facility] [address] [place], [place] [id number] MOHAMUD CASSIDY Self - patient is the insured Medical (General) History Medical History History ICD Code hypertension diabetes mellitus TB gastroesophageal reflux disease Surgical History Surgery Date(Month/Year) deviated septum repair 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
[2025-04-14 10:47] LABS: Anion Gap 13 (12-20); Blood Urea Nitrogen 38 mg/dL (9-16); Carbon Dioxide 25 mmol/L (22-29); Chloride 109 mmol/L (96-108); Estimated Glomerular Filt Rate 45; Potassium 4.8 mmol/L (3.3-5.1); Sodium 142 mmol/L (135-145)
== END 2025-04-14 06:09 | disposition home or self-care (01) ==
LOC: HO.HMGCLDS 06:08
PROVIDERS: PCP Internal Medicine; Visit Provider Internal Medicine Nephrology
DX: I12.9 Hypertensive chronic kidney disease with stage 1 through stage 4 chronic kidney disease, or unspecified chronic kidney disease (principal); N18.4 Chronic kidney disease, stage 4 (severe); E87.5 Hyperkalemia
CPT/HCPCS: 36415; 80051; 82565; 84520

== ENCOUNTER 2025-06-10 06:03 | Outpatient (REF) | payer MEDICARE, BC, SELFPAY ==
[2023-04-05 14:09] VITALS: BP 114/54; BP 134/64; BP 144/80; BMI 18.7
[2025-06-10 10:45] LABS: Anion Gap 13 (12-20); Blood Urea Nitrogen 39 mg/dL (9-16); Carbon Dioxide 24 mmol/L (22-29); Chloride 109 mmol/L (96-108); Estimated Glomerular Filt Rate 41; Potassium 4.9 mmol/L (3.3-5.1); Sodium 141 mmol/L (135-145)
== END 2025-06-10 06:04 | disposition home or self-care (01) ==
LOC: HO.HMGCLDS 06:03
PROVIDERS: Visit Provider Internal Medicine Nephrology
DX: I12.9 Hypertensive chronic kidney disease with stage 1 through stage 4 chronic kidney disease, or unspecified chronic kidney disease (principal); N18.4 Chronic kidney disease, stage 4 (severe)
CPT/HCPCS: 36415; 80051; 82565; 84520

== ENCOUNTER 2025-06-17 15:17 | Outpatient (AMB) | payer MEDICARE, BC, SELFPAY ==
[2023-04-05 14:09] VITALS: BP 114/54; BP 134/64; BP 144/80; BMI 18.7
--- NOTE | 2025-06-17 15:40 | HO.NEPHOV ---
Vital Signs 06/17/25 15:41 Height 5 ft 8 in Weight 122 lb 4 oz BMI 18.6 BP 118/88 Blood Pressure Location Lt brachial Position Sitting Pulse 82 Pulse Source Pulse Oximeter Pulse Oximetry (%) 97 Oxygen Delivery Method Room Air Intake Visit Reasons: 3 mo fu w/ 2 sets of labs-LVM Echocardiologist Required: No Accompanied by: Self / Same As Patient Allergies dogs and cats Allergy (Mild, Uncoded 03/11/25 12:44) Unknown year round seasonal Allergy (Unknown, Uncoded 03/11/25 12:44) Unknown HPI Comments Details: I had the privilege of seeing Mango in follow-up of his hypertension as well as chronic kidney disease. He is a diabetic. His HbA1c is marginally worse. He is on Farxiga. His serum creatinine is better. He had history of coronary artery bypass grafting . He denies nausea, vomiting, diarrhea, shortness of breath, proximal nocturnal dyspnea, orthopnea, pedal edema or urinary symptoms. He has not been taking any nonsteroidal anti-inflammatory medications. 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 His serum K has been normal on Kionex 3 times a week [facility] Medical History (Updated 03/13/25 @ 09:43 by Maxi Griffiths MD) Chronic kidney insufficiency Hyperkalemia Diabetes Surgical History History of colonoscopy (~12/04/18) Family History Mother No problems noted. Father No problems noted. Social History Household Members: Spouse Housing: House Do you presently have visiting nurse or other home services: Yes (meals on wheels) Alcohol intake: never Comment: rings appropriately, 1 assist with walker Patient Tobacco Use Status: Never used Tobacco e-Cigarette/Vaping Use: Never Used service: No Current occupational status: retired Cognitive needs: Yes (cane) Hearing needs: Yes (bilateral hearing aids.) Vision needs: No Review of Systems Const All systems reviewed & are unremarkable except as noted in HPI and below Physical Exam Vital Signs: Last Vital Signs Pulse 82 06/17/25 15:41 BP 118/88 06/17/25 15:41 Pulse Ox 97 06/17/25 15:41 Oxygen Delivery Method Room Air 06/17/25 15:41 BMI result Body Mass Index 18.6 Const General: comfortable and no acute distress Orientation/consciousness: patient oriented x3 HEENT Head: Yes normocephalic Mouth: Normal oral and palatal mucosa present Eyes EOM: EOMs intact bilaterally Neck Neck: Yes supple Resp Auscultation: clear to auscultation bilaterally Cardio Jugular venous distension: no JVD Rate: regular rate GI Palpation (GI): Soft to palpation Auscultation: normal bowel sounds General: Yes no CVA tenderness Back/Spine/Pelvis Back: no CVA tenderness Skin General skin exam: no rashes or lesions noted Neuro General: patient oriented x3 and moves all extremities Extrem General: Yes no pedal edema Results Reviewed Nephrology Results: Hgb, (14.0-18.0) 15.6 g/dl 02/27/25 WBC, (4.8-10.8) 5.6 X10*3/uL 02/27/25 Plt Count, (160-400) 118 X10*3/uL L 02/27/25 Sodium, (135-145) 141 mmol/L 06/10/25 Potassium, (3.3-5.1) 4.9 mmol/L 06/10/25 Chloride, (96-108) 109 mmol/L H 06/10/25 Carbon Dioxide, (22-29) 24 mmol/L 06/10/25 BUN, (9-16) 39 mg/dL H 06/10/25 Creatinine, (0.5-1.4) 1.60 mg/dL H 06/10/25 Calcium, (8.4-10.2) 8.9 mg/dL Δ 02/27/25 Urine Protein, (Neg-Trace) 30 (1+) mg/dL H 02/27/25 Urine Creatinine 83.17 mg/dL 02/27/25 Assessment & Plan Assessment & Plan (1) Hypertension: Code(s): I10 - Essential (primary) hypertension Category: Medical Qualifiers: Hypertension type: primary hypertension Qualified Code(s): I10 - Essential (primary) hypertension (2) CKD (chronic kidney disease) stage 4, GFR 15-29 ml/min: Code(s): N18.4 - Chronic kidney disease, stage 4 (severe) Category: Medical (3) Hyperkalemia: Code(s): E87.5 - Hyperkalemia Category: Medical Plan Mango has CKD stage 4. Her renal functions are stable. His serum K is normal on Kionex 3 times a week which I may increase to 4 times a week if his K goes high. His Hb A1c needs to be better. His blood pressure is at goal. His volume status is optimal. He is on Farxiga. He is not on any MEI inhibitor or ARB. His urine output is good. He avoids nonsteroidal anti-inflammatory medications and tries to keep himself well hydrated. I have not made any medication changes today. Follow up labs ordered. All his questions were answered Orders: Orders Creatinine 4 Months E87.5 - Hyperkalemia, I10 - Essential (primary) hypertension, N18.4 - Chronic kidney disease, stage 4 (severe) Hemoglobin A1c 4 Months E87.5 - Hyperkalemia, I10 - Essential (primary) hypertension, N18.4 - Chronic kidney disease, stage 4 (severe) Blood Urea Nitrogen 4 Months E87.5 - Hyperkalemia, I10 - Essential (primary) hypertension, N18.4 - Chronic kidney disease, stage 4 (severe) Electrolytes 4 Months E87.5 - Hyperkalemia, I10 - Essential (primary) hypertension, N18.4 - Chronic kidney disease, stage 4 (severe) Coding Level of Care Code Est Pt Level 4 (53703) Diagnoses Primary hypertension I10 Hypertension type: primary hypertension CKD (chronic kidney disease) stage 4, GFR 15-29 ml/min N18.4 Hyperkalemia E87.5
[2025-06-17 15:41] VITALS: BP 118/88; PULSE 82; O2SAT 97; BMI 18.6
--- OUTSIDE RECORDS SUMMARY | 2025-06-17 17:43 | XMS_ITS | Encounter Summary ---
Author Organization [facility] Address [address] [place] [address] [place] [address] Phone Care Team Providers Care Executive Office Manager Name Role Phone Beny Berrios MD Primary Care Provider Reason for Referral * MRI/CAT Scan - Closed Specialty Diagnoses / Procedures Referred By Stiven lopes Referred To Contact Radiology Diagnoses Abnormal electrocardiogram Procedures NC Myocardial Perfusion Stress Single NC Myocardial Perfusion Exercise Multiple Alison Wayne NP Phone: tel: Referral ID Status Reason Start Date Expiration Date Visits Re quested Visits Authorized [id number] Closed 11/05/2018 11/05/2019 1 1 Encounter Details Date Type Department Care Team (Latest Contact Info) Description 12/06/2018 Ancillary Orders [facility] [address], [address] [place] [address] Alison Wayne NP [address] [place] [address] Abnormal electrocardiogram Social History Tobacco Use Types [...] Info) Description 02/05/2025 Procedure Pass [facility] [address] [place] [address] 07/06/2025 12:30 PM EDT Appointment Echo [facility] [address] [place] [address] Sathish Matthews MD [address] [facility], [address] [place] [address] [email or web address] 08/12/2025 8:20 AM EST Office Visit [facility] [address], [address] [place] [address] Sathish Matthews MD [address] [facility], [address] [place] [address] [email or web address] documented as of this encounter Results * [...] in SPECT format, reconstructed tomographically and compared [id number] in short axis, horizontal long axis and [...] stress report for full details. Rolando Man [employer] . Stress Function Comments Post-stress ejection fraction was 48%. Stress end diastolic index: 62 mL/m2. Stress end systolic index: 32 mL/m2. Nuclear Prior Study There is no prior study available for comparison. Perfusion Scoring Stress Summed Score: 0 Percent Normal: 0.00% The left ventricular perfusion is normal. us Alison Wayne NP CV NM CARDIAC Final Result documented in this encounter Visit Diagnoses Diagnosis Ventricular ectopy- Primary Other premature beats Abnormal electrocardiogram Nonspecific abnormal electrocardiogram (ECG) (EKG) Abnormal electrocardiogram Nonspecific abnormal electrocardiogram (ECG) (EKG) documented in this encounter Care Teams Executive Office Manager Relationship Specialty Start Date End Date Beny Berrios MD [address] [place] [address] [place] [address] PCP - General Internal Medicine 07/02/18 documented as of this encounter Additional Source Comments The information contained in this document represents components of the legal health record. It is not the complete legal health record.[facility]
--- OUTSIDE RECORDS SUMMARY | 2025-06-17 17:43 | XMS_ITS | Continuity of Care Document ---
Author Organization [facility] [address] [facility] [place] [address] Phone [phone] Care Team Providers Care Cutter Wet Machine Name Role Phone Beny Berrios M.D. Care Team Information Receiv er [phone] Problems Active Problems Provider Date Type 2 diabetes mellitus Richard Samuel M.D. Onset: 05/10/2023 Coronary artery bypass graft Richard Samuel M.D. Onset: 05/10/2023 Chronic kidney disease stage 3 Richard Samuel M.D. Onset: 09/01/2024 Social History Type Date Description Comments Sex Male Sex Unknown Tobacco Use Start: Unknown Never Smoked Cigarettes ETOH Use Never used alcohol Allergies and adverse reactions Description No Known Drug Allergies Medications Active Medications SIG Qnty Indications Order ing Provider Date BD Short NDL Pen [id number] Use And Discard 1 Pen Needle as Directed 5 Times Daily 500units Richard Samuel M.D. 04/22/2025 BD Alcohol MisSwabs Swabs Use 1 Alcohol Pad To Disinfect The Area Before Injection 500units Richard Samuel M.D. 04/22/2025 Tntrcze93zr Tablets 1 tablet by mouth every day 90tabs Richard Samuel M.D. 01/05/2025 Alcohol PrepPads 70% Pads use 1 alcohol pad to disinfect the are before injection dx: e11.9 500units Richard Samuel M.D. 03/05/[address] 1 by mouth every day Richard Samuel M.D. 05/10/2023 Freestyle Rosalie 3/Sensor/Glucose Monitoring Gmvkhr6Eyapcq Misc one sensor to skin every 10 days dx: e11.9 3units E11.9 Richard Samuel M.D. 05/10/2023 BD Pen Needle/Short/Ultra- Fine/31G X 8mm31G X 8 mm Misc use as directed 5 times daily DX: E11.9 500units E11.9 Richard Samuel M.D. Lschtskpj21jh Tablets Take 1/2 Tablet By Mouth Every Morning & 1/2 Tablet By Mouth In The Evening Beny Berrios M.D. Rlnrsbqvrse58ua Tablets Take 1 Tablet By Mouth Daily. Beny Berrios M.D. Insulin Lispro (1 Unit Dial)100Unit/ML Solution Pen-Inject inject 24 units per day as directed for 90 days 45ml Richard Samuel M.D. Clopidogrel Qyqnsnnjy34km Tablets Take 1 Tablet By Mouth Every Day Unknown Trulicity0.75mg/0.5 ML Solution Pen-Inject Inject 0.75 MG Subcutaneously Once Weekly. Rotate Injection Sites. Beny Berrios M.D. Metoprolol Succinate ER25mg Tablets ER 24HR Take 1 Tablet By Mouth Every Day Unknown Tamsulosin HCL0.4mg Capsules 1 cap by mouth every night 90caps Beny Berrios M.D. Atorvastatin Exgbcyy15qf Tablets Take 1 Tablet By Mouth Every Day AT Bedtime Unknown Vital Signs Date Vital Result Comment 05/14/2025 9:26am BP Systolic 130 mmHg BP Diastolic 80 mmHg Heart Rate 72 /min Height 68 inches 5'8 Weight 143.00 lb BMI (Body Mass Index) 21.7 kg/m2 Results Test Acquired Date Facility Test Result H/L Range N ote Hemoglobin A1c 05/14/2025 Inhouse Hemoglobin A1c 7.4 Glucose Fingerstick 05/14/2025 Inhouse Glucose Fingerstick 143 Hemoglobin A1c 01/05/2025 Inhouse Hemoglobin A1c 7.8% [...] Fingerstick 153 Procedures Date Code Description Status 05/14/2025 29347 Glucose Monitoring Interpeta tion And Report Completed 02/14/2024 40071 Glucose Monitoring Interpeta tion And Report Completed Medical Devices Description No Information Available Encounters Type Date Location Provider Dx Diagnosis Office Visit 05/14/2025 9:15a Main Office Richard Samuel M.D. E11.9 Type 2 diabetes mellitus without complications N18.30 Chronic kidney disea se, stage 3 unspecified Assessments Date Code Description Provider 05/14/2025 E11.9 Type 2 diabetes mellitus without complications Richard Samuel M.D. 05/14/2025 N18.30 Chronic kidney disease stage 3 Richard Samuel M.D. Plan of Treatment Future Appointment(s):* 10/01/2025 10:15 am - Richard Samuel M.D. at Main Office 05/14/2025 - Richard Samuel M.D.* E11.9 Type 2 diabetes mellitus without complications * N18.30 Chronic kidney disease stage 3 Functional Status Description No Information Available Mental Status Description No Information Available Referrals Description No Information Available
--- OUTSIDE RECORDS SUMMARY | 2025-06-17 17:44 | XMS_ITS | Encounter Summary ---
Author Organization [facility] Address [address] [place] [address] [place] [address] Phone Care Team Providers Care Director Oncology Name Role Phone Beny Berrios MD Primary Care Provider Encounter Details Date Type Department Care Team (Late Contact Info) Description 01/16/2019 Ancillary Orders [facility] [address] [place] [address] Armando Corbett MD [address] [place] [phone] [email or web address] Social History Tobacco Use Types Packs/Day Years Used Date Smoking Tobacco: Never Smokeless Tobacco: Never Sex and Gender Information Value Date Recorded Sex Assigned at Not on file Legal Sex Male 6:19 PM EST Gender Identity Not on file Sexual Orientation Not on file documented as of this encounter Plan of Treatment Upcoming Encounters Date Type Department Care Team ([facility] Contact Info) Description 02/05/2025 Procedure Pass Echo Lab [address] [place] [address] 07/06/2025 12:30 PM EDT Appointment Echo Lab [address] [place] [address] Sathish Matthews MD 22 [facility], [address] [address] 08/12/2025 8:20 AM EST Office Visit [facility] [address], [address] [place] [address] Sathish Matthews MD [address] [place] [address], [address] [place] [address] [email or web address] documented as of this encounter Visit Diagnoses Not on filedocumented in this encounter Care Teams Director Oncology Relationship Specialty Start Date End Date Beny Berrios MD [address] [place] [address] Dr DENIS [address] [place] [address] PCP - General Internal Medicine 07/02/18 documented as of this encounter Additional Source Comments The information contained in this document represents components of the legal health record. It is not the complete legal health record.[facility]
--- OUTSIDE RECORDS SUMMARY | 2025-06-17 17:44 | XMS_ITS | Encounter Summary ---
Author Organization [facility] Address [address] [place] [address] [place] [address] Phone Care Team Providers Care Cupola Melting Supervisor Name Role Phone Beny Berrios MD Primary Care Provider Encounter Details Date Type Department Care Team (Late st Contact Info) Description 01/16/2019 Ancillary Orders Non-Invasive Cardiology [address] [place] [address] [place] [address] Armando Corbett MD [address] [place] [phone] [email or web address] Ventricular ectopy Social History Tobacco Use Types Packs/Day Years Used Date Smoking Tobacco: Never Smokeless Tobacco: Never Sex and Gender Information Value Date Recorded Sex Assigned at Not on file Legal Sex Male 6:19 PM EST Gender Identity Not on file Sexual Orientation Not on file documented as of this encounter Plan of Treatment Upcoming Encounters Date Type Department Care Team (Late Contact Info) Description 02/05/2025 Procedure Pass Echo Lab [address] [place] [address] 07/06/2025 12:30 PM EDT Appointment Echo Lab [address] [place] [address] Sathish Matthews MD 22 [facility], [address] [address] 08/12/2025 8:20 AM EST Office Visit [facility] [address] [place] [address] [address] Floor, [address] [place] [address] Sathish Matthews MD [address] [facility], [address] [place] [address] [email or web address] documented as of this encounter Results * Holter Monitor 24 Hours (01/16/2019 2:30 PM EDT) Anatomical Region Laterality Modality Heart Other Narrative 01/17/2019 4:20 PM EDT 24-hour monitor: Sinus rhythm is sinus with 2, maximum 118, average 81 bpm. There are 5 PVCs and 21 PACs during the 24 hours. The patient's diary did not contain any symptoms. There were no patient event markers. Impression: Normal 24-hour monitor. No symptoms reported. Procedure Note Mango Maharaj MD - 01/17/2019 24-hour monitor: Sinus rhythm is sinus with 2, maximum 118, average 81bpm. There are 5 PVCs and 21 PACs during the 24 hours. The patient'sdiary did not contain any symptoms. There were no patient eventmarkers. Impression: Normal 24-hour monitor. No symptoms reported. Armando Corbett MD [facility] C[facility]IAC SERVICES ORDERABLES Final Result documented in this encounter Visit Diagnoses Diagnosis Ventricular ectopy Other premature beats Ventricular ectopy Other premature beats documented in this encounter Care Teams Cupola Melting Supervisor Relationship Specialty Start Date End Date Beny Berrios MD [address] [place] [address] [place] [address] PCP - General Internal Medicine 07/02/18 documented as of this encounter Additional Source Comments The information contained in this document represents components of the legal health record. It is not the complete legal health record.[facility]
--- OUTSIDE RECORDS SUMMARY | 2025-06-17 17:44 | XMS_ITS | Patient Health Record ---
Author Organization [facility] Address [address] [place] [address] Care Team Providers Care Civil Engineering Teacher Name Role Phone Agustina (RETIRED) Beny SUN [...] Problem Status W/U Status Risk Notes Problem [id number] Colon cancer screening (Z12.11) Active confirmed Problem [id number] [facility] (current) use of oral hypoglycemic drugs (Z79.84) Active confirmed Problem [id number] Hypertension, unspecified type (I10) Active confirmed Plan Of Treatment Future Test Test Name Order Date COLONOSCOPY 08/14/2018 Insurance Providers Payer Name Payer Address Payer Phone Subscriber Number Group Number Insured Name Patient Relationship to Insured Coverage Start Date Coverage End Date MEDICARE OF [place] [address] [place] [address] [id number] MOHAMUD CASSIDY Self - patient is the insured [facility] [address] [place], [place] [id number] MOHAMUD CASSIDY Self - patient is the insured Medical (General) History Medical History History ICD Code hypertension diabetes mellitus TB gastroesophageal reflux disease Surgical History Surgery Date(Month/Year) deviated septum repair 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
--- OUTSIDE RECORDS SUMMARY | 2025-06-17 17:44 | XMS_ITS | Clinical Summary ---
Author Organization [facility] Address [address] [place] [id number] Phone Care Team Providers Care Cognos Bi Developer Name Role Phone Beny Berrios MD Primary Care Provider Allergies Active Allergy Reactions Criticality Noted Date Comments Cat/Feline Products 11/30/2022 Chlorphen-Phenyltolox -Pe-Ppa 09/20/2018 Other Other (See Comments) 11/25/2021 Cats, pollen- runny nose, tearing eyes Pollen Extracts 11/30/2022 Levonorgestrel-Ethiny l Estrad 07/02/2018 Medications glipiZIDE (GLUCOTROL) 10 MG tablet Take 10 mg by mouth daily. Active tamsulosin (FLOMAX) 0.4 mg Cap Take 0.4 mg by mouth daily. Active aspirin 81 MG EC tablet Take 81 mg by mouth daily. 3 Active dulaglutide (TRULICITY) 0.75 mg/0.5 mL subcutaneous injection Inject 0.75 mg under the skin once a week. 3 Active insulin lispro (ADMELOG, HUMALOG) 100 unit/mL injection pen Inject 16 Units under the skin 3 (three) times a day before meals. 6-16 units, sliding scale 3 Active BD INSULIN PEN NEEDLE UF SHORT 31 gauge x 5/16 Ndle 3 (three) times a day before meals. 3 Active FARXIGA 10 mg tablet Take 10 mg by mouth daily. 3 Active ferrous sulfate (FEROSUL) 325 mg (65 mg pilot station iron) tablet Take 325 mg by mouth daily with breakfast. Active betamethasone dipropionate 0.05 % cream APPLY AM AND PM TO DRY PATCHES LEFT LEG FOR 2 WEEKS 4 Active blood-glucose sensor (FREESTYLE MICH 3 SENSOR) Sangeeta 3 Active carvedilol (COREG) 6.25 MG tablet TAKE 1 TABLET BY MOUTH TWICE A DAY WITH MEALS 180 tablet 3 4 Active atorvastatin (LIPITOR) 80 MG tabletIndications :Medication refill TAKE 1 TABLET BY MOUTH NIGHTLY AT BEDTIME. 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 Continue amlodipine and metoprolol. Assessment & Plan (09/15/2020 9:01 AM EST): As above was told blood pressure okay . No numbers. Assessment & Plan (03/17/2020 9:16 AM EDT): Well-controlled on present therapy. No changes. Assessment & Plan (09/10/2019 9:27 AM EST): Well-controlled today. No changes. Assessment & Plan (03/11/2019 12:27 PM EDT): Reasonable control today. I made no changes. Assessment & Plan (01/02/2019 11:29 AM EDT): Have started amlodipine at 5 mg. I avoided either MEI inhibitors or angiotensin receptor susan because of his tendency for hyperkalemia. I will leave further adjustments to Dr. Greene. Abnormal electrocardiogram 11/05/2018 Ventricular ectopy 07/02/2018 Assessment & Plan (09/15/2020 9:01 AM EST): Denies palpitations or lightheaded spells. Assessment & Plan (03/17/2020 9:16 AM EDT): ECG today is sinus rhythm without ectopy. No significant changes. Asymptomatic. Assessment & Plan (09/10/2019 9:27 AM EST): Frequent premature contractions but asymptomatic. Assessment & Plan (03/11/2019 12:27 PM EDT): Remarkable response to his carvedilol with virtually elimination of ectopy. Assessment & Plan (01/02/2019 11:27 AM EDT): If we have managed to suppress his ectopy down to several thousand without ventricular tachycardia I think that would be adequate. I am going to repeat his Holter monitor today. Assessment & Plan (09/20/2018 11:44 AM EST): Although his ventricular function is normal there is at least a chance that he could develop a myopathy based solely on his degree of ventricular ectopy. I would like to be sure that it is safe for him to exercise so he is going to undergo a treadmill exercise test and I am going to push his carvedilol to 6.25 twice a day. If his exercise test is benign we will likely repeat his Holter monitor. Assessment & Plan (07/02/2018 3:15 PM EDT): I would like to quantify the degree of ectopy and exclude underlying structural heart disease. I think ischemia is less likely considering his history so I am going to ask him to wear a Holter monitor and come back for an echocardiogram. I will consider stress testing after the above. I have made no changes in his medications. His ECG today is entirely normal and has a single PVC. Diabetes mellitus type 2 in nonobese 07/02/2018 Hyperlipidemia, unspecified 07/02/2018 Assessment & Plan (09/15/2020 9:01 AM EST): Remains on a statin. No recent labs. Will do so when he feels safe. Assessment & Plan (03/17/2020 9:16 AM EDT): Statin is unchanged. Will have labs drawn sometime next week. Assessment & Plan (09/10/2019 9:28 AM EST): Lipids are fine with an LDL in the high 70s and 8. Creatinine stable at 1.5. LFTs normal. Assessment & Plan (03/11/2019 12:27 PM EDT): Good profile with an LDL in the 80s and HDL in the 50s. Assessment & Plan (01/02/2019 11:28 AM EDT): No recent labs. He will do them shortly. Assessment & Plan (07/02/2018 3:14 PM EDT): He is appropriately on a statin. I do not have recent lab values to review. Social History Tobacco Use Types Packs/Day Years Used Date Smoking Tobacco: Never Smokeless Tobacco: Never Tobacco Cessation:Counseling Given: Not Answered Alcohol Use Standard Drinks/Week Comments Yes 0 (1 standard drink = 0.6 oz pur e alcohol) rarely Education Answer Date Recorded Are you interested in more education? Not on steven e 01/23/2023 Are you concerned about learning? Not on file 01/23/2023 No 01/23/2023 No 01/23/2023 Digital Access Answer Date Recorded No 02/18/2023 No 02/18/2023 Reliable internet access at home? Not on file 02/18/2023 Device with a working camera? Not on file Sex and Gender Information Value Date Recorded Sex Assigned at Not on file Legal Sex Male 6:19 PM EST Gender Identity Not on file Sexual Orientation Not on file Last Filed Vital Signs Vital Sign Reading Time Taken Comments Blood Pressure 120/66 02/05/2025 8:38 AM EDT Pulse 98 02/05/2025 8:38 AM EDT Temperature - - Respiratory Rate - - Oxygen Saturation 98% 02/05/2025 8:38 AM EDT Inhaled Oxygen Concentration - - Weight 55.8 kg (123 lb) 02/05/2025 8:38 AM EDT Height 172.7 cm (5' 7.99 ) 02/05/2025 8:38 AM ED T Body Mass Index 18.71 02/05/2025 8:38 AM EDT Plan of Treatment Upcoming Encounters Date Type Department Care Team (Late st Contact Info) Description 02/05/2025 Procedure Pass Echo Lab [address] [place] [address] 07/06/2025 12:30 PM EDT Appointment Echo Lab [address] [place] [address] Sathish Matthews MD [address] [place] [address], [address] [address] 08/12/2025 8:20 AM EST Office Visit [facility] [address] [place] [address] [address]rd Floor, [address] [place] [address] Sathish Matthews MD [address] [place] [address], [address] [address] [email or web address] Health Maintenance Due Date Last Done Comments Adult Td,Tdap Booster 1940 DEPRESSION SCREENING 1953 RSV VACCINE (1 - 1-dose 75+ series) 2016 DIABETIC EYE EXAM 07/02/2018 ZOSTER VACCINES (2 of 2) 08/22/2018 06/27/2018 HEMOGLOBIN A1C 03/21/2023 09/20/2022 INFLUENZA VACCINE (#1) 2025 , 05/25/2020, 06/27/2018, Additional history exists COVID-19 VACCINE ( season) 2025 04/17/2022, 07/07/2021, 11/24/2020, Additional history exists BLOOD PRESSURE 08/08/2025 02/05/2025 PNEUMOCOCCAL VACCINES (50+ years) Completed 06/27/2018, 06/18/2017 HEPATITIS A VACCINES Aged Out No long er eligible based on patient's age to complete this topic HIB VACCINES Aged Out No longer eligi ble based on patient's age to complete this topic MENINGOCOCCAL VACCINES (ACWY) Aged Out No longer eligible based on patient's age to complete this topic MENINGOCOCCAL VACCINES (B) Aged Out N o longer eligible based on patient's age to complete this topic Medical Devices Not on file Insurance [place] [address] Member Subscriber Plan / Payer (Ef fective 2009-Present) Name:Mohamud Sahni Relation to Subscriber:Self Name:MOHAMUD SAHNI S Payer ID:[id number] (NAIC) Group ID:[id number] Type:[facility] Address: [facility] [id number] [place] [address] MEDICARE PART A & [place] [address] Member Subscriber Plan / Payer (Ef fective 2009-) Name:Mohamud Sahni Relation to Subscriber:Self Name:MOHAMUD SAHNI Payer ID:[id number] (NAIC) Group ID:[id number] Type:PPO Address: [place] [address] MEDICARE PART A & B Member Subscriber Plan / Payer (Ef fective 2009-) Name:Mohamud Sahni Relation to Subscriber:Self Name:MOHAMUD SAHNI Payer ID:[id number] (NAIC) Group ID:[id number] Type:PPO Address: [facility] [id number] [place] [address] MEDICARE PART A & B Member Subscriber Plan / Payer ( fective 2009-) Name:CecibijanMohamud szymanski Relation to Subscriber:Self Name:CECIBijanMOHAMUD SZYMANSKI Payer ID:[id number] (NAIC) Group ID:[id number] Type:PPO Address: [address] [place] [address] MEDICARE PART A & B Member Subscriber Plan / Payer ( fective 2009-) Name:Mohamud Sahni Relation to Subscriber:Self Name:CECIBijanMOHAMUD SZYMANSKI Payer ID:[id number] (NAIC) Group ID:[id number] Type:PPO Address: [address] [place] [address] MEDICARE PART A & B Member Subscriber Plan / Payer (Ef fective 2009-Present) Name:CecibijanMohamud szymanski Relation to Subscriber:Self Name:MOHAMUD SAHNI Payer ID:[id number] (NAIC) Group ID:[id number] Type:PPO Address: [place] [address] MEDICARE PART A & B Member Subscriber Plan / Payer (Ef fective 2009-Present) Name:CecibijanMohamud szymanski Relation to Subscriber:Self Name:SHAHRZADMOHAMUD Payer ID:[id number] (NAIC) Group ID:[id number] Type:PPO Address: [facility] [id number] [place] [address] MEDICARE PART A & B Member Subscriber Plan / Payer (Ef fective 2005-Present) Name:Mohamud Sahni Member ID:[id number] Relation to Subscriber:Self Name:Mohamud Sahni Subscriber ID:[id number] Payer ID:[id number] Group ID:Not on file Type:Medicare Address: [facility] [employer] [facility] [address] [place] [address] Member Subscriber Plan / Payer (Ef fective 2009-Present) Name:Mohamud Sahni Relation to Subscriber:Self Name:MOHAMUD SAHNI Payer ID:[id number] (NAIC) Group ID:[id number] Type:PPO Address: [place] [address] MEDICARE PART A & B Member Subscriber Plan / Payer (Ef fective 2005-Present) Name:Mohamud Sahni Member ID:[id number] Relation to Subscriber:Self Name:Mohamud Sahni Subscriber ID:[id number] Payer ID:[id number] Group ID:Not on file Type:Medicare Address: [facility] [employer] [facility] [address] [place] [address] Member Subscriber Plan / Payer (Ef fective 2009-Present) Name:Mohamud Sahni Relation to Subscriber:Self Name:MOHAMUD SAHNI Payer ID:[id number] (NAIC) Group ID:[id number] Type:PPO Address: [address] [place] [address] MEDICARE PART A & B Care Teams Cognos Bi Developer Relationship Specialty Start Date End Date Beny Berrios MD [address] [place] [address] [place] [address] PCP - General Internal Medicine 07/02/18 Additional Source Comments The information contained in this document represents components of the legal health record. It is not the complete legal health record.[facility]
--- OUTSIDE RECORDS SUMMARY | 2025-06-17 17:44 | XMS_ITS | Clinical Summary ---
Author Organization [facility] Address [address] [place] [address] Phone Care Team Providers Care Production Sorter Name Role Phone Beny Berrios MD Primary Care Provider [phone] Allergies Active Allergy Reactions Criticality Noted Date [...] Relation Comments Diabetes Mother Heart disease Mother [place] Relation Status Comments Father Mother Social History [...] average glucose, using the formula of the R8L-Ggpnlqs Average Glucose study (ADAG), Diabetes Care, Vol.31,#8, Apr. 2007 Blood specimen (specimen) Venous blood / Unknown 09/20/2022 2:50 PM EST 09/20/2022 2:50 PM EST us Maxi Griffiths MD LAB BLOOD ORDERABLES Final Resul t [place] from Last 3 Months or Most Recently Relevant to Health Maintenance Insurance Medicare [facility] Medicare [facility] Care Teams Production Sorter Relationship Specialty Start Date End Date Beny Berrios MD [address] [place] PCP - General 10/04/20
== END 2025-06-17 15:55 | disposition home or self-care (01) ==
LOC: HO.HKA 15:18
PROVIDERS: PCP Internal Medicine; Visit Provider Internal Medicine Nephrology
DX: I12.9 Hypertensive chronic kidney disease with stage 1 through stage 4 chronic kidney disease, or unspecified chronic kidney disease (principal); N18.4 Chronic kidney disease, stage 4 (severe); E87.5 Hyperkalemia
CPT/HCPCS: 99214

== ENCOUNTER → 2025-06-17 15:17 | Outpatient (BNVA) | payer MEDICARE, BC, SELFPAY ==
[2023-04-05 14:09] VITALS: BP 114/54; BP 134/64; BP 144/80; BMI 18.7
== END ==
PROVIDERS: PCP Internal Medicine; Visit Provider Internal Medicine Nephrology
DX: I10 Essential (primary) hypertension (principal); N18.4 Chronic kidney disease, stage 4 (severe); E87.5 Hyperkalemia
CPT/HCPCS: 99212

== ENCOUNTER 2025-07-13 08:26 | Outpatient (AMB) | payer MEDICARE, BC, SELFPAY ==
[2023-04-05 14:09] VITALS: BP 114/54; BP 134/64; BP 144/80; BMI 18.7
--- NOTE | 2025-07-13 08:28 | A.OFFPC_ITS ---
Vital Signs 07/13/25 08:30 Height 5 ft 5.5 in Weight 122 lb 4 oz BMI 20.0 BP 120/70 Blood Pressure Location Rt brachial Position Sitting Respiration 16 Pulse 86 Pulse Source Pulse Oximeter Temp 96.8 F Temp Source Temporal Artery Scan Pulse Oximetry (%) 94 Oxygen Delivery Method Room Air Intake Visit Reasons: SYBIL Mcgovern V Internet Salesperson Required: No Accompanied by: Self / Same As Patient Allergies dogs and cats Allergy (Mild, Uncoded 03/11/25 12:44) Unknown year round seasonal Allergy (Unknown, Uncoded 03/11/25 12:44) Unknown Medication List - Last Reconciled 07/13/25 by Sid Villaseñor MD aspirin 81 mg PO DAILY atorvastatin 80 mg PO DAILY carvedilol 1 tab PO BID@0400,1600 dapagliflozin propanediol (Farxiga) 10 mg PO DAILY dulaglutide (Trulicity) 0.75 mg (0.5 mL) subcut QWEEK glipizide 5 mg PO DAILY insulin lispro 10 units (0.1 mL) subcut TID 90 days sodium polystyrene sulfonate 30 grams PO 3XW tamsulosin 0.4 mg PO BEDTIME 90 days Tobacco use date assessed: 03/11/25 Dental Screening Dental Screen Date: 02/25/25 HPI HPI Comments History of Present Illness Details The patient is an 85-year-old male presenting with ear discomfort. The patient reports experiencing trouble in the ear for a few months with intermittent pain, describing it as feeling like something inside. The pain increased slightly on the day of the visit but is currently mild. The patient previously had an ear infection and is concerned about reoccurrence. He has noticed some blockages but no earwax upon visiting [facility] for ear cleaning one year ago. Occasionally, he uses hydrogen peroxide and showers to manage the discomfort. The patient has sensorineural hearing loss and feels unable to use his hearing aid effectively due to discomfort. No reports of ear drainage, fever, or neck pain. The patient will be referred to an ENT specialist for further evaluation. The patient manages other chronic conditions like coronary artery disease, hypertension, diabetes, and chronic kidney disease. Medical History: - Coronary Artery Disease - Hypercholesterolemia - Hypertension - Type 2 Diabetes Mellitus - Chronic Kidney Disease Stage 3B - Benign Prostatic Hyperplasia Medications: - Aspirin 81 mg for coronary artery dise ase - Atorvastatin 80 mg for hypercholestero lemia - Carvedilol 6.25 mg twice a day for hyp ertension - Farxiga for diabetes and heart health - Trulicity 0.75 mg once weekly for diab etes - Glipizide 5 mg twice daily for diabete s - Lispro insulin, 10 units three times a day - Tamsulosin for benign prostatic hyperp lasia Diagnostic Results: - Labs: Hemoglobin A1c at 7.7 (recent, n ot specified when) - Labs: Previous Hemoglobin A1c at 8.1 i n February [facility] Medical History (Updated 07/13/25 @ 09:19 by Sid Villaseñor MD) Hyperlipidemia BPH (benign prostatic hyperplasia) Ear pain, right Chronic kidney insufficiency Hyperkalemia Diabetes Surgical History (Updated 07/13/25 @ 09:17 by Sid Villaseñor MD) History of colonoscopy (~12/04/18) Family History Mother No problems noted. Father No problems noted. Social History Household Members: Spouse Housing: House Do you presently have visiting nurse or other home services: Yes (meals on wheels) Alcohol intake: never Comment: rings appropriately, 1 assist with walker Patient Tobacco Use Status: Never used Tobacco e-Cigarette/Vaping Use: Never Used service: No Current occupational status: retired Cognitive needs: Yes (cane) Hearing needs: Yes (bilateral hearing aids.) Vision needs: No Questionnaire Thrive Questionnaire Date Thrive assessed: 03/11/25 NIRMALA-7 AMB Questionnaire NIRMALA-7 Date NIRMALA - 7 assessed: 03/11/25 Source: Developed by Drs. Rey Cabrera, Sara Piña, Farrukh Castillo and colleagues, with an educational bettye from [employer]. Review of Systems Const Details: - Ears: Reports mild ear discomfort, feeling of blockage, and difficulty hearing - General: Denies fever, nausea, vomiting, headaches, vision changes All systems reviewed & are unremarkable except as reviewed in HPI and above Physical exam (Primary Care) Vital Signs: Last Vital Signs Temp 96.8 F 07/13/25 08:30 Pulse 86 07/13/25 08:30 Resp 16 07/13/25 08:30 BP 120/70 07/13/25 08:30 Pulse Ox 94 07/13/25 08:30 Oxygen Delivery Method Room Air 07/13/25 08:30 BMI result Body Mass Index 20.0 Tobacco/Smoking Status: Tobacco use Status Tobacco use date assessed 03/11/25 07/13/25 08:35 Patient Tobacco Use Status Never used Tobacco 07/13/25 08:35 e-Cigarette/Vaping Use Never Used 07/13/25 08:35 Thrive Assessment: Date of Thrive Assessment Date Thrive assessed 03/11/25 07/13/25 08:35 Const Other: General: Alert and oriented, Well nourished, No acute distress. Eye: Pupils are equal, round and reactive to light, Intact accommodation, Extraocular movements are intact, Normal conjunctiva, Vision unchanged. HENT: Normocephalic, Atraumatic, Tympanic membranes are clear, Hearing impaired, Oral mucosa is moist, No pharyngeal erythema, Ear canals patent, Right ear appears slightly swollen, No significant wax buildup. Respiratory: Lungs CTA bilaterally, No wheeze, Respirations are non-labored. Cardiovascular: Regular rate, Regular rhythm, S1 auscultated, S2 auscultated, No murmur, Good pulses equal in all extremities, Normal peripheral perfusion, No edema. Gastrointestinal: Soft, Non-tender, Non-distended, Normal bowel sounds, No organomegaly. Musculoskeletal: Normal range of motion, Normal strength, No tenderness, No swelling, No deformity, Normal gait. Integumentary: Warm, Dry, [place], Intact. Neurologic: Alert, Oriented, Normal sensory, Normal motor function, No focal defects, Cranial Nerves II-XII are grossly intact, Normal deep tendon reflexes. Psychiatric: Cooperative, Appropriate mood & affect, Normal judgment. 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, with long-term current use of insulin E11.22; N18.4; Z79.4 Diabetes mellitus hull sorter insulin use: with assisted use Diabetes mellitus complication status: with kidney complications Diabetes mellitus complication detail: with chronic kidney disease Chronic kidney disease stage: stage 4 (GFR 15-29) CKD (chronic kidney disease) stage 4, GFR 15-29 ml/min N18.4 Benign prostatic hyperplasia without lower urinary tract symptoms N40.0 Lower urinary tract symptom presence: symptoms absent Other hyperlipidemia E78.49 Hyperlipidemia type: other hyperlipidemia Assessment & Plan Assessment & Plan (1) Ear pain, right: Comment: - Suspected inner ear issue with no apparent wax build-up. Will refer to ENT for further evaluation and management. Code(s): H92.01 - Otalgia, right ear Category: Medical (2) Hypertension: Comment: - Continue carvedilol 6.25 mg twice daily. Current blood pressure readings are satisfactory. Code(s): I10 - Essential (primary) hypertension Category: Medical Qualifiers: Hypertension type: primary hypertension Qualified Code(s): I10 - Essential (primary) hypertension (3) Hx of CABG: Comment: - Continue aspirin therapy. Blood pressure is well controlled; monitor regularly. Code(s): Z95.1 - Presence of aortocoronary bypass graft Category: Surgical (4) DM type 2 (diabetes mellitus, type 2): Comment: - Maintain current regimen with Farxiga, Trulicity, glipizide, and Lispro insulin. Recent A1c levels have improved to 7.7. Code(s): E11.9 - Type 2 diabetes mellitus without complications Category: Medical Qualifiers: Diabetes mellitus assisted insulin use: with assisted use Diabetes mellitus complication status: with kidney complications Diabetes mellitus complication detail: with chronic kidney disease Chronic kidney disease stage: stage 4 (GFR 15-29) Qualified Code(s): E11.22 - Type 2 diabetes mellitus with diabetic chronic kidney disease; N18.4 - Chronic kidney disease, stage 4 (severe); Z79.4 - prison (current) use of insulin (5) CKD (chronic kidney disease) stage 4, GFR 15-29 ml/min: Comment: - No specific treatment change discussed; maintain current management & continued follow up with nephrology Code(s): N18.4 - Chronic kidney disease, stage 4 (severe) Category: Medical (6) BPH (benign prostatic hyperplasia): Comment: - Continue tamsulosin for urinary flow management. Code(s): N40.0 - Benign prostatic hyperplasia without lower urinary tract symptoms Category: Medical Qualifiers: Lower urinary tract symptom presence: symptoms absent Qualified Code(s): N40.0 - Benign prostatic hyperplasia without lower urinary tract symptoms (7) Hyperlipidemia: Comment: - Continue atorvastatin 80 mg daily. Code(s): E78.5 - Hyperlipidemia, unspecified Category: Medical Qualifiers: Hyperlipidemia type: other hyperlipidemia Qualified Code(s): E78.49 - Other hyperlipidemia Plan: Healthcare maintenance: - Monitor blood pressure and blood sugar levels at home. - Follow up with nephrology for CKD management. Patient was informed and verbally consented to the use of an ambient scribe for clinic note documentation during this visit. Plan I discussed the current state of the patient's ear discomfort, noting the lack of wax buildup and referral to an ENT for further evaluation. We reviewed the patient's medications for coronary artery disease, hypercholesterolemia, hypertension, type 2 diabetes, chronic kidney disease, and benign prostatic hyperplasia. The management strategies for each condition were emphasized, with continuation of current medications being important to maintain control. The patient's recent lab results were satisfactory, with blood sugar showing some improvement. Discussion included monitoring plans for existing conditions and referral for specialized care for ear issues. The patient agreed with the current plan. Orders: Referrals Ear/Nose/Throat Referral H92.01 - Otalgia, right ear Patient Instructions: - Follow up with ENT as scheduled for ear evaluation. - Continue all medications as prescribed. - Monitor blood pressure and blood sugars daily and maintain records. - Keep regular appointments with your healthcare providers to manage chronic conditions. - Reach out if symptoms worsen or if you have concerns.
[2025-07-13 08:30] VITALS: BP 120/70; PULSE 86; RESP 16; TEMP 36; O2SAT 94
--- OUTSIDE RECORDS SUMMARY | 2025-07-13 08:49 | XMS_ITS | Clinical Summary ---
Author Organization [facility] Address [address] [place] [address] Phone Care Team Providers Care Sweatband Perforator Name Role Phone Beny Berrios MD Primary Care Provider [phone] Allergies Active Allergy Reactions Criticality Noted Date [...] Relation Comments Diabetes Mother Heart disease Mother [place] Relation Status Comments Father Mother Social History [...] average glucose, using the formula of the E2O-Nhfuicg Average Glucose study (ADAG), Diabetes Care, Vol.31,#8, Apr. 2007 Blood specimen (specimen) Venous blood / Unknown 09/20/2022 2:50 PM EST 09/20/2022 2:50 PM EST us Maxi Griffiths MD LAB BLOOD ORDERABLES Final Resul t [place] from Last 3 Months or Most Recently Relevant to Health Maintenance Insurance Medicare [facility] Medicare [facility] Care Teams Sweatband Perforator Relationship Specialty Start Date End Date Beny Berrios MD [address] [place] PCP - General 10/04/20
--- OUTSIDE RECORDS SUMMARY | 2025-07-13 08:49 | XMS_ITS | Encounter Summary ---
Author Organization [facility] Address [address] [place] [address] [address] [place] [address] Phone Care Team Providers Care Radial Drill Operator For Plastic Name Role Phone Beny Berrios MD Primary Care Provider Encounter Details Date Type Department Care Team (Late Contact Info) Description 01/16/2019 Ancillary Orders Non-Invasive Cardiology [address] [place] [address] [place] [address] Armando Corbett MD [address] [place] [address] [email or web address] Ventricular ectopy Social History Tobacco [...] Info) Description 02/05/2025 Procedure Pass [facility] [address] [place] [address] 09/14/2025 1:00 PM EST Appointment Echo Lab [address] [place] [address] Sathish Matthews MD 22 [facility], [address] [place] [address] 12/16/2025 1:20 PM EDT Office Visit [facility] [address] [place] [address] 3rd Floor, [address] [place], [place] [id number] Sathish Matthews MD 22 [facility], [address] [place] [address] [email or web address] documented as of this encounter [...] beats documented in this encounter Care Teams Radial Drill Operator For Plastic Relationship Specialty Start Date End Date Beny Berrios MD [address] [place] [address] [place] [address] PCP - General Internal Medicine 07/02/18 documented as of this encounter Additional Source Comments The information contained in this document represents components of the legal health record. It is not the complete legal health record.[facility]
--- OUTSIDE RECORDS SUMMARY | 2025-07-13 08:49 | XMS_ITS | Clinical Summary ---
Author Organization [facility] Address [address] [place] [address] Phone Care Team Providers Care Harp Repairer Name Role Phone Beny Berrios MD Primary [...] ferrous sulfate (FEROSUL) 325 mg (65 mg absentee-shawnee iron) tablet Take 325 mg by mouth [...] Info) Description 02/05/2025 Procedure Pass Echo Lab [address] [place] [address] 09/14/2025 1:00 PM EST Appointment Echo Lab [address] [place] [address] Sathish Matthews MD [address] [place] [address], [address] [address] 12/16/2025 1:20 PM EDT Office Visit [facility] [address] [place] [address] 3rd Floor, [address] [place] [address] Sathish Matthews MD [address] [place] [address], [address] [address] [email or web address] Health Maintenance Due Date Last Done Comments [...] topic Medical Devices Not on file [place] [address] [address] Member Subscriber Plan / Payer (Ef fective 2009-Present) Name:Mohamud Sahni Relation to Subscriber:Self Name:MOHAMUD SAHNI S Payer ID:[id number] (NAIC) Group ID:[id number] Type:[facility] Address: [facility] [id number] [place] [address] MEDICARE PART A & [place] [address] Member Subscriber Plan / Payer (Ef fective 2009-) Name:Mohamud Sahni Relation to Subscriber:Self Name:MOHAMUD SAHNI Payer ID:[id number] (NAIC) Group ID:[id number] Type:PPO Address: [place] [address] MEDICARE PART A & B Member Subscriber Plan / Payer (Ef fective 2009-) Name:Mohamud Sahni Relation to Subscriber:Self Name:MOHAMUD SAHNI Payer ID:[id number] (NAIC) Group ID:[id number] Type:PPO Address: [facility] [address] [place] [address] MEDICARE PART A & B Member Subscriber Plan / Payer ( fective 2009-) Name:CecibijanMohamud szymanski Relation to Subscriber:Self Name:CECIBijanMOHAMUD SZYMANSKI Payer ID:[id number] (NAIC) Group ID:[id number] Type:PPO Address: [address] [place] [address] MEDICARE PART A & B Member Subscriber Plan / Payer ( fective 2009-) Name:Mohamud Sahni Relation to Subscriber:Self Name:CECIBijanMOHAMUD SZYMANSKI Payer ID:[id number] (NAIC) Group ID:[id number] Type:PPO Address: [address] [place] [address] MEDICARE PART A & B Member Subscriber Plan / Payer (Ef fective 2009-Present) Name:CecibijanMohamud szymanski Relation to Subscriber:Self Name:MOHAMUD SAHNI Payer ID:[id number] (NAIC) Group ID:[id number] Type:PPO Address: [place] [address] MEDICARE PART A & B Member Subscriber Plan / Payer (Ef fective 2009-Present) Name:CecibijanMohamud szymanski Relation to Subscriber:Self Name:SHAHRZADMOHAMUD Payer ID:[id number] (NAIC) Group ID:[id number] Type:PPO Address: [facility] [id number] [place] [address] MEDICARE PART A & B Member Subscriber Plan / Payer (Ef fective 2005-Present) Name:Mohamud Sahni Member ID:[id number] Relation to Subscriber:Self Name:Mohamud Sahni Subscriber ID:[id number] Payer ID:[id number] Group ID:Not on file Type:Medicare Address: [facility] Sennari [facility]ITAL[facility] [address] [place] [address] Member Subscriber Plan / Payer (Ef fective 2009-Present) Name:Mohamud Sahni Relation to Subscriber:Self Name:MOHAMUD SAHNI Payer ID:[id number] (NAIC) Group ID:[id number] Type:PPO Address: [place] [address] MEDICARE PART A & B Member Subscriber Plan / Payer (Ef fective 2009-Present) Name:Mohamud Sahni Relation to Subscriber:Self Name:MOHAMUD SAHNI Payer ID:[id number] (NAIC) Group ID:[id number] Type:PPO Address: [address] [place] [address] MEDICARE PART A & B Care Teams Harp Repairer Relationship Specialty Start Date End Date Beny Berrios MD [address] [place] [address] [place] [address] PCP - General Internal Medicine 07/02/18 Additional Source Comments The information contained in this document represents components of the legal health record. It is not the complete legal health record.[facility]
--- OUTSIDE RECORDS SUMMARY | 2025-07-13 08:49 | XMS_ITS | Encounter Summary ---
Author Organization [facility] Address [address] [place] [address] [place] [address] Phone Care Team Providers Care Oracle Soa Consultant Name Role Phone Beny Berrios MD Primary Care Provider Reason for Referral * MRI/CAT Scan - Closed Specialty Diagnoses / Procedures Referred By Stiven lopes Referred To Contact Radiology Diagnoses Abnormal electrocardiogram Procedures NC Myocardial Perfusion Stress Single NC Myocardial Perfusion Exercise Multiple Alison Wayne NP Phone: tel: Referral ID Status Reason Start Date Expiration Date Visits Re quested Visits Authorized [id number] Closed 11/05/2018 11/05/2019 1 1 Encounter Details Date Type Department Care Team (Latest Contact Info) Description 12/06/2018 Ancillary Orders [facility] [address] Floor, [address] [place] [address] Alison Wayne NP [address] [place] [address] [place] [address] Abnormal electrocardiogram Social History Tobacco Use Types [...] Info) Description 02/05/2025 Procedure Pass Echo Lab [address] [place] [id number] 09/14/2025 1:00 PM EST Appointment Echo Lab [address] [place] [address] Sathish Matthews MD 22 [facility], [address] [place] [address] [email or web address] 12/16/2025 1:20 PM EDT Office Visit [facility] 22 [facility] 3rd Floor, [address] [place] [address] Sathish Matthews MD 22 [facility], [address] [place] [address] [email or web address] documented as of this encounter Results * [...] in SPECT format, reconstructed tomographically and compared [id number] in short axis, horizontal long axis and [...] stress report for full details. Rolando Man CHIEF LOCK OPERATOR . Stress Function Comments Post-stress ejection [...] (EKG) documented in this encounter Care Teams Oracle Soa Consultant Relationship Specialty Start Date End Date Beny Berrios MD [address] [place] [address] [place] [address] PCP - General Internal Medicine 07/02/18 documented as of this encounter Additional Source Comments The information contained in this document represents components of the legal health record. It is not the complete legal health record.[facility]
--- OUTSIDE RECORDS SUMMARY | 2025-07-13 08:49 | XMS_ITS | Encounter Summary ---
Author Organization [facility] Address [address] [place] [address] [place] [address] Phone Care Team Providers Care Motion Picture Scene Builder Name Role Phone Beny Berrios MD Primary Care Provider Encounter Details Date Type Department Care Team (Late Contact Info) Description 01/16/2019 Ancillary Orders [facility] [address] [place] [address] Armando Corbett MD [address] [place] [address] [email or web address] Social History Tobacco Use Types Packs/Day Years Used Date Smoking Tobacco: Never Smokeless Tobacco: Never Sex and Gender Information Value Date Recorded Sex Assigned at Not on file Legal Sex Male 6:19 PM EST Gender Identity Not on file Sexual Orientation Not on file documented as of this encounter Plan of Treatment Upcoming Encounters Date Type Department Care Team ([facility] Contact Info) Description 02/05/2025 Procedure Pass Echo Lab [address] [place] [address] 09/14/2025 1:00 PM EST Appointment Echo Lab [address] [place] [address] Sathish Matthews MD 22 [facility], [address] [place] [address] 12/16/2025 1:20 PM EDT Office Visit [facility] [address] 3rd Floor, [address] [place] [address] Sathish Matthews MD [address] [place] [address], [address] [place] [address] [email or web address] documented as of this encounter Visit Diagnoses Not on filedocumented in this encounter Care Teams Motion Picture Scene Builder Relationship Specialty Start Date End Date Beny Berrios MD [address] [place] [address] Dr DENIS [address] [place] [address] PCP - General Internal Medicine 07/02/18 documented as of this encounter Additional Source Comments The information contained in this document represents components of the legal health record. It is not the complete legal health record.[facility]
--- OUTSIDE RECORDS SUMMARY | 2025-07-13 08:49 | XMS_ITS | Patient Health Record ---
Author Organization [facility] Address [address] [place] [address] Care Team Providers Care Mobile Developer Name Role Phone Agustina (RETIRED) Beny SUN Primary Care Provide r Unavailable Stevo Beaver Jr Unavailable [phone] Reason For Referral No Information Medications Medication [...] GM As directed Orally Over the specified time.; Duration: 1 day(s) Active Simvastatin 40 MG 1 [...] Problem Status W/U Status Risk Notes Problem Colon cancer screening (130479853) Colon cancer screening (Z12.11) Active confirmed Problem Long-term current use of drug therapy (179473407) long-term (current) use of oral hypoglycemic drugs (Z79.84) Active confirmed Problem Essential hypertension (57354204) Hypertension, unspecified type (I10) Active confirmed Plan Of Treatment Future Test Test Name Order Date COLONOSCOPY 08/14/2018 Insurance Providers Payer Name Payer Address Payer Phone Subscriber Number Group Number Insured Name Patient Relationship to Insured Coverage Start Date Coverage End Date MEDICARE OF [place] [address] [place] [address] [id number] MOHAMUD CASSIDY Self - patient is the insured [facility] [address] [place], [place] [id number] MOHAMUD CASSIDY Self - patient is the insured Medical (General) History Medical History History ICD Code hypertension diabetes mellitus TB gastroesophageal reflux disease Surgical History Surgery Date(Month/Year) deviated septum repair 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
--- OUTSIDE RECORDS SUMMARY | 2025-07-13 08:49 | XMS_ITS | Continuity of Care Document ---
Author Organization [facility] [address] [facility] [address] [place] [address] Phone [phone] Care Team Providers Care Head Trimmer Name Role Phone Beny Berrios M.D. Care Team Information Receiv er [phone] Problems Active Problems Provider Date Type 2 diabetes mellitus Richard Samuel M.D. Onset: 05/10/2023 Coronary artery bypass graft Richard Samuel M.D. Onset: 05/10/2023 Chronic kidney disease stage 3 Richard aSmuel M.D. Onset: 09/01/2024 Social History Type Date Description Comments Sex Male Sex Unknown Tobacco Use Start: Unknown Never Smoked Cigarettes ETOH Use Never used alcohol Allergies and adverse reactions Description No Known Drug Allergies Medications Active Medications SIG Qnty Indications Order ing Provider Date BD Short NDL Pen [id number] Use And Discard 1 Pen Needle as Directed 5 Times Daily 500units Richard Samuel M.D. 04/22/2025 BD Alcohol MisSwabs Swabs Use 1 Alcohol Pad To Disinfect The Area Before Injection 500units Richard Samuel M.D. 04/22/2025 [id number] Tablets 1 tablet by mouth every day 90tabs Richard Samuel M.D. 01/05/2025 Alcohol PrepPads 70% Pads use 1 alcohol pad to disinfect the are before injection dx: e11.9 500units Richard Samuel M.D. 03/05/[address] 1 by mouth every day Richard Samuel M.D. 05/10/2023 Freestyle Rosalie 3/Sensor/Glucose Monitoring Sfteqr8Sxlpbf Misc one sensor to skin every 10 days dx: e11.9 3units E11.9 Richard Samuel M.D. 05/10/2023 BD Pen Needle/Short/Ultra- Fine/31G X 8mm31G X 8 mm Misc use as directed 5 times daily DX: E11.9 500units E11.9 Richard Samuel M.D. Dcjkpwyai93op Tablets Take 1/2 Tablet By Mouth Every Morning & 1/2 Tablet By Mouth In The Evening Beny Berrios M.D. Feguncwzjef52bg Tablets Take 1 Tablet By Mouth Daily. Beny Berrios M.D. Insulin Lispro (1 Unit Dial)100Unit/ML Solution Pen-Inject inject 24 units per day as directed for 90 days 45ml Richard Samuel M.D. Clopidogrel Zgdsisxwe96ux Tablets Take 1 Tablet By Mouth Every Day Unknown Trulicity0.75mg/0.5 ML Solution Pen-Inject Inject 0.75 MG Subcutaneously Once Weekly. Rotate Injection Sites. Beny Berrios M.D. Metoprolol Succinate ER25mg Tablets ER 24HR Take 1 Tablet By Mouth Every Day Unknown Tamsulosin HCL0.4mg Capsules 1 cap by mouth every night 90caps Beny Berrios M.D. Atorvastatin Mbvemfh68rl Tablets Take 1 Tablet By Mouth Every [...] 153 Procedures Date Code Description Status 05/14/2025 93871 Glucose Monitoring Interpeta tion And Report Completed 02/14/2024 17639 Glucose Monitoring Interpeta tion And Report Completed [...]
== END 2025-07-13 08:48 | disposition home or self-care (01) ==
LOC: HO.HMCHD 08:27
PROVIDERS: PCP Student in an Organized Health Care Education/Training Program; Visit Provider Student in an Organized Health Care Education/Training Program
DX: H92.01 Otalgia, right ear (principal); I12.9 Hypertensive chronic kidney disease with stage 1 through stage 4 chronic kidney disease, or unspecified chronic kidney disease; Z95.1 Presence of aortocoronary bypass graft; E11.22 Type 2 diabetes mellitus with diabetic chronic kidney disease; N18.4 Chronic kidney disease, stage 4 (severe); Z79.4 Long term (current) use of insulin; N40.0 Benign prostatic hyperplasia without lower urinary tract symptoms; E78.49 Other hyperlipidemia

== ENCOUNTER → 2025-07-13 08:26 | Outpatient (BNVA) | payer MEDICARE, BC, SELFPAY ==
[2023-04-05 14:09] VITALS: BP 114/54; BP 134/64; BP 144/80; BMI 18.7
== END ==
PROVIDERS: PCP Internal Medicine; Visit Provider Student in an Organized Health Care Education/Training Program
DX: H92.01 Otalgia, right ear (principal); E11.22 Type 2 diabetes mellitus with diabetic chronic kidney disease; I12.9 Hypertensive chronic kidney disease with stage 1 through stage 4 chronic kidney disease, or unspecified chronic kidney disease; N18.4 Chronic kidney disease, stage 4 (severe); N40.0 Benign prostatic hyperplasia without lower urinary tract symptoms; E78.49 Other hyperlipidemia; Z79.4 Long term (current) use of insulin; Z79.899 Other long term (current) drug therapy; Z95.1 Presence of aortocoronary bypass graft
CPT/HCPCS: 99212

== ENCOUNTER 2025-09-02 08:46 | Outpatient (AMB) | payer MEDICARE, BC, SELFPAY ==
[2023-04-05 14:09] VITALS: BP 114/54; BP 134/64; BP 144/80; BMI 18.7
[2025-09-02 08:51] VITALS: BP 122/70; PULSE 70; TEMP 36.2; O2SAT 97; BMI 20.3
--- NOTE | 2025-09-02 08:51 | MHC.PC.OV ---
Vital Signs 09/02/25 08:51 Height 5 ft 5.5 in Weight 124 lb BMI 20.3 BP 122/70 Blood Pressure Location Rt brachial Position Sitting Pulse 70 Pulse Source Pulse Oximeter Temp 97.2 F Temp Source Temporal Artery Scan Pulse Oximetry (%) 97 Oxygen Delivery Method Room Air Intake Visit Reasons: 6 Month F/U / From Dr Mueller - see comments Odd Job Worker Required: No Accompanied by: Self / Same As Patient Allergies dogs and cats Allergy (Mild, Uncoded 03/11/25 12:44) Unknown year round seasonal Allergy (Unknown, Uncoded 03/11/25 12:44) Unknown Tobacco use date assessed: 09/02/25 Fall risk assessment: No Falls in past year Last assessed Fall Risk: 09/02/25 Dental Screening Dental Screen Date: 09/02/25 Did you have a dental visit in the last 12 months?: No Did you have a dental problem in the last 6 months where you did not have access to dental care?: No HPI HPI Comments History of Present Illness Details The patient is an 85 year old male presenting with a cough. For the past week, he has had symptoms of a viral infection, which he believes he may have contracted from his who had the flu. He reports low-grade fever with a temperature around 97?F and has been taking nqqj-szu-daefxxz cough medicine for symptomatic relief. The patient has a history of hypertension, hyperlipidemia, and diabetes. His medications for these conditions include aspirin 81 mg daily, atorvastatin 80 mg, carvedilol 5 mg twice daily, Farxiga 10 mg, Trulicity 0.75 weekly, and insulin three times a day, typically 6 units per dose. He also takes tamsulosin for his prostate. 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 Medical History: - Hypertension - Hyperlipidemia - Diabetes mellitus - Benign prostatic hyperplasia Medications: - Aspirin 81 mg daily for heart health - Atorvastatin 80 mg for cholesterol - Carvedilol 5 mg twice daily for blood pressure - Farxiga 10 mg for diabetes - Trulicity 0.75 injection on Saturdays - Insulin (Lispro) 6 units three times a day - Tamsulosin at night for prostate - Ugre-fgy-sppcqfu cough medicine (daytime and nighttime formulations) Diagnostic Results: - Vital Signs: Reports blood pressure is good. [facility] Medical History (Updated 09/02/25 @ 09:16 by Sid Villaseñor MD) Acute URI Hyperlipidemia BPH (benign prostatic hyperplasia) Ear pain, right Chronic kidney insufficiency Hyperkalemia Diabetes Surgical History History of colonoscopy (~12/04/18) Family History Mother No problems noted. Father No problems noted. Social History Household Members: Spouse Housing: House Do you presently have visiting nurse or other home services: Yes (meals on wheels) Alcohol intake: never Comment: rings appropriately, 1 assist with walker Patient Tobacco Use Status: Never used Tobacco e-Cigarette/Vaping Use: Never Used service: No Current occupational status: retired Cognitive needs: Yes (cane) Hearing needs: Yes (bilateral hearing aids.) Vision needs: No Questionnaire PHQ-9 Over the last 2 weeks, how often have you been bothered by any of the following problems? 1. Little interest or pleasure in doing things: not at all 2. Feeling down, depressed, or hopeless: not at all 3. Trouble falling or staying asleep, or sleeping too much: not at all 4. Feeling tired or having little energy: not at all 5. Poor appetite or overeating: not at all 6. Feeling bad about yourself - or that you are a failure or have let yourself or your family down: not at all 7. Trouble concentrating on things, such as reading the newspaper or watching television: not at all 8. Moving or speaking so slowly that other people could have noticed. Or the opposite - being so fidgety or restless that you have been moving around a lot more than usual: not at all Depression Screening Interpretation: Negative Depression Screening Done: Yes 91608 - PHQ-9 Billing: Yes Source: Developed by Drs. Rey Cabrera, Farrukh Arzola and colleagues, with an educational bettye from [employer]. Thrive Questionnaire Date Thrive assessed: 03/11/25 NIRMALA-7 AMB Questionnaire NIRMALA-7 Date NIRMALA - 7 assessed: 03/11/25 Source: Developed by Drs. Rey Cabrera, Farrukh Arzola and colleagues, with an educational bettye from [employer]. Review of Systems Narrative - Constitutional: Reports feeling better - Respiratory: Reports a cough that previously caused aphonia. All systems reviewed & are unremarkable except as reviewed in HPI and above Physical exam (Primary Care) Vital Signs: Last Vital Signs Temp 97.2 F 09/02/25 08:51 Pulse 70 09/02/25 08:51 BP 122/70 09/02/25 08:51 Pulse Ox 97 09/02/25 08:51 Oxygen Delivery Method Room Air 09/02/25 08:51 BMI result Body Mass Index 20.3 Tobacco/Smoking Status: Tobacco use Status Tobacco use date assessed 09/02/25 09/02/25 08:57 Patient Tobacco Use Status Never used Tobacco 09/02/25 08:57 e-Cigarette/Vaping Use Never Used 09/02/25 08:57 Depression Screening Interpretation: Negative Thrive Assessment: Date of Thrive Assessment Date Thrive assessed 03/11/25 09/02/25 08:57 Narrative - Vitals: Blood pressure is noted to be good. - Respiratory: Lungs are clear on auscultation. Coding Level of Care Code Est Pt Level 4 (79708) Complex visit Add On G2211 Diagnoses Acute URI J06.9 Primary hypertension I10 Hypertension type: primary hypertension Other hyperlipidemia E78.49 Hyperlipidemia type: other hyperlipidemia Hx of CABG Z95.1 Type 2 diabetes mellitus with stage 4 chronic kidney disease, with long-term current use of insulin E11.22; N18.4; Z79.4 Diabetes mellitus intermediate designer insulin use: with correction use Diabetes mellitus complication status: with kidney complications Diabetes mellitus complication detail: with chronic kidney disease Chronic kidney disease stage: stage 4 (GFR 15-29) CKD (chronic kidney disease) stage 4, GFR 15-29 ml/min N18.4 Benign prostatic hyperplasia without lower urinary tract symptoms N40.0 Lower urinary tract symptom presence: symptoms absent Additional Codes PHQ-9 - 46111 - PHQ-9 Billing: Yes ([id number]) Assessment & Plan Assessment & Plan (1) Acute URI: Comment: - The patient presents with a cough for the past week, likely viral in origin, as his recently had the flu. - Management includes symptomatic treatment with xouz-vdh-fpvypul cough medicine and supportive care. - No further intervention is needed at this time. Code(s): J06.9 - Acute upper respiratory infection, unspecified Category: Medical (2) Hypertension: Comment: - Continue carvedilol 6.25 mg twice daily. Current blood pressure readings are satisfactory. Code(s): I10 - Essential (primary) hypertension Category: Medical Qualifiers: Hypertension type: primary hypertension Qualified Code(s): I10 - Essential (primary) hypertension (3) Hyperlipidemia: Comment: - Continue atorvastatin 80 mg daily. Code(s): E78.5 - Hyperlipidemia, unspecified Category: Medical Qualifiers: Hyperlipidemia type: other hyperlipidemia Qualified Code(s): E78.49 - Other hyperlipidemia (4) Hx of CABG: Comment: - Continue aspirin therapy. Blood pressure is well controlled; monitor regularly. Code(s): Z95.1 - Presence of aortocoronary bypass graft Category: Surgical (5) DM type 2 (diabetes mellitus, type 2): Comment: - Maintain current regimen with Farxiga, Trulicity, glipizide, and Lispro insulin. - Continue follow up with Endocrinology Code(s): E11.9 - Type 2 diabetes mellitus without complications Category: Medical Qualifiers: Diabetes mellitus correction insulin use: with intermediate designer use Diabetes mellitus complication status: with kidney complications Diabetes mellitus complication detail: with chronic kidney disease Chronic kidney disease stage: stage 4 (GFR 15-29) Qualified Code(s): E11.22 - Type 2 diabetes mellitus with diabetic chronic kidney disease; N18.4 - Chronic kidney disease, stage 4 (severe); Z79.4 - superintendent container terminal (current) use of insulin (6) CKD (chronic kidney disease) stage 4, GFR 15-29 ml/min: Comment: - No specific treatment change discussed; maintain current management & continued follow up with nephrology Code(s): N18.4 - Chronic kidney disease, stage 4 (severe) Category: Medical (7) BPH (benign prostatic hyperplasia): Comment: - Continue tamsulosin for urinary flow management. Code(s): N40.0 - Benign prostatic hyperplasia without lower urinary tract symptoms Category: Medical Qualifiers: Lower urinary tract symptom presence: symptoms absent Qualified Code(s): N40.0 - Benign prostatic hyperplasia without lower urinary tract symptoms Plan: Health Maintenance: - The patient is scheduled to return in six months for a physical exam. Patient was informed and verbally consented to the use of an ambient scribe for clinic note documentation during this visit. Plan I advised the patient that his symptoms are consistent with a viral infection, likely contracted from his who had the flu. I reassured him that this illness is common and recommended symptomatic treatment with rpxh-tlg-krmvaho cough medicine and rest. We reviewed his current medications, and I confirmed his understanding of the dosages. I conducted a brief lung exam, which was clear. We agreed to schedule a follow-up visit in six months for a full physical. Medications: Changed From insulin lispro 10 units (0.1 mL) subcut TID 90 days 27 mL 1RF To insulin lispro 6 units (0.06 mL) subcut TID 16.2 mL 1RF 90 days Patient Instructions: - Continue taking your cough medicine for your cough. - Make sure to get plenty of rest and take it easy. - Continue all your current medications for blood pressure, cholesterol, diabetes, and prostate as prescribed. - We will see you back in six months for a physical exam.
== END 2025-09-02 09:05 | disposition home or self-care (01) ==
LOC: HO.HMCHD 08:47
PROVIDERS: PCP Internal Medicine; Visit Provider Student in an Organized Health Care Education/Training Program
DX: J06.9 Acute upper respiratory infection, unspecified (principal); I12.9 Hypertensive chronic kidney disease with stage 1 through stage 4 chronic kidney disease, or unspecified chronic kidney disease; E78.49 Other hyperlipidemia; Z95.1 Presence of aortocoronary bypass graft; E11.22 Type 2 diabetes mellitus with diabetic chronic kidney disease; N18.4 Chronic kidney disease, stage 4 (severe); Z79.4 Long term (current) use of insulin; N40.0 Benign prostatic hyperplasia without lower urinary tract symptoms

== ENCOUNTER → 2025-09-02 08:46 | Outpatient (BNVA) | payer MEDICARE, BC, SELFPAY ==
[2023-04-05 14:09] VITALS: BP 114/54; BP 134/64; BP 144/80; BMI 18.7
== END ==
PROVIDERS: PCP Internal Medicine; Visit Provider Student in an Organized Health Care Education/Training Program
DX: J06.9 Acute upper respiratory infection, unspecified (principal); I10 Essential (primary) hypertension; E78.5 Hyperlipidemia, unspecified; E78.49 Other hyperlipidemia; E11.22 Type 2 diabetes mellitus with diabetic chronic kidney disease; N18.4 Chronic kidney disease, stage 4 (severe); Z79.4 Long term (current) use of insulin; N40.0 Benign prostatic hyperplasia without lower urinary tract symptoms; Z13.39 Encounter for screening examination for other mental health and behavioral disorders; Z79.82 Long term (current) use of aspirin
CPT/HCPCS: 96127; 99212